=== PATIENT | female | born 1950 | race Caucasian/White ===

== ENCOUNTER → 2017-01-30 | Outpatient (CLI) | payer OTHER, BC ==
[~2017-01-30] MED LIST: ALBU1AER9 INH; CHOL100010 PO; CHOL100027 PO; CMD/1 PO; FLNIN NAE; FLNIN/ NAE; LEVO100T7 PO; TRAM100T PO; WARF-246 PO; WARF5TAB90 PO; [UNRECOGNIZED DRUG - CODE] PO
[2017-01-30 13:42] LABS: CREATININE 0.66 mg/dl (0.60-1.20)
== END | disposition home or self-care (01) ==
LOC: C.LAB 12:22
PROVIDERS: ATTEND Obstetrics & Gynecology
DX: Z00.00 Encounter for general adult medical examination without abnormal findings (principal)

== ENCOUNTER → 2017-02-04 | Outpatient (CLI) | payer OTHER, BC ==
[~2017-02-04] MED LIST changes: +GADAVIST IV PRN
--- NOTE | 2017-02-05 13:35 | MAMMOGRAPHY REPORT ---
BREAST MRI OF BOTH BREASTS : 02/04/2017 CLINICAL HISTORY: 67-year-old woman with a history of right breast DCIS status post lumpectomy. Pat ient presents for additional surveillance. COMPARISON: Comparison is made to exams dated: 01/24/2016 mammogram, 01/16/2015 mammogram, 07/25/2014 mammogram, 07/25/2014 ultrasound biopsy, 09/14/2013 specimen, and 07/18/2015 breast MRI - [facility]. TECHNIQUE: Using a 1.5 Humera magnet and dedicated breast coil, multisequence axial images were obtai gerardo through the breasts. After uneventful IV administration of 6 mL of Gadavist, dynamic multiphase contrast-enhanced axial images, and sagittal postcontrast were obtained. Temporal subtraction axia l images and 3-D MIP images are provided. Everything was then reviewed on a 3-D workstation, [employer]. FINDINGS: There is no significant background parenchymal enhancement in the breasts. There is expec abiel architectural distortion and stable postsurgical changes in the upper outer quadrant of the righ t breast, at the site of prior lumpectomy. There is a stable 4 mm biopsy-proven fibroadenoma in the far posterior 9:00 right breast. No new suspicious enhancing mass, non-mass enhancement, unexpecte d architectural distortion or suspicious kinetics are identified in either breast. No skin thickeni ng or nipple retraction is identified. No suspicious axillary, subpectoral or internal mammary lymp hadenopathy is seen. There is susceptibility artifact along the midline sternum, from prior median sternotomy. IMPRESSION: ACR BI-RADS CATEGORY 2: BENIGN 1. Stable MRI appearance of the breasts, including postsurgical changes in the right upper outer qu adrant, and a biopsy proven fibroadenoma in the 9:00 right breast. There is no MRI evidence of ernesto gnancy bilaterally. Continuation of annual screening mammography and additional surveillance with b reast MRI is recommended. 2. The patient is due for bilateral mammography at this time. The patient will receive written notification of the results. Lyndsay Bhakta M.D. ay/:02/04/2017 22:48:16 [employer]erry [employer] Captain: administrative services assistant, [facility] letter sent: Normal 1/2 BI-RADS Code: ACR BI-RADS Category 2: Benign
== END | disposition home or self-care (01) ==
LOC: C.MRI 15:25
PROVIDERS: ATTEND Obstetrics & Gynecology
DX: C50.919 Malignant neoplasm of unspecified site of unspecified female breast (principal); D24.1 Benign neoplasm of right breast

== ENCOUNTER → 2017-02-05 | Outpatient (CLI) | payer OTHER, BC ==
[~2017-02-05] MED LIST changes: -GADAVIST IV PRN
--- NOTE | 2017-02-05 15:41 | MAMMOGRAPHY REPORT ---
BILATERAL DIGITAL SCREENING MAMMOGRAM TOMOSYNTHESIS WITH CAD: 02/05/2017 CLINICAL HISTORY: Asymptomatic. Personal history of breast cancer. TECHNIQUE: Breast tomosynthesis in addition to standard 2D mammography was performed. Current study was also evaluated with a Computer Aided Detection (CAD) system. COMPARISON: Comparison is made to exams dated: 01/24/2016 mammogram, 02/02/2015 mammogram, 01/16/2015 mammogram, 07/25/2014 mammogram, 08/16/2013 mammogram, and 08/08/2013 mammogram - [facility]. BREAST COMPOSITION: There are scattered areas of fibroglandular density in both breasts. FINDINGS: No suspicious masses, calcifications, or areas of architectural distortion are noted in e ither breast. There has been no significant interval change compared to prior exams. There are stab le postsurgical changes in the right upper outer quadrant from prior lumpectomy. A linear scar iván er denotes a scar in the right upper outer breast. A biopsy marker clip is again noted in the right 9:00 breast. Bilateral benign-appearing calcifications, predominantly vascular calcifications, are again noted. Small cluster of calcifications in the left subareolar breast is stable dating back t o at least the 2008 exam, and considered benign given long-term stability. IMPRESSION: ACR BI-RADS CATEGORY 2: BENIGN There is no mammographic evidence of malignancy. A 1 year screening mammogram is recommended. The p atient will receive written notification of the results. Approximately 10% of breast cancers are not detected with mammography. A negative mammographic repor t should not delay biopsy if a clinically suggestive mass is present. Shima Arango M.D. ah/:02/05/2017 14:04:59 Type Cutter: Young DOWNEY(R)(M), [facility] letter sent: Normal 1/2 BI-RADS Code: ACR BI-RADS Category 2: Benign
== END | disposition home or self-care (01) ==
LOC: C.MAMM 10:13
PROVIDERS: ATTEND Obstetrics & Gynecology
DX: Z12.31 Encounter for screening mammogram for malignant neoplasm of breast (principal); Z85.3 Personal history of malignant neoplasm of breast

== ENCOUNTER → 2017-03-23 | Outpatient (CLI) | payer OTHER, BC ==
[2017-03-23 15:57] LABS: BASO % 0.4 %; BASO ABS # 0.03 K/uL (0-0.2); COMPLETE YES; EOS % 3.9 %; HEMATOCRIT 39.4 % (37-47); IG% 0.3 %; LYMPH % 22.1 %; LYMPH ABS # 1.54 K/uL (1.2-3.4); MEAN CELL VOLUME 95.6 fL (80-100); MEAN CORPUSCULAR HEMOGLOBIN 31.3 pg (25-34); MEAN CORPUSCULAR HGB CONC 32.7 g/dl (32-36); MEAN PLATELET VOLUME 10.6 fL (7.4-10.4); MONO % 6.7 %; NEUT % 66.6 %; PLATELET COUNT 254 K/uL (130-400); RED BLOOD COUNT 4.12 M/uL (4.2-5.4); WHITE BLOOD COUNT 6.98 K/uL (4.8-10.8)
[2017-03-23 16:05] LABS: INR 2.9 (0.9-1.1); PROTHROMBIN TIME (PATIENT) 32.9 SECONDS (9.0-12.0)
[2017-03-23 16:22] LABS: CALCIUM 9.3 mg/dl (8.5-10.1)
[2017-03-23 16:25] LABS: BLOOD UREA NITROGEN 15 mg/dl (7-18); BUN/CREATININE RATIO 21.9 (10-20); CARBON DIOXIDE 28 mmol/L (21-32); CHLORIDE 104 mmol/L (98-107); CREATININE 0.69 mg/dl (0.60-1.20); GLUCOSE 78 mg/dl (70-99); POTASSIUM 4.6 mmol/L (3.5-5.1); SODIUM 139 mmol/L (136-145)
[2017-03-23 16:35] LABS: THYROID STIMULATING HORMONE 0.981 uIu/ml (0.300-4.500)
== END | disposition home or self-care (01) ==
LOC: C.LAB 15:03
PROVIDERS: ATTEND Internal Medicine Geriatric Medicine
DX: E03.9 Hypothyroidism, unspecified (principal); M19.90 Unspecified osteoarthritis, unspecified site; Z79.01 Long term (current) use of anticoagulants; M85.80 Other specified disorders of bone density and structure, unspecified site

== ENCOUNTER 2017-08-11 16:54 | Emergency (ER) | payer OTHER, BC ==
[~2017-08-11] VITALS: Ht 171.5 cm; Wt 60.0 kg
[~2017-08-11 16:54] MED LIST changes: -CHOL100027 PO; -CMD/1 PO; -FLNIN/ NAE; -WARF-246 PO; -[UNRECOGNIZED DRUG - CODE] PO
[2017-08-11 16:56] VITALS: TEMP 37; Ht 171.5 cm; Wt 60.0 kg
[2017-08-11] MEDS ORDERED: WARF-246 PO (17:23)
[2017-08-11] MEDS ORDERED: CMD/1 PO (17:23)
[2017-08-11] MEDS ORDERED: CHOL100027 PO (17:23)
[2017-08-11] MEDS ORDERED: [UNRECOGNIZED DRUG - CODE] PO (17:23)
[2017-08-11] MEDS ORDERED: FLNIN/ NAE (17:23)
[2017-08-11] MEDS ORDERED: TRAMADOL HCL 50 MG TAB PO STA (17:30)
--- NOTE | 2017-08-11 17:57 | EMERGENCY ROOM VISIT NOTE ---
ED Visit Note First contact with patient: 17:22 CHIEF COMPLAINT: Left Foot pain HISTORY OF PRESENT ILLNESS: This 67-year-old female patient presents to the emergency department, approximately one hour after injuring her left foot. The patient is now complaining of swelling and pain in the left foot at rest and worse with weight bearing. The patient states she has not been able to bear weight without assistance since the injury occurred. The patient states she was on the confucianist of her cough match, when she did not realize there is an unmarked sprinkler head in a hole in the ground. The patient states she accidentally stepped into the hole, and believes she turned her foot outward. The patient denies any ankle pain, and states her pain is all located in the dorsal, lateral aspect of the left foot. She states she did fall sideways, but denies hitting her head. The patient rates the pain as throbbing and 9/10 with movement. The patient has not had relief of the pain, but she has not taken any pain medication. She did take her regularly prescribed tramadol this morning. No numbness or weakness. No ankle pain. There are no lacerations of the foot. The patient is able to move all of their toes, but this does cause discomfort. The patient has no discomfort with movement of the ankle without pain. No previous fracture to this foot. The patient is on Coumadin. REVIEW OF SYSTEMS: GENERAL: A 6 system review of systems was completed with positives and pertinent negatives in the HPI. ALLERGIES: Sulfa MEDICATIONS: Tramadol, Synthroid, Coumadin, vitamin D, albuterol, Flonase PMH: Artificial heart valve, arthritis, hypothyroidism SOCIAL HISTORY: Patient lives locally with family. She admits to occasional alcohol use. The patient denies drug or tobacco use. PHYSICAL EXAM: Vital Signs: Reviewed Nurse's notes, vital signs stable. GENERAL : Is a 67-year-old female, presents in a wheelchair, in no acute distress, but appears in pain, well-developed, well-nourished. MUSCULOSKELATAL: There is no visual deformity of the left foot. There is moderate erythema and ecchymosis. There is no warmth. There is tenderness and swelling over the dorsal, lateral aspect of the left foot. There is no tenderness over the lateral or medial malleolus. No tenderness of the tib/fib. The range of motion of the left foot is mildly limited secondary to pain. There is no tenderness over the plantar fascia. The skin is intact and there are no lacerations or puncture wounds. Dorsalis pedis pulse 2+. Capillary refill less than 2 seconds. RADIOLOGY: X-Ray Left Foot: LEFT FOOT 3 VIEWS CLINICAL HISTORY: Left foot injury and pain. FINDINGS: 3 views of left foot are obtained. No prior studies are available for comparison at the time of dictation. The skeletal structures are osteopenic. No fracture is seen. Mild to moderate arthritic changes present at the first metatarsophalangeal joint. The joint spaces of the foot are otherwise maintained. The overlying soft tissues are within normal limits. IMPRESSION: There is no radiographic evidence of left foot fracture. Electronically signed by: Serafin Nava M.D. 08/11/2017 6:01 PM Dictated Date/Time: 08/11/2017 5:57 PM EMERGENCY DEPARTMENT COURSE: I examined the patient. The patient was given 50 mg tramadol. I did offer the patient stronger pain medication and she declines. An X-ray of the left foot was reviewed by myself and radiologist and reveals no acute fracture or dislocation. The patient was placed in a fracture boot and instructed on the use of crutches. The patient was discharged home in good condition. The patient was seen and evaluated by Dr. Velázquez who is in agreement with the assessment and plan. I attest that I have personally reviewed the patient's current medication list. Patient was found to have normal blood pressure on screening and does not require follow-up. DIFFERENTIAL DIAGNOSIS: Fracture, contusion, sprain, strain, malignancy, and others DIAGNOSIS: Left foot contusion Problem List Surgical Problems: (1) H/O lumpectomy Status: Resolved (2) Hx of artificial heart valve replacement Status: Resolved Current/Historical Medications Scheduled Cholecalciferol (Vitamin D 1000 Unit), 1,000 INTER.UNIT PO DAILY Fluticasone Propionate (Fluticasone Propionate), 2 SPRAYS CHALO DAILY Levothyroxine Sodium (Levothyroxine Sodium), 100 MCG PO QAM Tramadol HCl (Tramadol HCl ER), 100 MG PO QAM Warfarin Sod (Warfarin Sodium), 1 MG PO DAILY Warfarin Sodium (Warfarin Sodium), 5 MG PO DAILY Allergies Coded Allergies: Sulfa Drugs (Verified Allergy, Unknown, RASH, 09/04/16) Vital Signs Date Time Temp Pulse Resp B/P (MAP) Pulse Ox O2 Delivery O2 Flow Rate FiO2 08/11/17 19:24 89 20 139/85 98 08/11/17 16:56 37.0 94 20 116/69 98 Room Air Medications Administered Medications (Trade) Dose Ordered Sig/Alex Route Start Time Stop Time Status Last Admin Dose Admin Tramadol HCl (Ultram Tab) 50 mg NOW STAT PO 08/11/17 17:30 08/11/17 17:32 DC 08/11/17 17:37 50 MG Departure Information Impression Primary Impression: Contusion of foot Dispostion Home / Self-Care Condition GOOD Referrals Jose Sherman M.D. (PCP) [facility] Patient Instructions ED Contusion Foot, My [facility] Additional Instructions ORTHOPEDIC INSTRUCTIONS: You were seen in the ED today for left foot injury. X-Ray did not show a fracture, however, I would like to treat you as if you have a fracture at this time due to signs/symptoms. Acetaminophen(Tylenol) may be used for fever or pain. Use 1000mg every six hours as needed. Avoid using more than 3000mg in a 24 hour period. Ice compresses for 20 minutes at a time four times daily for 2-3 days. Use the crutches as instructed. Rest and elevate your injury. Wear the post-op shoe while up and moving around. Return to the ER immediately for any numbness, tingling, severe pain, extreme swelling in the extremity or as needed. Call [facility], [phone], tomorrow to arrange follow up for your injury. Follow-up with your primary care physician in 2 to 3 days for a recheck of your current condition. Problem Qualifiers Primary Impression: Contusion of foot Encounter type: initial encounter Laterality: left Qualified Codes: S90.32XA - Contusion of left foot, initial encounter
--- NOTE | 2017-08-11 18:02 | DIAGNOSTIC IMAGING REPORT ---
LEFT FOOT 3 VIEWS CLINICAL HISTORY: Left foot injury and pain. FINDINGS: 3 views of left foot are obtained. No prior studies are available for comparison at the time of dictation. The skeletal structures are osteopenic. No fracture is seen. Mild to moderate arthritic changes present at the first metatarsophalangeal joint. The joint spaces of the foot are otherwise maintained. The overlying soft tissues are within normal limits. IMPRESSION: There is no radiographic evidence of left foot fracture. Electronically signed by: Serafin Nava M.D. 08/11/2017 6:01 PM Dictated Date/Time: 08/11/2017 5:57 PM
[2017-08-11 19:24] VITALS: BP 139/85; PULSE 89; O2SAT 98
== END 2017-08-11 19:25 | disposition home or self-care (01) ==
LOC: C.EDB 16:55 → C.EDD 19:25
DX: S90.32XA Contusion of left foot, initial encounter (principal); W01.0XXA Fall on same level from slipping, tripping and stumbling without subsequent striking against object, initial encounter; E03.9 Hypothyroidism, unspecified; M19.90 Unspecified osteoarthritis, unspecified site; Z95.2 Presence of prosthetic heart valve; Z79.01 Long term (current) use of anticoagulants; Z79.899 Other long term (current) drug therapy; Z88.2 Allergy status to sulfonamides

== ENCOUNTER → 2017-08-28 | Outpatient (CLI) | payer OTHER, BC ==
[~2017-08-28] MED LIST changes: -ALBU1AER9 INH; -CHOL100010 PO; +CHOL100027 PO; +CMD/1 PO; -FLNIN NAE; +FLNIN/ NAE; -TRAM100T PO; +WARF-246 PO; -WARF5TAB90 PO; +[UNRECOGNIZED DRUG - CODE] PO
== END | disposition home or self-care (01) ==
LOC: C.RDSM 06:52
PROVIDERS: ATTEND Physical Medicine & Rehabilitation Sports Medicine
DX: M25.561 Pain in right knee (principal)

== ENCOUNTER → 2017-10-09 | Outpatient (CLI) | payer OTHER, BC ==
[2017-10-09 13:21] LABS: BASO % 0.6 %; BASO ABS # 0.03 K/uL (0-0.2); COMPLETE YES; EOS % 3.7 %; HEMATOCRIT 39.1 % (37-47); IG% 0.2 %; LYMPH % 27.1 %; LYMPH ABS # 1.38 K/uL (1.2-3.4); MEAN CELL VOLUME 98.2 fL (80-100); MEAN CORPUSCULAR HEMOGLOBIN 32.7 pg (25-34); MEAN CORPUSCULAR HGB CONC 33.2 g/dl (32-36); MEAN PLATELET VOLUME 10.7 fL (7.4-10.4); MONO % 8.6 %; NEUT % 59.8 %; PLATELET COUNT 206 K/uL (130-400); RED BLOOD COUNT 3.98 M/uL (4.2-5.4); WHITE BLOOD COUNT 5.09 K/uL (4.8-10.8)
[2017-10-09 13:28] LABS: INR 1.9 (0.9-1.1); PROTHROMBIN TIME (PATIENT) 20.7 SECONDS (9.0-12.0)
[2017-10-09 13:48] LABS: BLOOD UREA NITROGEN 13 mg/dl (7-18); BUN/CREATININE RATIO 20.2 (10-20); CALCIUM 9.4 mg/dl (8.5-10.1); CARBON DIOXIDE 30 mmol/L (21-32); CHLORIDE 103 mmol/L (98-107); CREATININE 0.65 mg/dl (0.60-1.20); GLUCOSE 87 mg/dl (70-99); POTASSIUM 4.5 mmol/L (3.5-5.1); SODIUM 139 mmol/L (136-145)
== END | disposition home or self-care (01) ==
LOC: C.LAB 12:11
PROVIDERS: ATTEND Internal Medicine Geriatric Medicine
DX: E03.9 Hypothyroidism, unspecified (principal); M19.90 Unspecified osteoarthritis, unspecified site; Z79.01 Long term (current) use of anticoagulants

== ENCOUNTER → 2017-12-25 | Outpatient (CLI) | payer OTHER, BC ==
--- NOTE | 2017-12-25 15:26 | DIAGNOSTIC IMAGING REPORT ---
CHEST 2 VIEWS ROUTINE CLINICAL HISTORY: 67 years-old Female presenting with ACUTE BRONCHITIS. TECHNIQUE: PA and lateral views of the chest were obtained. COMPARISON: 10/09/2016. FINDINGS: Atherosclerosis of the aortic arch. Cardiac silhouette normal in size. Median sternotomy wires noted. Mild hyperinflation of the lungs with coarsened lung markings. No focal opacity. Linear hyperdensity on lateral view does not have a correlate on frontal view and was not present on prior exam. This may represent an external object. No other focal opacity. No pleural effusion or pneumothorax. Osseous structures normal. Upper abdomen normal. IMPRESSION: 1. Hyperinflation suggests emphysema. No focal infiltrate to suggest pneumonia. 2. Linear hyperdensity on lateral view does not have a correlate on frontal view and was not present on prior exam. This may represent an external object. Correlate clinically. Electronically signed by: Phill Stacy M.D. 12/25/2017 3:24 PM Dictated Date/Time: 12/25/2017 3:22 PM
== END ==
LOC: C.RADBC 14:49
PROVIDERS: ATTEND Internal Medicine Geriatric Medicine
DX: J20.9 Acute bronchitis, unspecified (principal)

== ENCOUNTER → 2018-02-08 | Outpatient (CLI) | payer OTHER, BC ==
[2018-02-03 10:29] LABS: BLOOD UREA NITROGEN 12 mg/dl (7-18); CREATININE 0.76 mg/dl (0.60-1.20)
[~2018-02-08] MED LIST changes: -CMD/1 PO; +GADAVIST IV PRN; +WARF-298 PO
--- NOTE | 2018-02-09 07:47 | MAMMOGRAPHY REPORT ---
BREAST MRI OF BOTH BREASTS : 02/08/2018 CLINICAL HISTORY: 68-year-old woman with a personal history of right breast DCIS status post breast c onservation treatment presents for continued MRI surveillance status post therapy. She also has a hi story of a biopsy-proven fibroadenoma in the 9:00 right breast. COMPARISON: Comparison is made to exams dated: 02/05/2017 mammogram, 02/04/2017 breast MRI, 01/24/2016 mammogram, 07/18/2015 breast MRI, 02/02/2015 mammogram, and 01/16/2015 mammogram - [facility]. TECHNIQUE: Using a 1.5 Humera magnet and dedicated breast coil, multisequence axial images were obtai gerardo through the breasts. After uneventful IV administration of 5 mL of Gadavist, dynamic multiphase contrast-enhanced axial images, and sagittal postcontrast were obtained. Temporal subtraction axial images and 3-D MIP images are provided. Everything was then reviewed on a 3-D workstation, [employer]. FINDINGS: There is no significant background parenchymal enhancement. Again noted is a 4 mm circumscribed mass with adjacent susceptibility artifact in the 9:00 posterior right breast, denoting the previously bi opsy-proven fibroadenoma. There is expected architectural distortion in the upper outer posterior ri ght breast, at the site of prior lumpectomy. No new suspicious enhancing masses, non-mass enhancemen t, unexpected architectural distortion or suspicious kinetics are seen bilaterally. No new suspiciou s axillary, subpectoral or internal mammary lymphadenopathy is seen. No focal skin thickening or nip ple retraction. There is susceptibility artifact in the midsternal area, from median sternotomy wires. IMPRESSION: ACR BI-RADS CATEGORY 2: BENIGN Stable MRI appearance of the breasts, without evidence of malignancy. A 1 year screening mammogram a nd a breast MRI is recommended. The patient will receive written notification of the results. Lyndsay Bhakta M.D. ay/:02/08/2018 21:29:50 [employer] Dean: pastry cook helper, [facility] letter sent: Normal 1/2 BI-RADS Code: ACR BI-RADS Category 2: Benign
== END | disposition home or self-care (01) ==
LOC: C.MRI 08:06
PROVIDERS: ATTEND Obstetrics & Gynecology
DX: Z85.3 Personal history of malignant neoplasm of breast (principal)

== ENCOUNTER → 2018-02-08 | Outpatient (CLI) | payer OTHER, BC ==
[~2018-02-08] MED LIST changes: -GADAVIST IV PRN
--- NOTE | 2018-02-09 07:46 | MAMMOGRAPHY REPORT ---
BILATERAL DIGITAL SCREENING MAMMOGRAM TOMOSYNTHESIS WITH CAD: 02/08/2018 CLINICAL HISTORY: Asymptomatic. Personal history of breast cancer. TECHNIQUE: Breast tomosynthesis in addition to standard 2D mammography was performed. Current study was also evaluated with a Computer Aided Detection (CAD) system. COMPARISON: Comparison is made to exams dated: 02/08/2018 breast MRI, 02/05/2017 mammogram, 02/04/2017 b reast MRI, 01/24/2016 mammogram, 07/18/2015 breast MRI, and 02/02/2015 mammogram - [facility]. BREAST COMPOSITION: There are scattered areas of fibroglandular density in both breasts. FINDINGS: There is expected architectural distortion in the upper outer quadrant of the right breast, at the site of prior lumpectomy. A linear scar marker overlies the skin of the right upper outer br east. There is a stable ribbon-shaped biopsy marker clip in the right upper outer middle one third o f the breast. Moderate vascular calcifications bilaterally. No suspicious mass, architectural disto rtion or cluster of suspicious microcalcifications is seen. IMPRESSION: ACR BI-RADS CATEGORY 1: NEGATIVE There is no mammographic evidence of malignancy. A 1 year screening mammogram is recommended. The pa tient will receive written notification of the results. Approximately 10% of breast cancers are not detected with mammography. A negative mammographic report should not delay biopsy if a clinically suggestive mass is present. Lyndsay Bhakta M.D. ay/:02/08/2018 16:26:31 Transition Lead: Johanny Pandey, [facility] letter sent: Normal 1/2 BI-RADS Code: ACR BI-RADS Category 1: Negative
== END | disposition home or self-care (01) ==
LOC: C.MAMM 10:22
PROVIDERS: ATTEND Obstetrics & Gynecology
DX: Z12.31 Encounter for screening mammogram for malignant neoplasm of breast (principal); Z85.3 Personal history of malignant neoplasm of breast

== ENCOUNTER → 2018-02-10 | Outpatient (CLI) | payer OTHER, BC ==
--- NOTE | 2018-02-10 17:59 | DIAGNOSTIC IMAGING REPORT ---
TWO VIEW CHEST CLINICAL HISTORY: Cough and dyspnea. FINDINGS: PA and lateral chest radiographs are compared to study dated 12/25/2017 and correlated with chest CT dated 11/17/2008. The patient is status post midline sternotomy. The cardiomediastinal silhouette is unremarkable. Chronic interstitial thickening is similar to previous. No airspace consolidation or pleural effusion is identified. There is no pneumothorax. The skeletal structures are osteopenic. The bony thorax appears intact. IMPRESSION: No active disease in the chest. Electronically signed by: Serafin Nava M.D. 02/10/2018 5:57 PM Dictated Date/Time: 02/10/2018 5:55 PM
[2018-02-10 18:43] LABS: BASO % 0.6 %; BASO ABS # 0.04 K/uL (0-0.2); EOS ABS # 0.25 K/uL (0-0.5); HEMATOCRIT 38.8 % (37-47); HEMOGLOBIN 13.2 g/dL (12.0-16.0); IG# 0.01 K/uL (0.00-0.02); LYMPH % 19.5 %; LYMPH ABS # 1.23 K/uL (1.2-3.4); MEAN CELL VOLUME 94.4 fL (80-100); MEAN CORPUSCULAR HEMOGLOBIN 32.1 pg (25-34); MEAN PLATELET VOLUME 10.4 fL (7.4-10.4); MONO % 9.7 %; MONO ABS # 0.61 K/uL (0.11-0.59); NEUT ABS # 4.17 K/uL (1.4-6.5); PLATELET COUNT 264 K/uL (130-400); RED CELL DISTRIBUTION WIDTH CV 14.5 % (11.5-14.5); RED CELL DISTRIBUTION WIDTH SD 49.2 fL (36.4-46.3); WHITE BLOOD COUNT 6.31 K/uL (4.8-10.8)
== END | disposition home or self-care (01) ==
LOC: C.RAD 17:28
PROVIDERS: ATTEND Internal Medicine
DX: R05 Cough (principal); R06.02 Shortness of breath; R09.89 Other specified symptoms and signs involving the circulatory and respiratory systems

== ENCOUNTER → 2018-02-24 | Outpatient (CLI) | payer OTHER, BC ==
[~2018-02-24] MED LIST changes: +OPTIRAY 320 IV PRN
--- NOTE | 2018-02-24 08:40 | DIAGNOSTIC IMAGING REPORT ---
CHEST CT WITH CONTRAST CT DOSE: 225.55 mGy.cm HISTORY: Acute shortness of breath with restrictive lung disease TECHNIQUE: Multiaxial CT images of the chest were performed following the intravenous administration of contrast. A dose lowering technique was utilized adhering to the principles of ALARA. COMPARISON: Chest CT 11/17/2008, chest radiographs 12/25/2017 FINDINGS: No dominant thyroid nodule. Scattered nonenlarged bilateral axillary and mediastinal lymph nodes. Mildly prominent subcarinal lymph nodes measure up to 1.6 x 0.9 cm. Mildly prominent nonenlarged right hilar lymph nodes measure up to 7 mm in short axis, possibly reactive. Heart is normal in size without pericardial effusion. Prosthetic mitral valve. Heart is normal in size. Thoracic aorta is normal in course and caliber without aneurysm or dissection. The imaged great vessels appear patent. The opacified pulmonary arterial tree and IVC are unremarkable. Biapical pleural-parenchymal scarring without pneumothorax or pleural effusion. 5 mm pleural-based solid nodule of the left lower lobe as seen on image 207 series 4, previously measuring 4 mm on study dated 11/17/2008. 3 mm solid nodule of the left lower lobe as seen on image 188 series 4. Small perifissural lymph nodes are seen on the left. Subsegmental are calcified granuloma of the superior segment left lower lobe. 3 mm nodule lingula on image 133 series 4. Linear subsegmental atelectasis/scarring of the inferior segment lingula. 5 mm linear area of nodularity within the right lower lobe, image 225 series 4 is unchanged suggesting area of scarring. Fissural lymph nodes seen adjacent to the right middle lobe measuring up to 5 mm. Central airways are patent. Multifocal multisegmental multilobar distribution of diffuse centrilobular groundglass opacities with areas of mosaic attenuation suggesting associated air trapping are noted bilaterally within apical to basilar distribution. 9 mm low attenuating lesion of the right hepatic lobe suggests possible hepatic cyst. Postsurgical changes about the right breast. Soft tissues are unremarkable. Prior median sternotomy changes. The bones appear intact.. IMPRESSION: 1. Multifocal, multisegmental and multilobar distribution of diffuse centrilobular groundglass opacities are noted diffusely bilaterally. Differential considerations would include infectious or inflammatory pneumonitis, hypersensitivity pneumonitis or respiratory bronchiolitis interstitial lung disease (if the patient has a history of smoking). Close clinical correlation is needed. 2. Associated patchy areas of mosaic attenuation suggest air-trapping. 3. No pathologically enlarged lymph nodes. 4. Prior median sternotomy with prosthetic mitral valve. Electronically signed by: Andres Youssef M.D. 02/24/2018 8:39 AM Dictated Date/Time: 02/24/2018 8:25 AM
[2018-02-24 09:32] LABS: BASO % 0.3 %; BASO ABS # 0.03 K/uL (0-0.2); EOS % 2.1 %; HEMATOCRIT 40.1 % (37-47); HEMOGLOBIN 13.4 g/dL (12.0-16.0); IG# 0.02 K/uL (0.00-0.02); LYMPH % 6.9 %; LYMPH ABS # 0.66 K/uL (1.2-3.4); MEAN CELL VOLUME 94.1 fL (80-100); MEAN CORPUSCULAR HEMOGLOBIN 31.5 pg (25-34); MEAN CORPUSCULAR HGB CONC 33.4 g/dl (32-36); MEAN PLATELET VOLUME 10.3 fL (7.4-10.4); MONO % 6.6 %; MONO ABS # 0.63 K/uL (0.11-0.59); NEUT % 83.9 %; NEUT ABS # 7.97 K/uL (1.4-6.5); PLATELET COUNT 295 K/uL (130-400); RED CELL DISTRIBUTION WIDTH CV 14.5 % (11.5-14.5); RED CELL DISTRIBUTION WIDTH SD 49.4 fL (36.4-46.3); WHITE BLOOD COUNT 9.51 K/uL (4.8-10.8)
[2018-02-24 10:10] LABS: BLOOD UREA NITROGEN 12 mg/dl (7-18); CALCIUM 8.8 mg/dl (8.5-10.1); CARBON DIOXIDE 26 mmol/L (21-32); CHOLESTEROL 198 mg/dl (0-200); GLUCOSE 83 mg/dl (70-99); POTASSIUM 3.7 mmol/L (3.5-5.1); SODIUM 135 mmol/L (136-145)
[2018-02-24 10:20] LABS: LDL CHOLESTEROL CALCULATED 100 mg/dl
[2018-02-27 04:24] LABS: ANA SCREEN TC 249X NEGATIVE (NEGATIVE); ANTI-SS-A <1.0 NEG AI (<1.0 NEG); ANTI-SS-B <1.0 NEG AI (<1.0 NEG); ANTICARDIOLIPID AB IGA <11 APL (< = 11); COMPLEMENT C3 TC 44859W 133 MG/DL (90-180); COMPLEMENT C4 TC 44982E 26 MG/DL (16-47); MICROSOMAL AB <1 IU/ML (<9)
== END | disposition home or self-care (01) ==
LOC: C.CTS 08:06
PROVIDERS: ATTEND Physician Assistant Medical
DX: J98.4 Other disorders of lung (principal); E03.9 Hypothyroidism, unspecified; M19.90 Unspecified osteoarthritis, unspecified site; Z79.01 Long term (current) use of anticoagulants; M85.80 Other specified disorders of bone density and structure, unspecified site; Z95.2 Presence of prosthetic heart valve

== ENCOUNTER → 2018-06-07 | Outpatient (CLI) | payer OTHER, BC ==
[~2018-06-07] MED LIST changes: -OPTIRAY 320 IV PRN; +[UNRECOGNIZED DRUG - CODE] PO; -[UNRECOGNIZED DRUG - CODE] PO
--- NOTE | 2018-06-07 09:48 | DIAGNOSTIC IMAGING REPORT ---
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 The bones are mildly osteopenic. There are osteoarthritic type changes present at the level of the proximal interphalangeal joint of the fourth finger and distal interphalangeal joint of the fifth finger. Osteoarthritic type changes are also present the level the first carpal metacarpal joint, and first carpal phalangeal joint. There are persistent periarticular calcifications at the level of the distal interphalangeal joint of the fourth finger. There are no definite bony erosions. IMPRESSION: 1. Stable osteoarthritic type changes as described above 2. Persistent periarticular calcifications at the level of the distal interphalangeal joint of the fourth finger 3. Mild osteopenia Electronically signed by: Scar Velázquez M.D. 06/07/2018 9:47 AM Dictated Date/Time: 06/07/2018 9:44 AM
--- NOTE | 2018-06-07 09:52 | DIAGNOSTIC IMAGING REPORT ---
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 DISCUSSION: Considerable degenerative change of the proximal interphalangeal joint of the fourth finger. This is seen to a lesser extent involving the remaining fingers. There is no evidence for soft tissue swelling. IMPRESSION: Considerable degenerative change of the interphalangeal joints. This is most prominent involving the proximal interphalangeal joint of the fourth finger. An inflammatory arthritic change must be considered. The above report was generated using voice recognition software. It may contain grammatical, syntax or spelling errors. Electronically signed by: Dawit Betts M.D. 06/07/2018 9:51 AM Dictated Date/Time: 06/07/2018 9:47 AM
== END | disposition home or self-care (01) ==
LOC: C.RAD1850 09:34
PROVIDERS: ATTEND Internal Medicine Rheumatology
DX: M06.4 Inflammatory polyarthropathy (principal); M79.641 Pain in right hand; M79.642 Pain in left hand; M61.40 Other calcification of muscle, unspecified site

== ENCOUNTER → 2018-06-09 | Outpatient (CLI) | payer OTHER, BC ==
[~2018-06-09] MED LIST changes: +OPTIRAY 320 IV PRN
--- NOTE | 2018-06-09 08:29 | DIAGNOSTIC IMAGING REPORT ---
CT SCAN OF THE CHEST WITH IV CONTRAST CLINICAL HISTORY: Pulmonary nodules. Interstitial lung disease. COMPARISON STUDY: Chest CT scans dated 02/24/2018 and 11/17/2008. TECHNIQUE: Following the IV administration of 115 cc of Optiray 320, CT scan of the thorax was performed from the thoracic inlet to the upper abdomen. Images are reviewed in the axial, sagittal, and coronal planes. IV contrast was administered without complication. A dose lowering technique was utilized adhering to the principles of ALARA. CT DOSE: 215.34 mGy.cm FINDINGS: Thyroid: Markedly atrophic. Thoracic aorta: The thoracic aorta is normal in caliber and demonstrates standard 3-vessel arch anatomy. No dissection is seen. Pulmonary vasculature: The pulmonary trunk is normal in caliber. There are no filling defects identified in the central pulmonary vessels to indicate pulmonary embolus. Note that this examination was not protocoled for evaluation of the pulmonary arteries. Heart: The patient is status post midline sternotomy and mitral valve surgery. The heart is mildly enlarged and without pericardial effusion. Lungs and pleural spaces: There is biapical scarring. No airspace consolidation or pleural effusion is seen. There is no subpleural reticulation, traction bronchiectasis, or honeycombing. Mild air trapping is present at the lung bases. The trachea and central airways are clear. Small fat-containing Bochdalek hernias are present at both lung bases. A 6 mm pleural-based nodule in the left lower lobe is seen on image #208 and a 7 mm nodule in the right lower lobe seen on image #2015. These have been present dating back to 2008 and are of doubtful significance. Additional subcentimeter foci of pleural-based nodularity along the fissures are of doubtful significance. Diffuse groundglass nodular change seen on 02/24/2018 has largely resolved. A 4 mm residual groundglass nodule in the right lower lobe as seen on image #186, and a 4 mm groundglass nodule in the left upper lobe is seen on image #129. Mediastinum: There is no mediastinal lymphadenopathy. Coleen: Clear. Axillae: There is no axillary lymphadenopathy. Upper abdomen: There is a 10 mm hepatic cyst. Partially visualized upper abdominal viscera is otherwise within normal limits. Skeletal structures: The skeletal structures are osteopenic. Arthritic change is noted in the shoulders. There are scattered spinal hemangiomas. No lytic or blastic bony lesions are seen. IMPRESSION: 1. There is no airspace consolidation or pleural effusion. 2. Diffuse groundglass change/nodularity seen on 02/24/2018 has largely resolved and was likely on an infectious/inflammatory basis. 3. Mild cardiac enlargement. 4. There are 2 residual foci of groundglass nodularity which measure up to 4 mm. An additional 6 month follow-up examination is recommended for reassessment. 5. Additional subcentimeter foci of pleural-based nodularity have been present dating back to 2008 and are of doubtful significance. 6. Mild air trapping is again noted at the lung bases. Electronically signed by: Serafin Nava M.D. 06/09/2018 8:28 AM Dictated Date/Time: 06/09/2018 8:18 AM
== END | disposition home or self-care (01) ==
LOC: C.CTS 07:59
PROVIDERS: ATTEND Internal Medicine Geriatric Medicine
DX: J84.9 Interstitial pulmonary disease, unspecified (principal); R91.8 Other nonspecific abnormal finding of lung field

== ENCOUNTER 2024-04-17 16:42 | Inpatient (IN) ==
--- OUTSIDE RECORDS SUMMARY | 2024-04-17 16:46 | External Medical Summary | Continuity of Care Document ---
Author Name Unknown Organization [id number] Address [address] [place] [phone] Care Team Providers Care Floorwalker Name Role Phone Joshua Herrera V Primary Care Ph ysician [phone] [id number] Date[facility]): 04/14/24 - 04/14/24 [facility] [address] [place] [address] Encounter Diagnosis Left knee DJD(Discharge Diagnosis) - 04/14/24 Discharge Disposition: Home or Self Care Attending Physician: DILAN Esqueda Dennis Allergies, Adverse Reactions, Alerts Substance Criticality Severity Reaction Reaction Severity Status sulfa drugs Rash Active Assessment and Plan Extracted from: Title:Clinical Document Author:DILAN Esqueda Denn is Date:04/14/24 OUTPATIENT NOTE Name: PETEY NAVARRO Patient Number:[id number] : 1950 Date of Service: 04/14/2024 HPI: This 74-year-old female presents to the clinic today for left knee Euflexxa injection #3. Patient states that she has not experienced any significant pain relief after the initial injections. Currently she denies any signs or symptoms of infection and has no complaint of numbness or tingling in the left lower extremity. Physical examination: Left knee; range of motion is from 0 degrees of extension to 135 degrees of flexion. Patient experiences medial joint line tenderness when the knee is palpated in the flexed position. She has visible valgus malalignment. There is no laxity with varus or valgus stressing. AP drawer sign Primo test are negative. Her patella is not mobile due to arthritic change within the patellofemoral joint. She is neurovascularly intact in the left lower extremity. Impression: Left knee osteoarthritis Procedure: Patient was seated on the edge of the table with the left knee placed in the flexed position. Using the cap of the needle the lateral joint space of the left knee was marked. A timeout was performed with the patient and she verbalizes that we will proceed with left knee Euflexxa injection #3. Marked site as cleansed with a Betadine swab, anesthetized with ethyl chloride spray, and wiped clean with alcohol soaked 4 x 4. A 22-gauge needle connected to a prefilled syringe containing Euflexxa was easily passed through the lateral joint space of the left knee and injected free-flowing without meeting resistance. Upon removal of the needle patient had no bleeding. Site was again cleansed with an alcohol soaked 4 x 4, wiped dry with a sterile 4 x 4 and covered with a Band-Aid. JIM Garcia served as a witness for this procedure. Plan: Patient was advised to watch for signs symptoms of infection and if any should occur she was advised to either contact her clinic or go to the emergency department immediately. Patient verbalizes understanding of all information provided during today's visit. She thanks for the care that she received. If she has questions or concerns arise prior to her 3 month follow up, she will contact the clinic. This chart was completed utilizing 3TEN[employer] voice recognition software. Grammatical errors, random word insertions, pronoun errors, and in complete sentences are an occasional consequence of the system. Any questions or concerns about the content, text, or information contained within the body of this dictation should be addressed directly to the physician for clarification. Immunizations Given and Recorded Vaccine Date Status Refusal Reason influenza virus vaccine, inactivated 08/03/18 Give n Medications celecoxib 200 mg oral capsule Start: 05/07/20 10:34:00 AM EDT, 1 cap, PO, Daily, PRN: as needed for pain Start Date: 05/07/20 Status: Ordered Euflexxa 10 mg/mL intra-articular solution Start: 03/10/24 4:12:00 PM EDT, 20 mg =, intra-articular, q7days, Disp# 6 mL, Refills: 0, L KNEE DJD M17.12, Note to Pharmacy: 3 syringes for L knee., other Start Date: 03/10/24 Stop Date: 03/31/24 Status: Ordered Flonase Start: 10/15/10 10:43:37 AM EST, 1 spray, intranasal, Daily, Refills: 0, current medication from another provider Start Date: 10/15/10 Status: Ordered montelukast 10 mg oral tablet Start: 12/24/23 10:56:00 AM EST, 1 tab, PO, qPM, Disp# 90 tab, Refills: 3, Pharmacy: [id number] Start Date: 12/24/23 Status: Ordered Multiple Vitamins oral capsule Start: 10/15/10 10:41:47 AM EST, 1 cap, PO, Daily, Refills: 0, current medication from another provider Start Date: 10/15/10 Status: Ordered ProAir HFA 90 mcg/inh inhalation aerosol Start: 01/06/19 3:35:00 PM EST, 2 puff, inhaled, qid, Disp# 1 each, Refills: 2, PRN wheezing or SOB,Note to Pharmacy: PLease teach use, PRN: as needed for wheezing, Pharmacy: [id number] Start Date: 01/06/19 Status: Ordered Synthroid Start: 10/15/10 10:40:25 AM EST, 100 mcg =, PO, Daily, Refills: 0, current medication from another provider Start Date: 10/15/10 Status: Ordered tramadol 50 mg oral tablet Start: 07/15/13 2:52:00 PM EDT, 1 tab, PO, Daily, PRN: as needed for pain Start Date: 07/15/13 Status: Ordered Vitamin D3 1000 intl units oral tablet Start: 03/17/18 3:02:00 PM EDT, 1 tab, PO, Daily Start Date: 03/17/18 Status: Ordered warfarin Start: 10/15/10 10:38:22 AM EST, See Instructions, Daily, Refills: 0, 6 mg PO every other day, alternating with 5 mg, current medication from another provider Start Date: 10/15/10 Status: Ordered Mental Status 04/14/24 Barriers to Learning one year None evide nt Mandatory Health Literacy Documentation Yes Health Literacy Communication Barriers N ever Primary Language Kiswahili Problem List Condition Confirmation Course Effective Dates Status Health Status Informant Arthritis Confirmed Active Asthma Confirmed Active Seasonal and perennial allergic rhinoconjunctivitis Confirmed Active Contusion of left hip Confirmed Active Hypersensitivity pneumonitis Confirmed Active H/O: artificial joint Confirmed Active S/P knee replacement Confirmed Active Hypothyroidism Confirmed Active Abnormal CT scan, chest Confirmed Active Knee DJD 1 Confirmed Active Knee effusion, left Confirmed Active Left knee pain Confirmed Active Knee pain, bilateral Confirmed Active Mitral valve replaced Confirmed Active Left knee DJD Confirmed Active Other polyosteoarthritis Confirmed Active Psoriasis Confirmed Active Other psoriatic arthropathy Confirmed Active Abnormal diffusion capacity determined by pulmonary function test Confirmed Active Sprain of left foot Confirmed Active Wheezing Confirmed Active 1Right Diagnosis Diagnosis Type Effective Dates Health Status Cl inical Service Informant Left knee DJD Discharge Diagnosis 04/14/24 Procedures Procedure Date Related Diagnosis Body Site Status PFT - Pulmonary function tests 02/02/19 Completed Right TKA 05/18/12 Completed Knee meniscus 1 11/13/04 Completed Open heart valvuloplasty of mitral valve without replacement 11/13/94 Comple abiel Appendectomy Completed Hysterectomy Completed 1repair Social History Social History Type Response Smoking Status Never smoked cigaret rachid Sex Female Outpatient Note * DILAN Esqueda Dennis: PERFORM Event Display: .Outpt Note Authored Date: [id number] OUTPATIENT NOTE Name: PETEY NAVARRO Patient Number:[id number] : 1950 Date of Service: 04/14/2024 HPI: This 74-year-old female presents to the clinic today for left knee Euflexxa injection #3. Patient states that she has not experienced any significant pain relief after the initial injections. Currently she denies any signs or symptoms of infection and has no complaint of numbness or tingling in the left lower extremity. Physical examination: Left knee; range of motion is from 0 degrees of extension to 135 degrees of flexion. Patient experiences medial joint line tenderness when the knee is palpated in the flexed position. She has visible valgus malalignment. There is no laxity with varus or valgus stressing. AP drawer sign Primo test are negative. Her patella is not mobile due to arthritic change within the patellofemoral joint. She is neurovascularly intact in the left lower extremity. Impression: Left knee osteoarthritis Procedure: Patient was seated on the edge of the table with the left knee placed in the flexed position. Using the cap of the needle the lateral joint space of the left knee was marked. A timeout wasperformed with the patient and she verbalizes that we will proceed with left knee Euflexxa injection #3. Marked site as cleansed with a Betadine swab, anesthetized with ethyl chloride spray, and wiped clean with alcohol soaked 4 x 4. A 22-gauge needle connected to a prefilled syringe containing Euflexxa was easily passed through the lateral joint space of the left knee and injected free-flowing without meeting resistance. Upon removal of the needle patient had no bleeding. Site was again cleansed with an alcohol soaked 4 x 4, wiped dry with a sterile 4 x 4 and covered with a Band-Aid. JIM Garcia served as a witness for this procedure. Plan: Patient was advised to watch for signs symptoms of infection and if any should occur she was advised to either contact her clinic or go to the emergency department immediately. Patient verbalizes understanding of all information provided during today's visit. She thanks for the care that she received. If she has questions or concerns arise prior to her 3 month follow up, she will contact the clinic. This chart was completed utilizing 3TEN8 voice recognition software. Grammatical errors,random word insertions, pronoun errors, and in complete sentences are an occasional consequence of the system. Any questions or concerns about the content, text, or information contained within the body of this dictation should be addressed directly to the physician for clarification. Electronic Signature on File Electronically Reviewed/Signed by: Pratik Esqueda PA-C Author Signature Dt/Tm:04/14/2024 02:04 PM Division of Sports Medicine Electronically Reviewed/Signed by: Phill Quispe MD Cosigner Signature Dt/Tm: 04/14/2024 02:25 PM Division of Sports Medicine [place] Patient Care team information Care Team Personnel Name: MD Javier, Joshua Rader Position: Referring DIRECT Member Role: Primary Care Provider Address: Address: [facility] [address] [address] Care Team Related Persons Name: MARLON NAVARRO Address: home [address] [place] [address] [place] [phone]
--- OUTSIDE RECORDS SUMMARY | 2024-04-17 16:46 | External Medical Summary | Continuity of Care Document ---
Author Name Unknown Organization [id number] Address [address] [place] [phone] Care Team Providers Care Resolution Manager Name Role Phone Joshua Herrera V Primary Care Ph ysician [phone] [id number] Date[facility] 04/07/[facility] - 04/07/24 [facility] [address] [facility] [address] [place] [id number] Encounter Diagnosis Left knee DJD(Discharge Diagnosis) - 04/07/24 Discharge Disposition: Home or Self Care Attending Physician: DILAN Esqueda Dennis Allergies, Adverse Reactions, Alerts Substance Criticality Severity Reaction Reaction Severity Status sulfa drugs Rash Active Assessment and Plan Extracted from: Title:Clinical Document Author:DILAN Esqueda Denn is Date:04/08/24 OUTPATIENT NOTE Name: PETEY NAVARRO Patient Number:1 [id number] : 1950 Date of Service: 04/07/2024 HPI: This 74-year-old female presents to the clinic today for left knee Euflexxa injection #2. Patient states that she has not experienced any significant pain relief after the initial injection. Currently she denies any signs or symptoms [...] will proceed with left knee Euflexxa injection #2. Marked site as cleansed with a Betadine [...] questions or concerns arise prior to her next injection, she will contact the clinic. This chart was completed utilizing [employer] voice recognition software. Grammatical errors, random word [...] qPM, Disp# 90 tab, Refills: 3, Pharmacy: [id number] Start Date: 12/24/23 Status: [...] use, PRN: as needed for wheezing, Pharmacy: [id number] Start Date: 01/06/19 Status: [...] Start Date: 10/15/10 Status: Ordered Mental Status 04/07/24 Barriers to Learning one year None evide nt Mandatory Health Literacy Documentation Yes Health Literacy Communication Barriers N ever Primary Language Cook Islander Problem List Condition Confirmation Course Effective Dates [...] Confirmed Active Mitral valve replaced Confirmed Active Other polyosteoarthritis Confirmed Active Psoriasis Confirmed Active Other psoriatic arthropathy Confirmed Active Abnormal diffusion capacity determined by pulmonary function test Confirmed Active Sprain of left foot Confirmed Active Wheezing Confirmed Active 1Right Diagnosis Diagnosis Type Effective Dates Health Status Cl inical Service Informant Left knee DJD Discharge Diagnosis 04/07/24 Procedures Procedure Date Related Diagnosis Body Site Status PFT - Pulmonary function tests 02/02/19 Completed Right TKA 05/18/12 Completed Knee meniscus 1 11/13/04 Completed Open heart valvuloplasty of mitral valve without replacement 11/13/94 Comple abiel Appendectomy Completed Hysterectomy Completed 1repair Social History Social History Type Response Smoking Status Never smoked cigaret rachid Sex Female Outpatient Note * DILAN Esqueda, Pratik: PERFORM Event Display: .Outpt Note Authored Date: [id number] OUTPATIENT NOTE Name: PETEY NAVARRO Patient Number:1 [id number] : 1950 Date of Service: 04/07/2024 HPI: This 74-year-old female presents to the clinic today for left knee Euflexxa injection #2. Patient states that she has not experienced any significant pain relief after the initial injection. Currently she denies any signs or symptoms of infection and has no complaint of numbness or tingling inthe left lower extremity. Physical examination: Left knee; [...] will proceed with left knee Euflexxa injection #2. Marked site as cleansed with a Betadine [...] questions or concerns arise prior to her next injection, she will contact the clinic. This chart was completed utilizing [employer] voice recognition software. Grammatical errors,random word insertions, pronoun errors, and in complete sentences are an occasional consequence of the system. Any questions or concerns about the content, text, or information contained within the body of this dictation should be addressed directly to the physician for clarification. Electronic Signature on File Electronically Reviewed/Signed by: Pratik Esqueda PA-C Author Signature Dt/Tm:04/08/2024 01:51 PM Division of Sports Medicine Electronically Reviewed/Signed by: Phill Quispe MD Cosigner Signature Dt/Tm: 04/08/2024 04:35 PM Division of Sports Medicine [place] Patient Care team information Care Team Personnel Name: MD Javier, Joshua Rader Position: Referring DIRECT Member Role: Primary Care Provider Address: Address: [facility] [address] [address] [place] Care Team Related Persons Name: MARLON NAVARRO Address: home [address] [place] [address] [place] [phone]
--- OUTSIDE RECORDS SUMMARY | 2024-04-17 16:47 | External Medical Summary | Continuity of Care Document ---
Author Name Unknown Organization [id number] Address [address] [place] [phone] Care Team Providers Care Extension Service Advisor Name Role Phone Joshua Herrera V Primary Care Ph ysician [phone] [id number] Date(s): 02/15/24 - 02/15/24 [facility] [place] [id number] [address] [place] [id number] Encounter Diagnosis Left knee pain(Discharge Diagnosis) - 02/15/24 Discharge Disposition: Home or Self Care Attending Physician: DILAN Mccauley Jennifer R Allergies, Adverse Reactions, Alerts Substance Reaction Severity Status sulfa drugs Rash Active Assessment and Plan Extracted from: Title:Clinical Document Author:DILAN Mccauley Je nnifer R Date:02/15/24 ORTHOPAEDICS OUTPATIENT NOTE Name: JULIETA NAVARRO Patient Number: [id number] : 1950 Date of Service: 02/15/2024 Chief Complaint: Left knee pain x 12 days, s/p fall HPI: Julieta is here today for evaluation of her left knee. She was last seen by Dr. Quispe for left knee pain in August 2023. Since then she has been doing outpatient physical therapy for her left knee. She states most of her pain was on the outer aspect of the knee and she was really doing well with physical therapy up until she had a fall 12 days ago. She states she tripped and hit her face off of the trash can and broke her nose. She does think that she fell onto her knees at that time but does not exactly recall how she injured her knee at the time of the fall, but it hasn't been "right since". Since then she has had progressively worsening left knee pain that is bothersome and mid ranges of flexion for instance when getting out of a chair or trying to bear all of her weight on that left leg. She is an avid pickleball player and has been able to do that up until this recent injury. She is unable to do any nixq-in-imvf movement with the left knee because it causes sharp pain on the inside aspect of her right knee. She does not note any locking or catching. She does not note any giving way except for when she is in a deep flexion type position or when she goes [id number]-[id number]-chyx she feels like the knee might give out on her. She does not recall any significant swelling of the left knee. She has been able to walk and has been going on her daily hikes without significant discomfort. She does note that it is more uncomfortable and declines versus inclines. She has trouble with going up and down steps especially leading with that left leg. Due to her progression in physical therapy and this recent fall she was referred by her physical therapist to come in and have it evaluated. She states that she has had dull achiness since her fall. She did have a bruise in the front of her knee that has resolved almost completely. Occasionally she gets a sharp discomfort in the knee. The pain is more diffuse than just on the lateral side. She did try wearing her brace with to see if that would help allow her to play pickle ball but she still could not do any fcgf-jj-wybe type movements. OBJECTIVE Vitals: Last Updated 02/15/24 12:47 Date Temp BP Location Pulse RR SpO2 Pain 02/15/24 0 08/17/23 0 08/19/21 3 Height and Weight: Last Updated 02/15/24 12:48 Date BMI Wt(kg) Wt(lb) Method Ht(cm) (ft-in) Method 02/15/24 20.18 59 130 Standing Scale 171 5-7 08/18/19 19.31 57.8 127 Standing Scale 173 5-8 Standing 05/10/19 19.92 56.9 125 Standing Scale 169 5-6 Standing Physical Exam Exam of her left knee: No effusion to the left knee. Mild ecchymosis on the anterior medial side of the distal thigh and to the right vilchis. Extensor mechanism is intact. She has no prepatellar effusion. Nontender the patellar or quadriceps tendon. She has no varus or valgus instability of the left knee. She has some mild lateral joint line tenderness with palpation. Mild medial joint line tenderness with palpation with the knee in deep flexion. She has a negative flexion circumduction test. No varus valgus instability at 0 and 30 degrees. Nontender over the MCL or the LCL. Nontender of the distal IT band. Calf is supple and nontender. No distal edema. Distal neurovascular function is normal. She is able to ambulate in the room today with no assistive device and a normal gait. Negative Primo. Negative anterior and posterior drawer. Mild tenderness over the medial femoral condyle with her knee in about 100 degrees of flexion. Range of motion is 0 to 130 degrees comfortably today. Full range of motion of the left hip and ankle without discomfort. Radiology images: 4 views of the left knee were obtained today and show no evidence of acute bony abnormality such as fracture or dislocation. She does have degenerative changes with in the lateral compartment and osteophyte formation in the tibial spines. No evidence of subacute or acute fracture. These x-rays reviewed by myself and discussed with the patient and will be further reviewed by radiologist. ASSESSMENT: Acute left knee pain, chronic DJD left knee PLAN: We talked about treatment options. She could continue to monitor this she is functioning fairly well although there are certain things that she is unable to do. She is very active and would like to be able to do those without difficulty. I offered her a cortisone injection which she declined. She has had these in the past and has not had good success with those. We talked about ice, anti- inflammatories. She is unable to take NSAIDs due to her being on chronic Coumadin. She has been doing Tylenol which does seem to help. She can continue her knee brace although it has not been helping her play pickle ball. We talked about getting an MRI of her left knee which she is agreeable to doing. This could be helpful and defining bone contusions versus stress fractures versus occult fractures versus cartilaginous or meniscal pathology. She will call once the MRI is completed for results and we can discuss this over the phone. She will continue her outpatient physical therapy. Will leave follow-up for now as needed and once the MRI is obtained and we will obtain results we can determine follow-up at that time. She understands and agrees with the plan is appreciative of my time today. This chart was completed utilizing [employer] voice recognition software. Grammatical errors, random word insertions, pronoun errors, and in complete sentences are an occasional consequence of the system. Any questions or concerns about the content, text, or information contained within the body of this dictation should be addressed directly to the provider for clarification. Immunizations Given and Recorded Vaccine Date Status Refusal Reason influenza virus vaccine, inactivated 08/03/18 Give n Medications celecoxib 200 mg oral capsule Start: 05/07/20 10:34:00 EDT, 1 cap, PO, Daily, PRN: as needed for pain Start Date: 05/07/20 Status: Ordered Flonase Start: 10/15/10 10:43:37, 1 spray, intranasal, Daily, Refills: 0, current medication from another provider Start Date: 10/15/10 Status: Ordered montelukast 10 mg oral tablet Start: 12/24/23 10:56:00 EST, 1 tab, PO, qPM, Disp# 90 tab, Refills: 3, Pharmacy: [id number] Start Date: 12/24/23 Status: Ordered Multiple Vitamins oral capsule Start: 10/15/10 10:41:47, 1 cap, PO, Daily, Refills: 0, current medication from another provider Start Date: 10/15/10 Status: Ordered ProAir HFA 90 mcg/inh inhalation aerosol Start: 01/06/19 15:35:00 EST, 2 puff, inhaled, qid, Disp# 1 each, Refills: 2, PRN wheezing or SOB, Note to Pharmacy: PLease teach use, PRN: as needed for wheezing, Pharmacy: [id number] Start Date: 01/06/19 Status: Ordered Synthroid Start: 10/15/10 10:40:25 EST, 100 mcg =, PO, Daily, Refills: 0, current medication from another provider Start Date: 10/15/10 Status: Ordered tramadol 50 mg oral tablet Start: 07/15/13 14:52:00 EDT, 1 tab, PO, Daily, PRN: as needed for pain Start Date: 07/15/13 Status: Ordered Vitamin D3 1000 intl units oral tablet Start: 03/17/18 15:02:00 EDT, 1 tab, PO, Daily Start Date: 03/17/18 Status: Ordered warfarin Start: 10/15/10 10:38:22 EST, See Instructions, Daily, Refills: 0, 6 mg PO every other day, alternating with 5 mg, current medication from another provider Start Date: 10/15/10 Status: Ordered Mental Status 02/15/24 Barriers to Learning one year None evide [...] Status Cl inical Service Informant Left knee pain Discharge Diagnosis 02/15/24 Procedures Procedure Date Related Diagnosis Body Site Status PFT - Pulmonary function tests 02/02/19 Completed Right TKA 05/18/12 Completed Knee meniscus 1 11/13/04 Completed Open heart valvuloplasty of mitral valve without replacement 11/13/94 Comple abiel Appendectomy Completed Hysterectomy Completed 1repair Vital Signs Most recent to oldest [Reference Range]: 1 Height 171 cm (02/15/24 12:48 PM) Patient Weight 59 kg (02/15/24 12:48 PM) Body Mass Index 20.18 kg/m2 (02/15/24 12:48 PM) Social History Social History Type Response Smoking Status Never smoked cigaret rachid Sex Female Ortho Outpt Note * DILAN Mccauley, Emma R: PERFORM, MODIFY Event Display: Ortho Outpt Note Authored Date: [id number] ORTHOPAEDICS OUTPATIENT NOTE Name: JULIETA NAVARRO Patient Number: [id number] : 1950 Date of Service: 02/15/2024 Chief Complaint: Left knee pain x 12 days, s/p fall HPI: uJlieta is here today for evaluation of her left knee. She was last seen by Dr. Quispe for left knee pain in August 2023. Since then she has been doing outpatient physical therapy for her left knee. She states most of her pain was on the outer aspect of the knee and she was really doing well with physical therapy up until she had a fall 12 days ago. She states she tripped and hit her face off of the trash can and broke her nose. She does think that she fell onto her knees at that time butdoes not exactly recall how she injured her knee at the time of the fall, but it hasn't been "rightsince". Since then she has had progressively worsening left knee pain that is bothersome and mid ranges of flexion for instance when getting out of a chair or trying to bear all of her weight on thatleft leg. She is an avid pickleball player and has been able to do that up until this recent injury. She is unable to do any rjpr-ge-lzfx movement with the left knee because it causes sharp pain on the inside aspect of her right knee. She does not note any locking or catching. She does not note any giving way except for when she is in a deep flexion type position or when she goes mytq-tk-znxi shefeels like the knee might give out on her. She does not recall any significant swelling of the leftknee. She has been able to walk and has been going on her daily hikes without significant discomfort. She does note that it is more uncomfortable and declines versus inclines. She has trouble with going up and down steps especially leading with that left leg. Due to her progression in physical therapy and this recent fall she was referred by her physical therapist to come in and have it evaluated. She states that she has had dull achiness since her fall. She did have a bruise in the front of her knee that has resolved almost completely. Occasionally she gets a sharp discomfort in the knee. The pain is more diffuse than just on the lateral side. She did try wearing her brace with to see if that would help allow her to play pickle ball but she still could not do any vygy-uj-fvgk type movements. OBJECTIVE Vitals: Last Updated 02/15/24 12:47 Date Temp BP Location Pulse RR SpO2 Pain 02/15/24 0 08/17/23 0 08/19/21 3 Height and Weight: Last Updated 02/15/24 12:48 Date BMI Wt(kg) Wt(lb) Method Ht(cm) (ft-in) Method 02/15/24 20.18 59 130 Standing Scale 171 5-7 08/18/19 19.31 57.8 127 Standing Scale 173 5-8 Standing 05/10/19 19.92 56.9 125 Standing Scale 169 5-6 Standing Physical Exam Exam of her left knee: No effusion to the left knee. Mild ecchymosis on the anterior medial side ofthe distal thigh and to the right vilchis. Extensor mechanism is intact. She has no prepatellar effusion. Nontender the patellar or quadriceps tendon. She has no varus or valgus instability of the left knee. She has some mild lateral joint line tenderness with palpation. Mild medial joint line tenderness with palpation with the knee in deep flexion. She has a negative flexion circumduction test. No varus valgus instability at 0 and 30 degrees. Nontender over the MCL or the LCL. Nontender of the distal IT band. Calf is supple and nontender. No distal edema. Distal neurovascular function is normal. She is able to ambulate in the room today with no assistive device and a normal gait. Negative Primo. Negative anterior and posterior drawer. Mild tenderness over the medial femoral condyle with her knee in about 100 degrees of flexion. Range of motion is 0 to 130 degrees comfortably today. Fullrange of motion of the left hip and ankle without discomfort. Radiology images: 4 views of the left knee were obtained today and show no evidence of acute bony abnormality such as fracture or dislocation. She does have degenerative changes with in the lateral compartment and osteophyte formation in the tibial spines. No evidence of subacute or acute fracture.These x-rays reviewed by myself and discussed with the patient and will be further reviewed by radiologist. ASSESSMENT: Acute left knee pain, chronic DJD left knee PLAN: We talked about treatment options. She could continue to monitor this she is functioning fairly well although there are certain things that she is unable to do. She is very active and would like to be able to do those without difficulty. I offered her a cortisone injection which she declined.She has had these in the past and has not had good success with those. We talked about ice, anti-inflammatories. She is unable to take NSAIDs due to her being on chronic Coumadin. She has been doing Tylenol which does seem to help. She can continue her knee brace although it has not been helping her play pickle ball. We talked about getting an MRI of her left knee which she is agreeable to doing.This could be helpful and defining bone contusions versus stress fractures versus occult fractures versus cartilaginous or meniscal pathology. She will call once the MRI is completed for results and we can discuss this over the phone. She will continue her outpatient physical therapy. Will leave follow-up for now as needed and once the MRI is obtained and we will obtain results we can determine follow- up at that time. She understands and agrees with the plan is appreciative of my time today. This chart was completed utilizing [employer] voice recognition software. Grammatical errors,random word insertions, pronoun errors, and in complete sentences are an occasional consequence of the system. Any questions or concerns about the content, text, or information contained within the body of this dictation should be addressed directly to the provider for clarification. Electronic Signature on File Electronically Reviewed/Signed by: Emma Mccaluey PA-C Author Signature Dt/Tm:02/15/2024 04:48PM Division of Sports Medicine Electronically Reviewed/Signed by: Phill Quispe MD Cosigner Signature Dt/Tm: 02/15/2024 05:09 PM Division of Sports Medicine [facility] Patient Care team information Care Team Personnel Name: MD Javier, Joshua Rader Position: Referring DIRECT Member Role: Primary Care Provider Address: Address: [facility] [address] [place] [address] Care Team Related Persons Name: MARLON NAV[facility]O Address: home [address] [facility] [place] [phone]
--- OUTSIDE RECORDS SUMMARY | 2024-04-17 16:47 | External Medical Summary | Continuity of Care Document ---
Author Name Unknown Organization [facility] [id number] Address [address] [place] [phone] Care Team Providers Care Needle Maker Name Role Phone Joshua Herrera V Primary Care Ph ysician [phone] [id number] Date[facility]s): 03/02/24 - 03/02/24 [facility] [address] [address] Encounter Diagnosis Knee DJD(Discharge Diagnosis) - 03/02/24 Discharge Disposition: Home or Self Care Attending Physician: DILAN Mccauley, Emma Lopez Allergies, Adverse Reactions, Alerts Substance Reaction Severity Status sulfa drugs Rash Active Immunizations Given and Recorded Vaccine Date Status [...] qPM, Disp# 90 tab, Refills: 3, Pharmacy: [id number] Start Date: 12/24/23 Status: [...] use, PRN: as needed for wheezing, Pharmacy: [id number] Start Date: 01/06/19 Status: [...] Start Date: 10/15/10 Status: Ordered Mental Status 03/02/24 Barriers to Learning one year None evide nt Mandatory Health Literacy Documentation Yes Health Literacy Communication Barriers N ever Primary Language Panamanian Problem List Condition Confirmation Course Effective Dates [...] Diagnosis Diagnosis Type Effective Dates Health Status Clini jayde Service Informant Knee DJD Discharge Diagnosis 03/02/24 Procedures Procedure Date Related Diagnosis Body Site Status PFT - Pulmonary function tests 02/02/19 Completed Right TKA 05/18/12 Completed Knee meniscus 1 11/13/04 Completed Open heart valvuloplasty of mitral valve without replacement 11/13/94 Comple abiel Appendectomy Completed Hysterectomy Completed 1repair Social History Social History Type Response Smoking Status Never smoked cigaret rachid Sex Female Patient Care team information Care Team Personnel Name: MD Javier, Joshua Rader Position: Referring DIRECT Member Role: Primary Care Provider Address: Address: [address] [place] [address] Care Team Related Persons Name: MARLON NAVARRO Address: home [address] [place] [address] [place] [phone]
--- OUTSIDE RECORDS SUMMARY | 2024-04-17 16:47 | External Medical Summary | Continuity of Care Document ---
Author Name Unknown Organization [id number] Address [address] [place] [id number] Care Team Providers Care Healthcare Applications Analyst Name Role Phone Joshua Herrera V Primary Care Ph ysician [phone] [facility] [id number] Date(s): 03/31/24 - 03/31/24 [facility] [address] [place] [address] Encounter Diagnosis Left knee DJD(Discharge Diagnosis) - 03/31/24 Discharge Disposition: Home or Self Care Attending Physician: DILAN Garrett [place] Allergies, Adverse Reactions, Alerts Substance Criticality Severity Reaction Reaction Severity Status sulfa drugs Rash Active Assessment and Plan Extracted from: Title:Clinical Document Author:DILAN GarrettDaniel Date:03/31/24 OUTPATIENT NOTE Name: PETEY NAVARRO Patient Number:[id number] : 1950 Date of Service: 03/31/2024 CHIEF COMPLAINT: Euflexxa 1 of 3 HISTORY OF PRESENT ILLNESS: Patient is here today for left knee gel injection. She had an MRI done that showed degenerative lateral meniscus tear and significant osteo arthritis specially in the lateral joint compartment. It was recommended that she have hyaluronic acid injections. This is her first time receiving these injections. She had a cortisone injection 03/03 and did not get any results from that. ROS: Denies swelling, erythema, warmth PHYSICAL EXAM: General: Pt is well nourished, seated on the exam table AA&O, in NAD, calm and cooperative during exam Knee Exam: Pt ambulates without assisted device with an antalgic gait Skin is intact with no effusion, erythema, ecchymosis or warmth Motor function grossly in tact Knock-knee deformity noted IMPRESSION/ PLAN: Left knee osteoarthritis, 1 of 3 Euflexxa injection The patient received their gel injection today. They tolerated the procedure well. Pt was encouraged to ice, rest, and use OTC anti-inflammatories as needed for her pain. They were instructed to keep their knee moving today to avoid stiffness. They will follow up in 1 week. All of their questions and concerns were answered today. PROCEDURE: After explaining the risks and benefits of the procedure, verbal consent was obtained and the patient was placed in the seated position. The injection site was confirmed by Marj Brown LPN. After performing a time-out, identifying the left knee as the correct knee for intra-articular gel injection, the anterolateral portal area was palpated and marked. This area was prepped with Betadine, followed by ethyl chloride spray and alcohol wipe. Then, a 2 mL prepackaged syringe of Euflexxa was easily injected. The area was cleaned and dried and a Band-Aid was placed on the top. The patient will follow all my above-noted instructions. Immunizations Given and Recorded Vaccine Date Status [...] qPM, Disp# 90 tab, Refills: 3, Pharmacy: [id number] Start Date: 12/24/23 Status: Ordered Multiple Vitamins [...] use, PRN: as needed for wheezing, Pharmacy: [id number] Start Date: 01/06/19 [...] Start Date: 10/15/10 Status: Ordered Mental Status 03/31/24 Barriers to Learning one year None evide nt Mandatory Health Literacy Documentation Yes Health Literacy Communication Barriers N ever Primary Language Turkmen Problem List Condition Confirmation Course Effective Dates [...] Service Informant Left knee DJD Discharge Diagnosis 03/31/24 Non-Specified Procedures Procedure Date Related Diagnosis Body Site Status PFT - Pulmonary function tests 02/02/19 Completed Right TKA 05/18/12 Completed Knee meniscus 1 11/13/04 Completed Open heart valvuloplasty of mitral valve without replacement 11/13/94 Comple abiel Appendectomy Completed Hysterectomy Completed 1repair Social History Social History Type Response Smoking Status Never smoked cigaret rachid Sex Female Outpatient Note * DILAN Garrett Madison: PERFORM Event Display: .Outpt Note Authored Date: [id number] OUTPATIENT NOTE Name: PETEY NAVARRO Patient Number:[id number] : 1950 Date of Service: 03/31/2024 CHIEF COMPLAINT: Euflexxa 1 of 3 HISTORY OF PRESENT ILLNESS: Patient is here today for left knee gel injection. She had an MRI done that showed degenerative lateral meniscus tear and significant osteo arthritis specially in the lateral joint compartment. It was recommended that she have hyaluronic acid injections. This is her first time receiving these injections. She had a cortisone injection 03/03 and did not get any results from that. ROS: Denies swelling, erythema, warmth PHYSICAL EXAM: General: Pt is well nourished, seated on the exam table AA&O, in NAD, calm and cooperative during exam Knee Exam: Pt ambulates without assisted device with an antalgic gait Skin is intact with no effusion, erythema, ecchymosis or warmth Motor function grossly in tact Knock-knee deformity noted IMPRESSION/ PLAN: Left knee osteoarthritis, 1 of 3 Euflexxa injection The patient received their gel injection today. They tolerated the procedure well. Pt was encouraged to ice, rest, and use OTC anti-inflammatories as needed for her pain. They were instructed to keeptheir knee moving today to avoid stiffness. They will follow up in 1 week. All of their questions and concerns were answered today. PROCEDURE: After explaining the risks and benefits of the procedure, verbal consent was obtained and the patient was placed in the seated position. The injection site was confirmed by Marj Brown LPN. After performing a time-out, identifying the left knee as the correct knee for intra-articulargel injection, the anterolateral portal area was palpated and marked. This area was prepped with Betadine, followed by ethyl chloride spray and alcohol wipe. Then, a 2 mL prepackaged syringe of Euflexxa was easily injected. The area was cleaned and dried and a Band-Aid was placed on the top. The patient will follow all my above-noted instructions. Electronic Signature on File Electronically Reviewed/Signed by: Shayy Garrett PA-C Author Signature Dt/Tm:03/31/2024 09:45 AM Physician [facility], Dept. of Orthopaedics and Sports Medicine [address], [address] [place], [place] [id number] Electronically Reviewed/Signed by: Phill Quispe MD Cosigner Signature Dt/Tm: 03/31/2024 02:24 PM Division of Sports Medicine [facility] Patient Care team information Care Team Personnel Name: MD Javier, Joshua Rader Position: Referring DIRECT Member Role: Primary Care Provider Address: Address: [address] [place] [phone] [place] Care Team Related Persons Name: MARLON NAVARRO Address: home [address] [facility] [address] [phone]
--- NOTE | 2024-04-17 17:13 | Emergency Department Note ---
Impression & Plan Sepsis, Tachycardia, Flu-like symptoms, Pneumonia ED Provider Note NAME: EPTEY NAVARRO AGE: 74 SEX: F : 1950 ARRIVES VIA: Walk-In INFORMANT: [Patient] ED PROVIDER(S): [Serafin Brandt MD] CHIEF COMPLAINT: Tachycardia, fever HISTORY OF PRESENT ILLNESS: The patient is a 74-year-old female with a prior history of Siegel's lung as well as previous pneumonia. She states that she has had 3 days of symptoms. She has a headache, some soreness to her neck, some chills, fever and she developed a cough. The cough has been present for 2 days. She has felt mildly short of breath. She has not had vomiting or diarrhea, she has not really had a sore throat. She has not had sick contacts. The patient went to [facility]. Her COVID and flu were negative, her strep test was negative. She was felt to have a right-sided pneumonia on a chest x-ray. She was referred to the ER. PMHx/PSHx/Social Hx: See Below PHYSICAL EXAM: GENERAL: Patient is in no acute distress. HEENT: No acute trauma, normocephalic atraumatic, mucous membranes moist, no nasal congestion. NECK: No stridor, no adenopathy, no meningismus, trachea is midline. LUNGS: Diminished breath sounds with some scattered wheezes. The breath sounds are quite diminished on the right. No respiratory distress. HEART: Tachycardic with a regular rhythm, subtle systolic murmur. ABDOMEN: Soft, nontender, no peritonitis. EXTREMITIES: No cyanosis, full range of motion of all the joints without pain or difficulty. NEUROLOGIC: Oriented x 3, no acute motor or sensory deficits, no focal weakness. SKIN: No jaundice, no diaphoresis. DIFFERENTIAL DIAGNOSIS: Bacteremia or sepsis, pneumonia, viral illness, CHF, dehydration, anemia, among others. EMERGENCY DEPARTMENT PROCEDURES: MEDICAL DECISION MAKING: There is no leukocytosis or concerning anemia. There is a normal platelet count. INR is elevated at 1.8, consistent with her Coumadin use. No renal failure or significant electrolyte abnormality. Lactic acid level was somewhat elevated, this could be consistent with dehydration or infection. There were some subtle liver enzyme elevations, the bilirubin was normal. ECG showed a tachycardia, the interpretation of the rhythm was difficult and consistent with potential sinus tachycardia versus an atrial flutter. Cardiac enzyme testing x 1 was not consistent with acute cardiac injury. Respiratory bio fire was negative. Chest film shows a right lower lung pneumonia. The patient presents tachycardic and febrile. She presented with flulike symptoms. She was found to have pneumonia. Technically, she does meet sepsis criteria. Patient was aggressively managed. She was given IV saline, 2 L. The 2 L of saline would meet the standards for 30 cc/kg. She received IV cefepime as empiric antibiotic coverage. She was given oral Tylenol. She was given a DuoNeb. The patient needs hospitalization. I did speak with the patient about her findings, I did speak with case management, the on-call hospitalist was consulted. Of note, the patient's lactic acidosis has cleared with hydration therapy. Prior/Outside records/notes reviewed: Today's [facility] notes describing her presentation, workup at their facility and the need for referral to the ER. ECG per my interpretation: Indication was tachycardia. The ECG shows a potential sinus tachycardia versus atrial flutter. A PVC was seen. The rate was 127. There was no acute ST elevation. QTc was 459. Continuous Cardiac Monitoring per my interpretation: An order was placed for continuous cardiac monitoring. The monitor shows a rate of 121 with presumed atrial flutter. Imaging/x-ray results per my interpretation: Chest x-ray shows a right lower lung pneumonia, no pneumothorax. Chronic Medical/Social conditions affecting care: Advanced age. Care/Management discussed with: Case management, the on-call hospitalist. Level of care consideration(s): After review of the information above and other included data: --I believe the patient requires escalation of care to admission Critical Care Note: I have personally spent 51 minutes of critical care time in the direct management of this patient. This includes bedside care, interpretation of diagnostic studies, and testing, discussion with consultants, patient, and family members, and other required patient management activities. This 51 minutes is in excess of all separately billable procedures. DISPOSITION: Admission Past Med/Surg History Problem List Pneumonia (Acute) Flu-like symptoms (Acute) Tachycardia (Acute) Sepsis (Acute) Community acquired pneumonia Traumatic ecchymosis of face Arthritis HX: breast cancer RT BREAST (SURGERY ONLY) DCIS Dense breast tissue Interstitial lung disease X-ray of lung, abnormal Vitamin B12 deficiency Tubular adenoma of colon Abnormal celiac antibody panel Elevated anti-tissue transglutaminase (tTG) IgA level IBS (irritable bowel syndrome) Change in bowel habits Family history of colon cancer History of colon polyps S/P mitral valve replacement (Chronic) 2/2 Severe MR. Mechanical mitral valve replacement (). On AC with warfarin. Followed by cardiology. Hypersensitivity pneumonitis (Chronic) Recurrent episodes of prolonged flu like illness x2. Seen by pulm. BAL performed (2018) with neutrophilic and lymphocytic alveolitis. Currently on prednisone taper Hypothyroidism (Chronic) Maintained on levoythyroxine and has remained stable Osteopenia (Chronic) DEXA (02/25) demonstrating lowest T-score -1.3 right femur neck. Currently treated with Vit D supplementation. Generalized osteoarthritis (Chronic) S/p R total knee replacement. Pain associated with the hands. Primarily taking tramadol for pain. Avoidance of NSAIDs given on AC with warfarin. Has also received corticosteroid injections in the past via ortho. Working on tapering tramadol Dupuytrens contracture (Acute) Health care maintenance Patent foramen ovale Palpitations Chronic anticoagulation Frequent loose stools Medical History Dehydration Encounter for pre-operative examination [place]' lung DX 3 YEARS AGO (READON FOR BRONCHOSCOPY) CLEARED AFTER TREATMENT Jaw clicking NO LOCKING History of restless legs syndrome RESOLVED Seasonal allergies Bowel habit changes Colon cancer screening Bronchitis History of DIC syndrome POST MVR SURGERY OVER 25 YEARS AGO Osteoarthritis IBS (irritable bowel syndrome) Hypothyroidism Asthma HAS NOT USED INHALER FOR A WHILE Surgical History H/O: hysterectomy H/O heart bypass surgery Family history of reaction to anesthesia History of bronchoscopy History of partial hysterectomy History of carpal tunnel release History of tooth extraction History of cardiac cath History of dilation and curettage S/P mitral valve replacement History of cataract surgery History of lumpectomy of right breast History of colonoscopy History of appendectomy History of arthroscopy History of total knee replacement History of heart valve replacement Family History Mother Family hx of colon cancer Osteoarthritis Colorectal cancer Cancer Brother Prostate cancer Son Family history of diabetes mellitus Diabetes Sister Breast cancer Father Cancer Denies family history of Ovarian cancer Myocardial infarction Stroke Social History Smoking Status: Never smoker Second Hand Exposure: No; Do You Dip or Chew Tobacco: No; Hx Alcohol Use: Yes (1 glass of wine a day) Alcohol type: wine Alcohol Intake Frequency: 2-3 x/Week Hx Substance Use: No Preferred Language: Indonesian Communication Ability: Effective Visual Impairment: No Limitations Hearing Ability: Normal Estimator Binding Required: No Beliefs That Will Affect Care: None marital status: Current Living Situation: Spouse current occupational status: employed and retired 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 Feels Safe at Home: Yes Childhood Exposure to Second-Hand Smoke: Yes (Mother) Diet: gluten free Diet Comment: dairy free during the past year weight has: remained stable Dental Care, Regularly: Yes Physical Activity Frequency: Daily Seatbelt Use: always Sunscreen Use: Yes Assistive Devices: Glasses Allergies Allergies Allergy/AdvReac Type Severity Reaction Status Date / Time Sulfa (Sulfonamide Allergy Mild RASH Verified 04/17/24 18:27 Antibiotics) Home Meds Home Medications Medication Instructions Recorded Confirmed multivitamin 1 tab PO QAM 08/20/18 04/17/24 acetaminophen 650 mg 650 mg PO Q12H PRN Pain 12/18/19 04/17/24 tablet,extended release (Tylenol Arthritis Pain) cholecalciferol (vitamin D3) 50 2,000 unit PO QAM 12/18/19 04/17/24 mcg (2,000 unit) tablet (Vitamin D3) triamcinolone acetonide 0.1 % 1 applic topical BID PRN Rash 09/17/20 04/17/24 topical cream montelukast 10 mg tablet 10 mg PO QPM 02/15/21 04/17/24 (Singulair) amoxicillin 500 mg capsule 2,000 mg PO DIRECTED PRN PRIOR 04/17/24 04/17/24 TO DENTAL PROCEDURES cyanocobalamin (vitamin B-12) 500 500 mcg PO DAILY 04/17/24 04/17/24 mcg tablet (Vitamin B-12) tramadol 50 mg tablet 50 mg PO QPM pain 04/17/24 04/17/24 warfarin 5 mg tablet 5 mg PO QPM 04/17/24 04/17/24 Previous Rx's Medication Instructions Recorded levothyroxine 100 mcg tablet 100 mcg PO QAM #90 tabs 05/04/23 fluticasone propionate 50 1 spray intranasal QAM #9.9 mL 04/01/24 mcg/actuation nasal spray,suspension (Flonase Allergy Relief) Results & Data (ED) Vital Signs Vital Signs - 24 hr 04/17/24 16:44 04/17/24 17:04 04/17/24 17:06 Temperature 37.8 C H Temperature Source Skin Pulse Rate 131 H 127 H 125 H Pulse Rate from SpO2 Sensor 127 H Respiratory Rate 19 21 Respiratory Effort / Characteristics Non-Labored Spontaneous Respiratory Depth Normal Blood Pressure 132/75 Blood Pressure Mean 94 Pulse Oximetry 92 94 Oxygen Delivery Method Room Air Sepsis Recent Fever Within 48 Hours No Sepsis New/Unexplained Change in Mental Status No Sepsis Action Taken by Nursing No Action Required 04/17/24 17:33 04/17/24 18:06 04/17/24 18:36 Temperature Temperature Source Pulse Rate 122 H 127 H Pulse Rate from SpO2 Sensor 121 H 123 H Respiratory Rate 24 24 Respiratory Effort / Characteristics Respiratory Depth Blood Pressure 122/68 Blood Pressure Mean 86 Pulse Oximetry 94 89 L Oxygen Delivery Method Sepsis Recent Fever Within 48 Hours Sepsis New/Unexplained Change in Mental Status Sepsis Action Taken by Nursing 04/17/24 18:42 Temperature Temperature Source Pulse Rate 122 H Pulse Rate from SpO2 Sensor 123 H Respiratory Rate 19 Respiratory Effort / Characteristics Respiratory Depth Blood Pressure Blood Pressure Mean Pulse Oximetry 96 Oxygen Delivery Method Sepsis Recent Fever Within 48 Hours Sepsis New/Unexplained Change in Mental Status Sepsis Action Taken by Long Term Medications Current Medication List: was personally reviewed by me Laboratory Data Attestation: I reviewed the patient's lab results. 04/17/24 17:00 04/17/24 17:00 Lab Results 04/17/24 04/17/24 04/17/24 Range/Units 17:00 17:17 18:15 WBC 7.23 (4.8-10.8) K/ul RBC 4.36 (4.20-5.40) M/uL Hgb 14.1 (12.0-16.0) g/dl Hct 42.3 (37.0-47.0) % MCV 97.0 (80.0-100.0) fL MCH 32.3 (25.0-34.0) pg MCHC 33.3 (32.0-36.0) g/dL RDW Std Deviation 52.5 H (36.4-46.3) fL RDW Coeff of Aracelis 14.6 H (11.5-14.5) % Plt Count 183 (130-400) K/uL MPV 10.5 (9.4-12.4) fL Immature Gran % (Auto) 0.4 % Neut % (Auto) 89.2 % Lymph % (Auto) 4.7 % Taylor % (Auto) 5.0 % Eos % (Auto) 0.1 % Baso % (Auto) 0.6 % Neut # (Auto) 6.45 (1.40-6.50) K/uL Lymph # (Auto) 0.34 L (1.20-3.40) K/uL Taylor # (Auto) 0.36 (0.11-0.59) K/uL Eos # (Auto) 0.01 (0.00-0.50) K/uL Baso # (Auto) 0.04 (0.00-0.20) K/uL Immature Gran # (Auto) 0.03 (0.01-0.20) K/uL PT 18.6 H (9.0-12.0) Seconds INR 1.8 H (0.9-1.1) APTT 36 H (21-31) Seconds PTT Ratio 1.3 Sodium 135 L (136-145) mmol/L Potassium 3.6 (3.5-5.1) mmol/L Chloride 99 (98-107) mmol/L Carbon Dioxide 27 (21-32) mmol/L Anion Gap 9 (3-11) BUN 9 (6-23) mg/dl Creatinine 0.65 (0.6-1.2) mg/dl Est Cr Clr Drug Dosing 73.1 ml/min Est GFR ( Amer) 102.1 ml/min Est GFR (Non-Af Amer) 88.1 ml/min BUN/Creatinine Ratio 13.8 (10-20) Glucose 114 H (70-99(Fasting)) mg/dl Lactate 2.2 H* (0.4-2.0) mmol/L Calcium 9.4 (8.6-10.3) mg/dl Magnesium 1.8 (1.7-2.4) mg/dl Total Bilirubin 1.0 (0.2-1.0) mg/dl Direct Bilirubin 0.1 (0-0.2) mg/dl AST 53 H (13-39) U/L ALT 26 (7-52) U/L Alkaline Phosphatase 112 H (34-104) U/L Troponin I High Sens 9.4 (0-14) pg/ml Total Protein 7.4 (6.0-8.3) gm/dl Albumin 4.3 (3.4-5.0) gm/dl Procalcitonin 0.16 (0-0.5) ng/ml Adenovirus (PCR) Not Detected (NotDetected) B. pertussis DNA (PCR) Not Detected (NotDetected) B.parapertussis DNA PCR Not Detected (NotDetected) C. pneumoniae DNA (PCR) Not Detected (NotDetected) Coronavirus OC43 (PCR) Not Detected (NotDetected) Coronavirus HKU1 (PCR) Not Detected (NotDetected) Coronavirus 229E (PCR) Not Detected (NotDetected) SARS-CoV-2 (PCR) Not Detected (NotDetected) Coronavirus NL63 (PCR) Not Detected (NotDetected) Human Metapneumovir PCR Not Detected (NotDetected) Influenza Type A (PCR) Not Detected (NotDetected) Influenza Type B (PCR) Not Detected (NotDetected) M. pneumoniae (PCR) Not Detected (NotDetected) Parainfluenza 1 (PCR) Not Detected (NotDetected) Parainfluenza 2 (PCR) Not Detected (NotDetected) Parainfluenza 3 (PCR) Not Detected (NotDetected) Parainfluenza 4 (PCR) Not Detected (NotDetected) RSV (PCR) Not Detected (NotDetected) Entero/Rhino (PCR) Not Detected (NotDetected) 04/17/24 Range/Units 18:55 WBC (4.8-10.8) K/ul RBC (4.20-5.40) M/uL Hgb (12.0-16.0) g/dl Hct (37.0-47.0) % MCV (80.0-100.0) fL MCH (25.0-34.0) pg MCHC (32.0-36.0) g/dL RDW Std Deviation (36.4-46.3) fL RDW Coeff of Aracelis (11.5-14.5) % Plt Count (130-400) K/uL MPV (9.4-12.4) fL Immature Gran % (Auto) % Neut % (Auto) % Lymph % (Auto) % Taylor % (Auto) % Eos % (Auto) % Baso % (Auto) % Neut # (Auto) (1.40-6.50) K/uL Lymph # (Auto) (1.20-3.40) K/uL Taylor # (Auto) (0.11-0.59) K/uL Eos # (Auto) (0.00-0.50) K/uL Baso # (Auto) (0.00-0.20) K/uL Immature Gran # (Auto) (0.01-0.20) K/uL PT (9.0-12.0) Seconds INR (0.9-1.1) APTT (21-31) Seconds PTT Ratio Sodium (136-145) mmol/L Potassium (3.5-5.1) mmol/L Chloride (98-107) mmol/L Carbon Dioxide (21-32) mmol/L Anion Gap (3-11) BUN (6-23) mg/dl Creatinine (0.6-1.2) mg/dl Est Cr Clr Drug Dosing ml/min Est GFR ( Amer) ml/min Est GFR (Non-Af Amer) ml/min BUN/Creatinine Ratio (10-20) Glucose (70-99(Fasting)) mg/dl Lactate 1.3 (0.4-2.0) mmol/L Calcium (8.6-10.3) mg/dl Magnesium (1.7-2.4) mg/dl Total Bilirubin (0.2-1.0) mg/dl Direct Bilirubin (0-0.2) mg/dl AST (13-39) U/L ALT (7-52) U/L Alkaline Phosphatase (34-104) U/L Troponin I High Sens (0-14) pg/ml Total Protein (6.0-8.3) gm/dl Albumin (3.4-5.0) gm/dl Procalcitonin (0-0.5) ng/ml Adenovirus (PCR) (NotDetected) B. pertussis DNA (PCR) (NotDetected) B.parapertussis DNA PCR (NotDetected) C. pneumoniae DNA (PCR) (NotDetected) Coronavirus OC43 (PCR) (NotDetected) Coronavirus HKU1 (PCR) (NotDetected) Coronavirus 229E (PCR) (NotDetected) SARS-CoV-2 (PCR) (NotDetected) Coronavirus NL63 (PCR) (NotDetected) Human Metapneumovir PCR (NotDetected) Influenza Type A (PCR) (NotDetected) Influenza Type B (PCR) (NotDetected) M. pneumoniae (PCR) (NotDetected) Parainfluenza 1 (PCR) (NotDetected) Parainfluenza 2 (PCR) (NotDetected) Parainfluenza 3 (PCR) (NotDetected) Parainfluenza 4 (PCR) (NotDetected) RSV (PCR) (NotDetected) Entero/Rhino (PCR) (NotDetected) Administered Medications Discontinued Medications Acetaminophen (Acetaminophen 500 Mg Tab) 1,000 mg PO NOW STA Stop: 04/17/24 17:07 Last Admin: 04/17/24 17:22 Dose: 1,000 mg Documented By: VASQUEZ Albuterol (Albut/Ipratrop 3mg/0.5mg Neb 3 Ml Vial) 3 ml NEB NOW STA; Protocol Stop: 04/17/24 17:07 Last Admin: 04/17/24 17:22 Dose: 3 ml Documented By: VASQUEZ Sodium Chloride (Nss) 1,000 mls @ 999 mls/hr IV .Q1H1M MARISOL Stop: 04/17/24 18:00 Last Infusion: 04/17/24 18:45 Dose: Infused Documented By: Admin: 04/17/24 17:22 Dose: 999 mls/hr Documented By: VASQUEZ Cefepime HCl (Maxipime) 2,000 mg in 20 mls @ 5 mls/min IV NOW STA; Protocol Stop: 04/17/24 16:57 Last Admin: 04/17/24 17:22 Dose: 5 mls/min Documented By: VASQUEZ Sodium Chloride (Nss) 1,000 mls @ 999 mls/hr IV .Q1H1M ONE Stop: 04/17/24 18:38 Last Admin: 04/17/24 18:16 Dose: 999 mls/hr Documented By: VASQUEZ Tramadol HCl (Tramadol Hcl 50 Mg Tablet) 50 mg PO NOW STA Stop: 04/17/24 18:25 Last Admin: 04/17/24 18:36 Dose: 50 mg Documented By: VASQUEZ Imaging Data Radiologist's Impression: Chest X-Ray 04/17/24 16:55 SINGLE VIEW CHEST CLINICAL HISTORY: Sepsis. FINDINGS: 2 AP, portable, upright chest radiographs are compared to chest x-ray and chest CT dated 05/29/2023. The patient is status post midline sternotomy. The heart is enlarged noting atherosclerotic calcification of the thoracic aorta. The pulmonary vasculature is noncongested. Chronic interstitial thickening is similar to previous. There is airspace consolidation at the right lung base and a small right pleural effusion. No pneumothorax is seen. The skeletal structures are osteopenic. The bony thorax is grossly intact. IMPRESSION: 1. There is airspace consolidation at the right lung base with a small right pleural effusion. The appearance is typical for pneumonia/aspiration pneumonitis. Clinical correlation will be required and radiographic follow-up to resolution is recommended. 2. Cardiomegaly without radiographic evidence of congestive failure. ACT 112: Negative or not required by law. Electronically signed by: Serafin Nava M.D. 04/17/2024 7:50 PM Discharge Plan Visit Data Chief Complaint: Tachycardia Stated Complaint: TACHYCARDIA, ABN LABS, DOC REF ED Provider: Serafin Brandt Discharge Problem: Sepsis, Tachycardia, Flu-like symptoms, Pneumonia Patient Disposition: Admitted As Inpatient Condition: Fair Forms Stand Alone Forms: My [facility] Prescriptions Prescriptions: No Action levothyroxine 100 mcg tablet 100 mcg PO QAM Qty: 90 3RF fluticasone propionate [Flonase Allergy Relief] 50 mcg/actuation spray,suspension 1 spray INTRANASAL QAM Qty: 9.9 3RF montelukast [Singulair] 10 mg tablet 10 mg PO QPM triamcinolone acetonide 0.1 % cream 1 applic TOP BID PRN (Reason: Rash) Rx Instructions: Apply to areas of the trunk twice daily x 2 weeks as needed for flaring. multivitamin Tablet 1 tab PO QAM acetaminophen [Tylenol Arthritis Pain] 650 mg Tablet Extended Release 650 mg PO Q12H PRN (Reason: Pain) cholecalciferol (vitamin D3) [Vitamin D3] 2,000 unit Tablet 2,000 unit PO QAM cyanocobalamin (vitamin B-12) [Vitamin B-12] 500 mcg Tablet 500 mcg PO DAILY amoxicillin 500 mg capsule 2,000 mg PO DIRECTED PRN (Reason: PRIOR TO DENTAL PROCEDURES) tramadol 50 mg tablet 50 mg PO QPM Rx Instructions: PER PT "TAKES EVERY DAY AT 1400". Ongoing therapy warfarin 5 mg tablet 5 mg PO QPM Protocol: Dose Management Condition: Thursday Dose/Route: 5 mg Instruction: 1 x 5 mg tablet Condition: Thursday Dose/Route: 5 mg Instruction: 1 x 5 mg tablet Condition: Thursday Dose/Route: 5 mg Instruction: 1 x 5 mg tablet Condition: Thursday Dose/Route: 5 mg Instruction: 1 x 5 mg tablet Condition: Dose/Route: 5 mg Instruction: 1 x 5 mg tablet Condition: Thursday Dose/Route: 5 mg Instruction: 1 x 5 mg tablet Condition: Thursday Dose/Route: 5 mg Instruction: 1 x 5 mg tablet Protocol Text: Adjustment Start Date: Thursday04/15/24 INR Value: 4.0 INR Date: 04/14/24 Recheck Date: 04/22/24 Additional Instructions: Patient aware to hold warfarin on 04/14/24 then resume 5 mg daily Rx Instructions: RECENT CHANGE TO 5 MG QPM, UNTIL NEXT INR SCHEDULED. Referrals Referrals: Joshua Stahl MD [Primary Care Provider] - Discharge Problem: Sepsis Qualifiers: Sepsis type: sepsis due to unspecified organism Sepsis acute organ dysfunction status: unspecified Qualified Code(s): A41.9 - Sepsis, unspecified organism Pneumonia Qualifiers: Pneumonia type: due to unspecified organism Laterality: right Lung location: l ower lobe of lung Qualified Code(s): J18.9 - Pneumonia, unspecified organism
[2024-04-17] MEDS: ALBUT/IPRATROP 3MG/0.5MG NEB 3 ML VIAL NEB STA (17:22)
[2024-04-17] MEDS: CEFEPIME 2,000 MG/20 ML VIAL IV STA (17:22)
[2024-04-17] MEDS: ACETAMINOPHEN 500 MG TAB PO STA (17:22)
[2024-04-17] MEDS: SODIUM CHLORIDE 0.9% 1,000 ML IV SCH (17:22)
[2024-04-17 17:23] LABS: Basophils # (auto) 0.04 K/uL (0.00-0.20); Basophils % (auto) 0.6 %; Eosinophils # (auto) 0.01 K/uL (0.00-0.50); Eosinophils % (auto) 0.1 %; Hematocrit (blood only) 42.3 % (37.0-47.0); Hemoglobin 14.1 g/dl (12.0-16.0); Immature Granulocytes # (auto) 0.03 K/uL (0.01-0.20); Immature Granulocytes % (auto) 0.4 %; Lymphocytes # (auto) 0.34 K/uL (1.20-3.40); Lymphocytes % (auto) 4.7 %; Mean Corpuscular Hemoglobin 32.3 pg (25.0-34.0); Mean Corpuscular Hgb Conc 33.3 g/dL (32.0-36.0); Mean Platelet Volume 10.5 fL (9.4-12.4); Monocytes # (auto) 0.36 K/uL (0.11-0.59); Neutrophils # (auto) 6.45 K/uL (1.40-6.50); Neutrophils % (auto) 89.2 %; Platelet Count 183 K/uL (130-400); RDW Coefficient of Variation 14.6 % (11.5-14.5); RDW Standard Deviation 52.5 fL (36.4-46.3); Red Blood Count 4.36 M/uL (4.20-5.40); White Blood Count 7.23 K/ul (4.8-10.8)
[2024-04-17 17:47] LABS: Albumin Level 4.3 gm/dl (3.4-5.0); BUN Creatinine Ratio 13.8 (10-20); Bilirubin Direct 0.1 mg/dl (0-0.2); Calcium 9.4 mg/dl (8.6-10.3); Creatinine Clr Calc Pharmacy 73.1 ml/min; Est GFR (African American) 102.1 ml/min; Est GFR (Non-African American) 88.1 ml/min; Magnesium 1.8 mg/dl (1.7-2.4); Potassium 3.6 mmol/L (3.5-5.1); Total Protein 7.4 gm/dl (6.0-8.3)
[2024-04-17 17:50] LABS: INR 1.8 (0.9-1.1); Partial Thromboplastin Ratio 1.3; Partial Thromboplastin Time 36 Seconds (21-31); Prothrombin Time 18.6 Seconds (9.0-12.0)
[2024-04-17 17:53] LABS: Troponin I High Sensitivity 9.4 pg/ml (0-14)
[2024-04-17] MEDS: SODIUM CHLORIDE 0.9% 1,000 ML IV ONE (18:16)
[2024-04-17] MEDS: traMADol HCL 50 MG TABLET PO STA (18:36)
--- NOTE | 2024-04-17 18:51 | History & Physical Report ---
Date of Service April 17, 2024 Assessment & Plan (1) Community acquired pneumonia: Plan: Sepsis 2/2 PNA - Febrile, No leukocytosis, +RLL PNA, +sinus tachycardia, borderline hypoxic and desats easily - Lactate elevated, cleared on repeat. Patient clinically improving and with greatly improved appearance on reassessment post fluids - Biofire pending -Has received her sepsis 30 cc/kg recommendations of 1800 cc, received 2 L NSS in the ER Continue cefepime MRSA nare pending Blood cultures pending Sputum culture ordered No prior culture history available Suspect viral URI which has progressed to secondary superimposed pneumonia. Pulmonary history History of Siegel's lung/hypersensitivity pneumonitis which was treated at [facility], prednisone was tapered as outpatient. 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, no evidence of major immunosuppressive abnormality If patient is not progressing as expected, repeat IgG levels (2) Hypothyroidism: Plan: Hypothyroidism Continue Synthroid (3) S/P mitral valve replacement: Plan: S/p mitral valve replacement, history of palpitations Last echo with EF 55 to 60%, diastolic dysfunction, mechanical mitral valve with a well-seated prosthesis Continue warfarin, goal INR 2.53.5 Slightly subtherapeutic on admission 1.8. Patient is not taking her warfarin tonight, 7.5 mg x 1 Plan DVT prophylaxis: Anticoagulated Diet: Regular Disposition: Medical telemetry given tachycardia and poor clinical appearance CODE STATUS: Full code History of Present Illness Primary Care Provider: Joshua Stahl MD Julieta Malik is a 74-year-old female with past medical history of breast cancer, farmers lung, pneumonia who was found to have a right-sided pneumonia on chest x-ray at [facility] and was referred to the ER for further care. She has had 3 days of fever, chills, cough. She reports last day she started feeling tired, and then the next day had body aches all over. yesterday and today was with cough, fever 102, and shortness of breath. No recent steroids No chest pain or chest pressure No nause vomiting diarrhea Immunoglobinulin levels were checked years ago, pt reports she has been OK and has not needed any followup Took medications this AM. Takes coumadin in the evening, has not taken this yet today. Synthroid, vitamins, tramdol. [place]ast in evenings. Goal coumadin range is '2.5-3.5, but the lower end of 2.5' Medical History: Reviewed Medications: Reviewed Surgical History: Reviewed Family history: Reviewed Allergies: Reviewed. Rash to sulfa. Social History: No tobacco use, rare social etoh use Code Status: Full Allergies Allergy/AdvReac Type Severity Reaction Status Date / Time Sulfa (Sulfonamide Allergy Mild RASH Verified 04/17/24 18:27 Antibiotics) Home Medications Medication Instructions Recorded Confirmed Type multivitamin 1 tab PO QAM 08/20/18 04/17/24 History acetaminophen 650 mg 650 mg PO Q12H PRN Pain 12/18/19 04/17/24 History tablet,extended release (Tylenol Arthritis Pain) cholecalciferol (vitamin D3) 50 2,000 unit PO QAM 12/18/19 04/17/24 History mcg (2,000 unit) tablet (Vitamin D3) triamcinolone acetonide 0.1 % 1 applic topical BID PRN Rash 09/17/20 04/17/24 History topical cream montelukast 10 mg tablet 10 mg PO QPM 02/15/21 04/17/24 History (Singulair) levothyroxine 100 mcg tablet 100 mcg PO QAM #90 tabs 05/04/23 04/17/24 Rx fluticasone propionate 50 1 spray intranasal QAM #9.9 mL 04/01/24 04/17/24 Rx mcg/actuation nasal spray,suspension (Flonase Allergy Relief) amoxicillin 500 mg capsule 2,000 mg PO DIRECTED PRN PRIOR 04/17/24 04/17/24 History TO DENTAL PROCEDURES cyanocobalamin (vitamin B-12) 500 500 mcg PO DAILY 04/17/24 04/17/24 History mcg tablet (Vitamin B-12) tramadol 50 mg tablet 50 mg PO QPM pain 04/17/24 04/17/24 History warfarin 5 mg tablet 5 mg PO QPM 04/17/24 04/17/24 History Past Med/Surg History Problem List (Updated 04/17/24 @ 18:46 by Phill Peters MD) Community acquired pneumonia Traumatic ecchymosis of face Arthritis HX: breast cancer RT BREAST (SURGERY ONLY) DCIS Dense breast tissue Interstitial lung disease X-ray of lung, abnormal Vitamin B12 deficiency Tubular adenoma of colon Abnormal celiac antibody panel Elevated anti-tissue transglutaminase (tTG) IgA level IBS (irritable bowel syndrome) Change in bowel habits Family history of colon cancer History of colon polyps S/P mitral valve replacement (Chronic) 2/2 Severe MR. Mechanical mitral valve replacement (). On AC with warfarin. Followed by cardiology. Hypersensitivity pneumonitis (Chronic) Recurrent episodes of prolonged flu like illness x2. Seen by pulm. DANK velazquez (2018) with neutrophilic and lymphocytic alveolitis. Currently on prednisone taper Hypothyroidism (Chronic) Maintained on levoythyroxine and has remained stable Osteopenia (Chronic) DEXA (02/25) demonstrating lowest T-score -1.3 right femur neck. Currently treated with Vit D supplementation. Generalized osteoarthritis (Chronic) S/p R total knee replacement. Pain associated with the hands. Primarily taking tramadol for pain. Avoidance of NSAIDs given on AC with warfarin. Has also received corticosteroid injections in the past via ortho. Working on tapering tramadol Dupuytrens contracture (Acute) Health care maintenance Patent foramen ovale Palpitations Chronic anticoagulation Frequent loose stools Medical History (Updated 04/17/24 @ 18:46 by Phill Peters MD) Dehydration Encounter for pre-operative examination [place]' lung DX 3 YEARS AGO (READON FOR BRONCHOSCOPY) CLEARED AFTER TREATMENT Jaw clicking NO LOCKING History of restless legs syndrome RESOLVED Seasonal allergies Bowel habit changes Colon cancer screening Bronchitis History of DIC syndrome POST MVR SURGERY OVER 25 YEARS AGO Osteoarthritis IBS (irritable bowel syndrome) Hypothyroidism Asthma HAS NOT USED INHALER FOR A WHILE Surgical History H/O: hysterectomy H/O heart bypass surgery Family history of reaction to anesthesia History of bronchoscopy History of partial hysterectomy History of carpal tunnel release History of tooth extraction History of cardiac cath History of dilation and curettage S/P mitral valve replacement History of cataract surgery History of lumpectomy of right breast History of colonoscopy History of appendectomy History of arthroscopy History of total knee replacement History of heart valve replacement Family History Mother Family hx of colon cancer Osteoarthritis Colorectal cancer Cancer Brother Prostate cancer Son Family history of diabetes mellitus Diabetes Sister Breast cancer Father Cancer Denies family history of Ovarian cancer Myocardial infarction Stroke Social History (Reviewed 03/27/24 @ 10:56 by HARRY Gorman Smoking Status: Never smoker Second Hand Exposure: No; Do You Dip or Chew Tobacco: No; Hx Alcohol Use: Yes (1 glass of wine a day) Alcohol type: wine Alcohol Intake Frequency: 2-3 x/Week Hx Substance Use: No Preferred Language: Divehi Communication Ability: Effective Visual Impairment: No Limitations Hearing Ability: Normal Clinical Secretary Required: No Beliefs That Will Affect Care: None marital status: Current Living Situation: Spouse current occupational status: employed and retired 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 NAD. Cooperative. On 2L o2 HEENT: Atraumatic, normocephalic. Pulm:RML/RLL fine crackles, otherwise CTAB Symmetrical chest rise. No increased work of breathing. No respiratory distress. Cardiac: RRR, soft sm. Radial pulses intact and symmetrical. Abdominal: Nontender, nondistended, soft. BS present. Results & Data Results & Data Vital Signs (Past 12 Hours) Vital Signs Temp Pulse Resp BP Pulse Ox O2 Del Method 04/17/24 17:04 127 H 04/17/24 16:44 37.8 C H 131 H 19 132/75 92 Room Air PG Care Time/CCT Total # of Minutes Spent Total Time Spent with Patient: Total time spent is greater than 50% in coordination of care (as documented) at patient's floor/unit and/or counseling patient: Coding Level of Care Code 92594 INT INP/OBS CARE 3/75MIN Diagnoses Community acquired pneumonia J18.9 Hypothyroidism E03.9 S/P mitral valve replacement Z95.2
[2024-04-17 19:19] LABS: Adenovirus PCR Not Detected (NotDetected); Bordetella parapertussis PCR Not Detected (NotDetected); Bordetella pertussis PCR Not Detected (NotDetected); Chlamydia pneumoniae PCR Not Detected (NotDetected); Coronavirus 229E PCR Not Detected (NotDetected); Coronavirus CoV-2 (COVID19)PCR Not Detected (NotDetected); Coronavirus HKU1 PCR Not Detected (NotDetected); Coronavirus NL63 PCR Not Detected (NotDetected); Coronavirus OC43PCR Not Detected (NotDetected); Human Metapneumovirus PCR Not Detected (NotDetected); Influenza A PCR Not Detected (NotDetected); Influenza B PCR Not Detected (NotDetected); Mycoplasma pneumoniae PCR Not Detected (NotDetected); Parainfluenza Virus 1 PCR Not Detected (NotDetected); Parainfluenza Virus 2 PCR Not Detected (NotDetected); Parainfluenza Virus 3 PCR Not Detected (NotDetected); Parainfluenza Virus 4 PCR Not Detected (NotDetected); Respiratory Syncytial VirusPCR Not Detected (NotDetected); Rhinovirus/Enterovirus PCR Not Detected (NotDetected)
--- NOTE | 2024-04-17 19:52 | XRay Report ---
SINGLE VIEW CHEST CLINICAL HISTORY: Sepsis. FINDINGS: 2 AP, portable, upright chest radiographs are compared to chest x-ray and chest CT dated . The patient is status post midline sternotomy. The heart is enlarged noting atherosclerotic calcification of the thoracic aorta. The pulmonary vasculature is noncongested. Chronic interstitial thickening is similar to previous. There is airspace consolidation at the right lung base and a small right pleural effusion. No pneumothorax is seen. The skeletal structures are osteopenic. The bony th orax is grossly intact. IMPRESSION: 1. There is airspace consolidation at the right lung base with a small right pleural effusion. The ap pearance is typical for pneumonia/aspiration pneumonitis. Clinical correlation will be required and r adiographic follow-up to resolution is recommended. 2. Cardiomegaly without radiographic evidence of congestive failure. ACT 112: Negative or not required by law. Electronically signed by: Serafin Nava M.D. 04/17/2024 7:50 PM
[2024-04-17] MEDS: LACTATED RINGER'S 1,000 ML IV SCH (21:21)
[2024-04-17] MEDS: WARFARIN SOD 7.5 MG TAB PO ONE (21:22)
[2024-04-17] MEDS: MONTELUKAST SODIUM 10 MG TABLET PO SCH (21:22)
[2024-04-17] MEDS: traMADol HCL 50 MG TABLET PO SCH (21:25)
[2024-04-18 01:34] LABS: Appearance Urine Clear (Clear); Bacteria Urine Automated None Seen (None Seen); Bilirubin Urine Negative (Negative); Blood Urine Negative (Negative); Cast Urine Automated 0-2 /lpf (0-2); Color Urine Yellow; Epithelial Cell Urine Auto 0-2 /hpf (0-2); Glucose Urine UA Negative (Negative); Ketones Urine 1+ (Negative); Leukocyte Esterase Urine 1+ (Negative); Nitrite Urine Negative (Negative); Protein Urine Negative (Negative); Specific Gravity Urine 1.015 (1.000-1.030); Urobilinogen Urine Negative (Negative); WBC Urine Automated 21-50 /hpf (0-5)
[2024-04-18] MEDS: CEFEPIME 2,000 MG in SYRINGE 0 ML IV SCH (02:45)
[2024-04-18] MEDS: ACETAMINOPHEN 500 MG TAB PO PRN (03:00)
[2024-04-18] MEDS: LEVOTHYROXINE SODIUM 100 MCG TABLET PO SCH (05:56)
[2024-04-18 06:49] LABS: Basophils # (auto) 0.02 K/uL (0.00-0.20); Basophils % (auto) 0.4 %; Eosinophils # (auto) 0.01 K/uL (0.00-0.50); Eosinophils % (auto) 0.2 %; Hematocrit (blood only) 35.3 % (37.0-47.0); Hemoglobin 11.8 g/dl (12.0-16.0); Immature Granulocytes # (auto) 0.01 K/uL (0.01-0.20); Immature Granulocytes % (auto) 0.2 %; Lymphocytes # (auto) 0.32 K/uL (1.20-3.40); Lymphocytes % (auto) 6.1 %; Mean Corpuscular Hemoglobin 32.4 pg (25.0-34.0); Mean Corpuscular Hgb Conc 33.4 g/dL (32.0-36.0); Mean Platelet Volume 10.9 fL (9.4-12.4); Monocytes # (auto) 0.19 K/uL (0.11-0.59); Monocytes % (auto) 3.6 %; Neutrophils # (auto) 4.69 K/uL (1.40-6.50); Neutrophils % (auto) 89.5 %; Platelet Count 144 K/uL (130-400); RDW Coefficient of Variation 14.8 % (11.5-14.5); RDW Standard Deviation 53.2 fL (36.4-46.3); Red Blood Count 3.64 M/uL (4.20-5.40); White Blood Count 5.24 K/ul (4.8-10.8)
[2024-04-18 07:13] LABS: BUN Creatinine Ratio 15.8 (10-20); Calcium 8.3 mg/dl (8.6-10.3); Creatinine Clr Calc Pharmacy 84.9 ml/min; Est GFR (African American) 106.6 ml/min; Potassium 3.8 mmol/L (3.5-5.1)
[2024-04-18 07:21] LABS: INR 1.8 (0.9-1.1); Prothrombin Time 18.9 Seconds (9.0-12.0)
--- NOTE | 2024-04-18 10:51 | Electrocardiogram Report ---
Test Reason : Blood Pressure : / mmHG Vent. Rate : 127 BPM Atrial Rate : 254 BPM P-R Int : 000 ms QRS Dur : 084 ms QT Int : 316 ms P-R-T Axes : 000 052 056 degrees QTc Int : 459 ms Atrial flutter with variable A-V block with premature ventricular or aberrantly conducted complexes Nonspecific ST abnormality Abnormal ECG When compared with ECG of 05-SEP-2013 15:21, Atrial flutter has replaced Sinus rhythm Vent. rate has increased BY [address] now depressed in Inferior leads Confirmed by Zoran Diop ([id number]) on 04/18/2024 10:51:06 AM Referred By: REFERRED SELF Confirmed By:Ousmane Diop
--- NOTE | 2024-04-18 14:58 | Hospitalist Progress Note ---
Date of Service April 18, 2024 Assessment & Plan (1) Community acquired pneumonia: Plan: Sepsis 2/2 PNA - Febrile, No leukocytosis, +RLL PNA, +sinus tachycardia, borderline hypoxic and desats easily - Lactate elevated, cleared on repeat. Patient clinically improving and with greatly improved appearance on reassessment post fluids - Biofire pending -Has received her sepsis 30 cc/kg recommendations of 1800 cc, received 2 L NSS in the ER Continue cefepime MRSA nare pending Blood cultures pending Sputum culture ordered No prior culture history available Suspect viral URI which has progressed to secondary superimposed pneumonia. Pulmonary history History of Siegel's lung/hypersensitivity pneumonitis which was treated at [facility], prednisone was tapered as outpatient. 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, no evidence of major immunosuppressive abnormality If patient is not progressing as expected, repeat IgG levels 04/18 reports fever, blood culture, sputum culture are pending add doxycycline CT chest consult pulm (2) Hypothyroidism: Plan: Hypothyroidism Continue Synthroid (3) S/P mitral valve replacement: Plan: S/p mitral valve replacement, history of palpitations Last echo with EF 55 to 60%, diastolic dysfunction, mechanical mitral valve with a well-seated prosthesis Continue warfarin, goal INR 2.53.5 Slightly subtherapeutic on admission 1.8. Patient is not taking her warfarin tonight, 7.5 mg x 1 04/18 continue coumadin Plan DVT prophylaxis: Anticoagulated Diet: Regular Disposition: Medical telemetry given tachycardia and poor clinical appearance CODE STATUS: Full code Admission and Anticipated Discharge Date Admission Date: April 17, 2024 Subjective reports cough and fever Review of Systems Review of Systems: All systems reviewed & are unremarkable except as noted in HPI & below Physical Exam Physical Exam: head atraumatic neck supple chest crackles at right base heart S1S2 regular abdomen soft, nt, nd, BS present extremities no edema Results & Data Results & Data Vital Signs (Past 12 Hours) Vital Signs Temp Pulse Pulse Resp BP Pulse Ox O2 Del Method 04/18/24 11:47 37.8 C H 123 H 20 104/66 90 Nasal Cannula 04/18/24 10:41 39.4 C H 118 H 04/18/24 09:43 Nasal Cannula 04/18/24 09:36 103 H 04/18/24 08:01 37.4 C 104 H 18 97/55 L 93 Room Air 06/10/24 02:59 39.3 C H 124 H 20 120/72 92 Nasal Cannula O2 Flow Rate 04/18/24 11:47 3 04/18/24 10:41 04/18/24 09:43 2 04/18/24 09:36 04/18/24 08:01 04/18/24 02:59 4 PG Care Time/CCT Total # of Minutes Spent Total Time Spent with Patient: Total time spent is greater than 50% in coordination of care (as documented) at patient's floor/unit and/or counseling patient: Coding Level of Care Code 12359 SUB INP/OBS CARE 2/35MIN Diagnoses Community acquired pneumonia J18.9 Hypothyroidism E03.9 S/P mitral valve replacement Z95.2
[2024-04-18] MEDS: ALBUT/IPRATROP 3MG/0.5MG NEB 3 ML VIAL NEB PRN (15:36)
--- NOTE | 2024-04-18 15:51 | Pulmonary Consultation ---
Date of Consultation April 18, 2024 Assessment & Plan (1) Pneumonia: Laterality: right Lung location: lower lobe of lung Pneumonia type: due to unspecified organism Qualified Code(s): J18.9 - Pneumonia, unspecified organism (2) Community acquired pneumonia: (3) Acute respiratory failure with hypoxia: (4) Pulmonary nodule: (5) Hypersensitivity pneumonitis: Plan CT chest 04/18/2024 personally reviewed: Dense consolidative process appreciated in the right lower lobe Small right-sided pleural effusion and minimal left-sided pleural effusion Left lower lobe pleural-based 6 mm pulmonary nodule Right hilar and subcarinal lymphadenopathy Chest x-ray 04/17/2024 personally reviewed: Portable film, hyperinflated from, blunting of the right costophrenic angles with patchy opacities in the right lower lobe, increased cardiac silhouette, Increased pulmonary vascular markings 2D echo 04/09/2023: EF 55-60%, RV normal in size and function, RVSP 30-40 mmHg -- Acute respiratory failure with hypoxia Secondary to right lower lobe pneumonia HFpEF might also be playing a role Respiratory bio fire negative for everything Procalcitonin 0.16, nasal MRSA negative BNP 212 --History of hypersensitive pneumonitis Diagnosed at [place] She was treated briefly in 2018 -- S/p mechanical mitral valve On warfarin -- History of DCIS Right breast Plan: Follow BNP CT chest has already been ordered Follow sputum culture Continue with antibiotics. Given that the patient came in with low-normal sodium I will DC doxycycline and give the patient levofloxacin instead. QTc 459 on 04/17/2024 Patient was supposed to have a 2D echo done next week. Will order it now. Would recommend avoiding any IV fluids. Keep the patient euvolemic Please note the above document was generated using voice recognition software. It may contain grammatical, syntax or spelling errors.Any formal questions or concerns about the content, text or information contained within the body of this dictation should be directly addressed to the provider for clarification. History of Present Illness Attending Physician: Velvet Luz MD History of Present Illness 74-year-old female was admitted to the hospital for shortness of breath Past medical history: Hypothyroidism, s/p MVR, hypersensitive pneumonitis s/p treatment Pulmonary consulted for pneumonia At the time of examination patient was not in any respiratory distress She stated that she is feeling better compared to when she presented to the hospital It was last when she started to have chills at night, the following day she started to have cough. She does have some pleuritic chest pain on the right side. Started to spike fever couple of days back Denies any diarrhea. No recent travel history No unusual headache or blurry vision Has been compliant with her warfarin. No dysuria, no hematuria, hematochezia, no epistaxis Social history: Lifetime non-smoker Allergies Allergy/AdvReac Type Severity Reaction Status Date / Time Sulfa (Sulfonamide Allergy Mild RASH Verified 04/17/24 18:27 Antibiotics) Home Medications Medication Instructions Recorded Confirmed Type multivitamin 1 tab PO QAM 08/20/18 04/17/24 History acetaminophen 650 mg 650 mg PO Q12H PRN Pain 12/18/19 04/17/24 History tablet,extended release (Tylenol Arthritis Pain) cholecalciferol (vitamin D3) 50 2,000 unit PO QAM 12/18/19 04/17/24 History mcg (2,000 unit) tablet (Vitamin D3) triamcinolone acetonide 0.1 % 1 applic topical BID PRN Rash 09/17/20 04/17/24 History topical cream montelukast 10 mg tablet 10 mg PO QPM 02/15/21 04/17/24 History (Singulair) levothyroxine 100 mcg tablet 100 mcg PO QAM #90 tabs 05/04/23 04/17/24 Rx fluticasone propionate 50 1 spray intranasal QAM #9.9 mL 04/01/24 04/17/24 Rx mcg/actuation nasal spray,suspension (Flonase Allergy Relief) amoxicillin 500 mg capsule 2,000 mg PO DIRECTED PRN PRIOR 04/17/24 04/17/24 History TO DENTAL PROCEDURES cyanocobalamin (vitamin B-12) 500 500 mcg PO DAILY 04/17/24 04/17/24 History mcg tablet (Vitamin B-12) tramadol 50 mg tablet 50 mg PO QPM pain 04/17/24 04/17/24 History warfarin 5 mg tablet 5 mg PO QPM 04/17/24 04/17/24 History Patient History Medical History Dehydration Encounter for pre-operative examination [place]' lung DX 3 YEARS AGO (READON FOR BRONCHOSCOPY) CLEARED AFTER TREATMENT Jaw clicking NO LOCKING History of restless legs syndrome RESOLVED Seasonal allergies Bowel habit changes Colon cancer screening Bronchitis History of DIC syndrome POST MVR SURGERY OVER 25 YEARS AGO Osteoarthritis IBS (irritable bowel syndrome) Hypothyroidism Asthma HAS NOT USED INHALER FOR A WHILE Surgical History H/O: hysterectomy H/O heart bypass surgery Family history of reaction to anesthesia History of bronchoscopy History of partial hysterectomy History of carpal tunnel release History of tooth extraction History of cardiac cath History of dilation and curettage S/P mitral valve replacement History of cataract surgery History of lumpectomy of right breast History of colonoscopy History of appendectomy History of arthroscopy History of total knee replacement History of heart valve replacement Family History Mother Family hx of colon cancer Osteoarthritis Colorectal cancer Cancer Brother Prostate cancer Son Family history of diabetes mellitus Diabetes Sister Breast cancer Father Cancer Denies family history of Ovarian cancer Myocardial infarction Stroke Social History Smoking Status: Never smoker Second Hand Exposure: No; Do You Dip or Chew Tobacco: No; Tobacco Cessation Education Requested by Patient: No Hx Alcohol Use: No Hx Substance Use: No Preferred Language: Yi Communication Ability: Effective Visual Impairment: No Limitations Hearing Ability: Normal Golf Instructor Required: No Beliefs That Will Affect Care: None marital status: Current Living Situation: Spouse current occupational status: employed and 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 Other Information That Helps Us Care for You: No Feels Safe at Home: Yes Safety Concerns: Feels Safe At This Time Childhood Exposure to Second-Hand Smoke: Yes (Mother) Diet: gluten free Diet Comment: dairy free during the past year weight has: remained stable Dental Care, Regularly: Yes Physical Activity Frequency: Daily Seatbelt Use: always Sunscreen Use: Yes Assistive Devices: None Review of Systems 2 Review of Systems: All systems reviewed & are unremarkable except as noted in HPI & below Physical Exam 2 Physical Exam: Constitutional: No acute distress HEENT: EOMI, PERRLA Respiratory system: Good air entry bilaterally, no wheeze, no rhonchi, positive crackles appreciated bilaterally, R>L CVS: S1-S2 positive, no murmurs or gallops, mechanical heart sound Abdomen: Soft, nontender, nondistended, positive bowel sounds x4 Extremities: +2 pulses bilaterally radialis/ dorsalis pedis, no cyanosis, no edema Neuro: Awake alert oriented x3 Psych: Normal mood and affect G/U: No [place] Skin: no rashes, warm and dry Lymphatic: no cervical or axillary lymphadenopathy Results & Data Results & Data Vital Signs (Past 12 Hours) Vital Signs Temp Pulse Pulse Pulse Resp BP Pulse Ox 04/18/24 15:38 120 H 20 96 04/18/24 15:02 36.9 C 93 H 19 107/70 93 04/18/24 11:47 37.8 C H 123 H 20 104/66 90 04/18/24 10:41 39.4 C H 118 H 04/18/24 09:43 04/18/24 09:36 103 H 04/18/24 08:01 37.4 C 104 H 18 97/55 L 93 O2 Del Method O2 Flow Rate 04/18/24 15:38 Nasal Cannula 3 04/18/24 15:02 Nasal Cannula 3 04/18/24 11:47 Nasal Cannula 3 04/18/24 10:41 04/18/24 09:43 Nasal Cannula 2 04/18/24 09:36 04/18/24 08:01 Room Air Laboratory Results 04/18/24 05:58 04/18/24 05:58 PG Care Time/CCT Total # of Minutes Spent Total Time Spent with Patient: Total time spent is greater than 50% in coordination of care (as documented) at patient's floor/unit and/or counseling patient: Coding Level of Care Code 29863 INT INP/OBS CARE 3/75MIN Diagnoses Pneumonia J18.9 Laterality: right Lung location: lower lobe of lung Pneumonia type: due to unspecified organism Community acquired pneumonia J18.9 Acute respiratory failure with hypoxia J96.01 Pulmonary nodule R91.1 Hypersensitivity pneumonitis J67.9
--- NOTE | 2024-04-18 16:36 | CT Scan Report ---
CT chest diagnostic wo con CLINICAL HISTORY: fever, pneumonia TECHNIQUE: Multidetector row helical CT of the chest was performed. Coronal and sagittal reformations were obtained. Automated dose lowering techniques and/or adjustment according to patient size were u tilized for this exam. CT DOSE: 211.99 mGy.cm Comparison: Comparison is made to chest 06/08/2023 FINDINGS: Lungs and pleura: Biapical scarring is seen. There is airspace opacity in the right lower lobe with a small pleural effusion. There is a stable 6 mm pleural-based nodule in the left lower lobe (series 4 image 159). Heart and pericardium: Mitral valvular prosthesis is seen. Biatrial enlargement is noted. Vessels: Pulmonary trunk measures 32 mm. Mediastinum and shruthi: Subcentimeter lymph nodes are seen. Chest wall and lower neck: Unremarkable. Abdomen: Unremarkable. Bones: Degenerative changes in the thoracic spine. IMPRESSION: Findings compatible with pneumonia with reactive lymph nodes. Trace right pleural effusion is seen. P artial visualization of stable pulmonary nodules as above. ACT 112: Negative or not required by law. Electronically signed by: Javier Cortez M.D. 04/18/2024 4:34 PM
[2024-04-18] MEDS: WARFARIN SOD 7.5 MG TAB PO SCH (16:40)
[2024-04-18] MEDS: levoFLOXacin 750 MG TAB PO SCH (18:35)
[2024-04-18] MEDS ORDERED: WARFARIN SOD 5 MG TAB PO SCH (21:00)
[2024-04-18] MEDS ORDERED: DOXYCYCLINE HYCLATE 100 MG CAP PO SCH (21:00)
[2024-04-19 06:06] LABS: Basophils # (auto) 0.02 K/uL (0.00-0.20); Basophils % (auto) 0.5 %; Eosinophils # (auto) 0.01 K/uL (0.00-0.50); Eosinophils % (auto) 0.3 %; Hemoglobin 11.7 g/dl (12.0-16.0); Immature Granulocytes # (auto) 0.01 K/uL (0.01-0.20); Immature Granulocytes % (auto) 0.3 %; Mean Corpuscular Hemoglobin 32.1 pg (25.0-34.0); Mean Corpuscular Hgb Conc 33.4 g/dL (32.0-36.0); Mean Corpuscular Volume 95.9 fL (80.0-100.0); Mean Platelet Volume 10.6 fL (9.4-12.4); Monocytes # (auto) 0.16 K/uL (0.11-0.59); Neutrophils # (auto) 3.57 K/uL (1.40-6.50); Neutrophils % (auto) 89.9 %; Platelet Count 141 K/uL (130-400); RDW Coefficient of Variation 14.6 % (11.5-14.5); RDW Standard Deviation 51.8 fL (36.4-46.3); Red Blood Count 3.65 M/uL (4.20-5.40); White Blood Count 3.97 K/ul (4.8-10.8)
[2024-04-19 06:23] LABS: BUN Creatinine Ratio 18.5 (10-20); Calcium 8.4 mg/dl (8.6-10.3); Creatinine Clr Calc Pharmacy 87.3 ml/min; Est GFR (African American) 108.5 ml/min; Est GFR (Non-African American) 93.6 ml/min; Potassium 3.6 mmol/L (3.5-5.1)
[2024-04-19 06:30] LABS: INR 2.9 (0.9-1.1); Prothrombin Time 28.3 Seconds (9.0-12.0)
--- NOTE | 2024-04-19 11:09 | Pulmonology Progress Note ---
Date of Service April 19, 2024 Assessment & Plan (1) Pneumonia: Laterality: right Lung location: lower lobe of lung Pneumonia type: due to unspecified organism Qualified Code(s): J18.9 - Pneumonia, unspecified organism (2) Community acquired pneumonia: (3) Acute respiratory failure with hypoxia: (4) Pulmonary nodule: (5) Hypersensitivity pneumonitis: Plan CT chest 04/18/2024 personally reviewed: Dense consolidative process appreciated in the right lower lobe Small right-sided pleural effusion and minimal left-sided pleural effusion Left lower lobe pleural-based 6 mm pulmonary nodule Right hilar and subcarinal lymphadenopathy Chest x-ray 04/17/2024 personally reviewed: Portable film, hyperinflated from, blunting of the right costophrenic angles with patchy opacities in the right lower lobe, increased cardiac silhouette, Increased pulmonary vascular markings 2D echo 04/09/2023: EF 55-60%, RV normal in size and function, RVSP 30-40 mmHg -- Acute respiratory failure with hypoxia Secondary to right lower lobe pneumonia HFpEF might also be playing a role Respiratory bio fire negative for everything Procalcitonin 0.16, nasal MRSA negative BNP 212 --History of hypersensitive pneumonitis Diagnosed at [place] She was treated briefly in 2018 -- S/p mechanical mitral valve On warfarin -- History of DCIS Right breast Plan: Follow sputum culture Continue with levofloxacin for total of 7 days, QTc 401 on 04/19/2024 Levofloxacin will interfere with warfarin, will need adjustments of warfarin dose. Will defer to primary team/pharmacy Would recommend avoiding any IV fluids. Keep the patient euvolemic Repeat chest x-ray in the morning Case was discussed with primary team Please note the above document was generated using voice recognition software. It may contain grammatical, syntax or spelling errors.Any formal questions or concerns about the content, text or information contained within the body of this dictation should be directly addressed to the provider for clarification. Admission and Anticipated Discharge Date Admission Date: April 17, 2024 Subjective Patient seen and examined at bedside. No acute distress, no adverse events overnight She was saturating 96% on 3 L, I went down to 2 L She stated she is feeling better compared to yesterday. Denies any pleuritic chest pain No nausea or vomiting, fair appetite Has been walking around in the corridor door Coughing up bringing up clear phlegm. Denies any hemoptysis. Patient's was in the room at the time of examination Review of Systems 2 Review of Systems: All systems reviewed & are unremarkable except as noted in Subjective Physical Exam 2 Physical Exam: Constitutional: No acute distress HEENT: EOMI, PERRLA Respiratory system: Good air entry bilaterally, no wheeze, no rhonchi, positive crackles appreciated bilaterally, R>L CVS: S1-S2 positive, no murmurs or gallops, mechanical heart sound Abdomen: Soft, nontender, nondistended, positive bowel sounds x4 Extremities: +2 pulses bilaterally radialis/ dorsalis pedis, no cyanosis, no edema Neuro: Awake alert oriented x3 Psych: Normal mood and affect G/U: No Sarmiento Skin: no rashes, warm and dry Lymphatic: no cervical or axillary lymphadenopathy Results & Data Results & Data Vital Signs (Past 12 Hours) Vital Signs Temp Pulse Pulse Resp BP Pulse Ox O2 Del Method 04/19/24 09:41 Nasal Cannula 04/19/24 07:48 37.1 C 108 H 18 121/66 96 Nasal Cannula 04/19/24 07:38 112 H 04/19/24 04:12 37.4 C 123 H 16 115/63 93 Nasal Cannula 04/19/24 00:36 111 H O2 Flow Rate 04/19/24 09:41 3 04/19/24 07:48 3 04/19/24 07:38 04/19/24 04:12 3 04/19/24 00:36 Laboratory Results 04/19/24 05:26 04/19/24 05:26 PG Care Time/CCT Total # of Minutes Spent Total Time Spent with Patient: Total time spent is greater than 50% in coordination of care (as documented) at patient's floor/unit and/or counseling patient: Coding Level of Care Code 50727 SUB INP/OBS CARE 3/50MIN Diagnoses Pneumonia J18.9 Laterality: right Lung location: lower lobe of lung Pneumonia type: due to unspecified organism Community acquired pneumonia J18.9 Acute respiratory failure with hypoxia J96.01 Pulmonary nodule R91.1 Hypersensitivity pneumonitis J67.9
--- NOTE | 2024-04-19 12:23 | XCELERA ---
[id number] [id number]
--- NOTE | 2024-04-19 12:37 | Electrocardiogram Report ---
Test Reason : Blood Pressure : / mmHG Vent. Rate : 096 BPM Atrial Rate : 125 BPM P-R Int : 000 ms QRS Dur : 088 ms QT Int : 318 ms P-R-T Axes : 000 019 005 degrees QTc Int : 401 ms Atrial fibrillation Abnormal ECG When compared with ECG of 17-APR-2024 16:55, Atrial fibrillation has replaced Atrial flutter ST no longer depressed in Inferior leads Nonspecific T wave abnormality now evident in Inferior leads T wave amplitude has decreased in Anterior leads Confirmed by Zoran Diop ([id number]) on 04/19/2024 12:37:28 PM Referred By: REFERRED SELF Confirmed By:Ousmane Diop
--- NOTE | 2024-04-19 13:06 | Hospitalist Progress Note ---
Date of Service April 19, 2024 Assessment & Plan (1) Community acquired pneumonia: Plan: Sepsis 2/2 PNA - Febrile, No leukocytosis, +RLL PNA, +sinus tachycardia, borderline hypoxic and desats easily - Lactate elevated, cleared on repeat. Patient clinically improving and with greatly improved appearance on reassessment post fluids - Biofire pending -Has received her sepsis 30 cc/kg recommendations of 1800 cc, received 2 L NSS in the ER Continue cefepime MRSA nare pending Blood cultures pending Sputum culture ordered No prior culture history available Suspect viral URI which has progressed to secondary superimposed pneumonia. Pulmonary history History of Siegel's lung/hypersensitivity pneumonitis which was treated at [facility], prednisone was tapered as outpatient. 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 Patient is not taking her warfarin tonight, 7.5 mg x 1 04/18 continue coumadin 04/19 INR is therapeutic , continue Coumadin 5 mg (4) Acute respiratory failure with hypoxia: Plan: due to pneumonia continue antibiotics wean off oxygen as tolerated (5) Tachycardia: Plan: etiology unclear ECHO obtained obtain TSH EKG Plan DVT prophylaxis: Anticoagulated Diet: Regular Disposition: Medical telemetry given tachycardia and poor clinical appearance CODE STATUS: Full code Admission and Anticipated Discharge Date Admission Date: April 17, 2024 Subjective Patient seen and examined at bedside. No acute distress, no adverse events overnight She was saturating 96% on 3 L, I went down to 2 L She stated she is feeling better compared to yesterday. Denies any pleuritic chest pain No nausea or vomiting, fair appetite Has been walking around in the corridor door Coughing up bringing up clear phlegm. Denies any hemoptysis. Patient's was in the room at the time of examination Physical Exam Physical Exam: head atraumatic neck supple chest crackles at right base heart S1S2 regular abdomen soft, nt, nd, BS present extremities no edema Results & Data Results & Data Vital Signs (Past 12 Hours) Vital Signs Temp Pulse Pulse Resp BP Pulse Ox O2 Del Method 04/19/24 11:23 36.9 C 120 H 20 100/57 L 98 Nasal Cannula 04/19/24 09:41 Nasal Cannula 04/19/24 07:48 37.1 C 108 H 18 121/66 96 Nasal Cannula 04/19/24 07:38 112 H 04/19/24 04:12 37.4 C 123 H 16 115/63 93 Nasal Cannula O2 Flow Rate 04/19/24 11:23 3 04/19/24 09:41 3 04/19/24 07:48 3 04/19/24 07:38 04/19/24 04:12 3 PG Care Time/CCT Total # of Minutes Spent Total Time Spent with Patient: Total time spent is greater than 50% in coordination of care (as documented) at patient's floor/unit and/or counseling patient: Coding Level of Care Code 23896 SUB INP/OBS CARE 2/35MIN Diagnoses Community acquired pneumonia J18.9 Hypothyroidism E03.9 S/P mitral valve replacement Z95.2 Acute respiratory failure with hypoxia J96.01 Tachycardia R00.0
[2024-04-19] MEDS ORDERED: LEVALBUTEROL HCL 0.63 MG/3 ML NEB NEB PRN (13:09)
[2024-04-19 13:58] LABS: Thyroid Stimulating Hormone 3.723 uIu/ml (0.300-4.500)
--- NOTE | 2024-04-19 17:13 | Electrocardiogram Report ---
Test Reason : Blood Pressure : / mmHG Vent. Rate : 118 BPM Atrial Rate : 120 BPM P-R Int : 000 ms QRS Dur : 084 ms QT Int : 312 ms P-R-T Axes : 000 039 051 degrees QTc Int : 437 ms Atrial fibrillation with rapid ventricular response with premature ventricular or aberrantly conducte d complexes Nonspecific ST abnormality Abnormal ECG When compared with ECG of 19-APR-2024 06:06, Nonspecific T wave abnormality no longer evident in Inferior leads Confirmed by Zoran Diop ([id number]) on 04/19/2024 5:13:18 PM Referred By: REFERRED SELF Confirmed By:Ousmane Diop
[2024-04-20 06:45] LABS: Basophils # (auto) 0.01 K/uL (0.00-0.20); Basophils % (auto) 0.3 %; Eosinophils # (auto) 0.06 K/uL (0.00-0.50); Eosinophils % (auto) 1.9 %; Hematocrit (blood only) 33.8 % (37.0-47.0); Hemoglobin 11.3 g/dl (12.0-16.0); Immature Granulocytes # (auto) 0.01 K/uL (0.01-0.20); Immature Granulocytes % (auto) 0.3 %; Lymphocytes # (auto) 0.31 K/uL (1.20-3.40); Mean Corpuscular Hemoglobin 31.8 pg (25.0-34.0); Mean Corpuscular Hgb Conc 33.4 g/dL (32.0-36.0); Mean Corpuscular Volume 95.2 fL (80.0-100.0); Mean Platelet Volume 10.1 fL (9.4-12.4); Monocytes # (auto) 0.27 K/uL (0.11-0.59); Monocytes % (auto) 8.7 %; Neutrophils # (auto) 2.44 K/uL (1.40-6.50); Neutrophils % (auto) 78.8 %; Platelet Count 137 K/uL (130-400); RDW Coefficient of Variation 14.4 % (11.5-14.5); RDW Standard Deviation 50.4 fL (36.4-46.3); Red Blood Count 3.55 M/uL (4.20-5.40)
[2024-04-20 07:06] LABS: BUN Creatinine Ratio 18.6 (10-20); Calcium 8.4 mg/dl (8.6-10.3); Creatinine Clr Calc Pharmacy 109.4 ml/min; Est GFR (African American) 116.9 ml/min; Est GFR (Non-African American) 100.9 ml/min; Potassium 3.3 mmol/L (3.5-5.1)
[2024-04-20 07:10] LABS: INR 4.4 (0.9-1.1); Prothrombin Time 41.9 Seconds (9.0-12.0)
--- NOTE | 2024-04-20 11:21 | Discharge Summary ---
Date of Service April 20, 2024 Admission HPI Per Admitting Provider Julieta Malik is a 74-year-old female with past medical history of breast cancer, farmers lung, pneumonia who was found to have a right-sided pneumonia on chest x-ray at [facility] and was referred to the ER for further care. She has had 3 days of fever, chills, cough. She reports last she started feeling tired, and then the next day had body aches all over. yesterday and today was with cough, fever 102, and shortness of breath. No recent steroids No chest pain or chest pressure No nause vomiting diarrhea Immunoglobinulin levels were checked years ago, pt reports she has been OK and has not needed any followup Took medications this AM. Takes coumadin in the evening, has not taken this yet today. Synthroid, vitamins, tramdol. [place]ast in evenings. Goal coumadin range is '2.5-3.5, but the lower end of 2.5' Medical History: Reviewed Medications: Reviewed Surgical History: Reviewed Family history: Reviewed Allergies: Reviewed. Rash to sulfa. Social History: No tobacco use, rare social etoh use Code Status: Full Principal Diagnosis pneumonia Discharge Exam head atraumatic neck supple chest crackles at right base heart S1S2 regular abdomen soft, nt, nd, BS present extremities no edema Discharge Data Allergies Allergy/AdvReac Type Severity Reaction Status Date / Time Sulfa (Sulfonamide Allergy Mild RASH Verified 04/17/24 18:27 Antibiotics) Consultations 04/17/24 18:27 ED Decision to Admit Stat 04/18/24 14:41 Consult Pulmonology Routine Ordered Studies 04/18/24 14:59 CT chest diagnostic wo con Urgent Hospital Course (1) Community acquired pneumonia: Sepsis 2/2 PNA - Febrile, No leukocytosis, +RLL PNA, +sinus tachycardia, borderline hypoxic and desats easily - Lactate elevated, cleared on repeat. Patient clinically improving and with greatly improved appearance on reassessment post fluids - Biofire pending -Has received her sepsis 30 cc/kg recommendations of 1800 cc, received 2 L NSS in the ER Continue cefepime MRSA nare pending Blood cultures pending Sputum culture ordered No prior culture history available Suspect viral URI which has progressed to secondary superimposed pneumonia. Pulmonary history History of Siegel's lung/hypersensitivity pneumonitis which was treated at [facility], prednisone was tapered as outpatient. 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, no evidence of major immunosuppressive abnormality If patient is not progressing as expected, repeat IgG levels 04/18 reports fever, blood culture, sputum culture are pending add doxycycline 04/19 CT chest RLL pneumonia pulm input appreciated 04/20 reports feeling better, no hypoxia, she is currently on Levaquin 750 mg daily (2) Hypothyroidism: Hypothyroidism Continue Synthroid (3) S/P mitral valve replacement: S/p mitral valve replacement, history of palpitations Last echo with EF 55 to 60%, diastolic dysfunction, mechanical mitral valve with a well-seated prosthesis Continue warfarin, goal INR 2.53.5 Slightly subtherapeutic on admission 1.8. Patient is not taking her warfarin tonight, 7.5 mg x 1 04/18 continue coumadin 04/19 INR is therapeutic , continue Coumadin 5 mg 04/20 INR 4.4, hold coumadin today, repeat INR tomorrow (4) Acute respiratory failure with hypoxia: due to pneumonia continue antibiotics wean off oxygen as tolerated hypoxia resolved (5) Tachycardia: etiology unclear ECHO no acute abnormalities obtain TSH EKG Plan DVT prophylaxis: Anticoagulated Diet: Regular Disposition: Medical telemetry given tachycardia and poor clinical appearance CODE STATUS: Full code Total Time Total Time Spent Total Time Spent (In Minutes): 45 minutes Discharge Plan Discharge Items Patient Disposition: Home - Self-Care Reason For Visit: CAP Discharge Diagnosis: pneumonia Condition on Discharge: Fair Activity: Resume your previous activity Non-emergency contact: Primary Care Provider Call non-emergency contact if: your symptoms worsen Follow-up/Referrals: Joshua Stahl MD [Primary Care Provider] - Diet: Regular Addtl Attending Provider Instructions: complete course of antibiotics Pending Studies at Discharge: No Stand-Alone Forms: My [employer], Smoking Cessation Medications and DC Order Prescriptions: New levofloxacin 750 mg Tablet 750 mg PO DAILY@1100 Qty: 5 0RF Continued levothyroxine 100 mcg tablet 100 mcg PO QAM Qty: 90 3RF fluticasone propionate [Flonase Allergy Relief] 50 mcg/actuation spray,suspension 1 spray INTRANASAL QAM Qty: 9.9 3RF montelukast [Singulair] 10 mg tablet 10 mg PO QPM triamcinolone acetonide 0.1 % cream 1 applic TOP BID PRN (Reason: Rash) Rx Instructions: Apply to areas of the trunk twice daily x 2 weeks as needed for flaring. multivitamin Tablet 1 tab PO QAM acetaminophen [Tylenol Arthritis Pain] 650 mg Tablet Extended Release 650 mg PO Q12H PRN (Reason: Pain) cholecalciferol (vitamin D3) [Vitamin D3] 2,000 unit Tablet 2,000 unit PO QAM cyanocobalamin (vitamin B-12) [Vitamin B-12] 500 mcg Tablet 500 mcg PO DAILY amoxicillin 500 mg capsule 2,000 mg PO DIRECTED PRN (Reason: PRIOR TO DENTAL PROCEDURES) tramadol 50 mg tablet 50 mg PO QPM Rx Instructions: PER PT "TAKES EVERY DAY AT 1400". Ongoing therapy Held warfarin 5 mg tablet 5 mg PO QPM Hold Instructions: tonight, repeat INR tomorrow, dose as per INR Protocol: Dose Management Condition: Thursday Dose/Route: 5 mg Instruction: 1 x 5 mg tablet Condition: Thursday Dose/Route: 5 mg Instruction: 1 x 5 mg tablet Condition: Thursday Dose/Route: 5 mg Instruction: 1 x 5 mg tablet Condition: Thursday Dose/Route: 5 mg Instruction: 1 x 5 mg tablet Condition: Dose/Route: 5 mg Instruction: 1 x 5 mg tablet Condition: Thursday Dose/Route: 5 mg Instruction: 1 x 5 mg tablet Condition: Thursday Dose/Route: 5 mg Instruction: 1 x 5 mg tablet Protocol Text: Adjustment Start Date: Thursday04/15/24 INR Value: 4.0 INR Date: 04/14/24 Recheck Date: 04/22/24 Additional Instructions: Patient aware to hold warfarin on 04/14/24 then resume 5 mg daily Rx Instructions: RECENT CHANGE TO 5 MG QPM, UNTIL NEXT INR SCHEDULED. Discharge Orders: Discharge Order (Routine); Ordered 04/20/24 Ordered By: Velvet Luz Admission Data Admit Date/Time: 04/17/24 18:50 Attending Provider: Velvet Luz Admit Provider: Phill Peters Primary Care Provider: Joshua Stahl V. Other Providers: Phill Peters; Parth Tavarez; Hermilo Cordoba; Pedrito Bah; Oswaldo Jacobs; Lorenza Michel; Remedios Villatoro; Felipe Guzman; Srinivasa Cuellar; Yudelka Booker Coding Level of Care Code 14342 INP/OBS DISCH >30 MIN Diagnoses Community acquired pneumonia J18.9 Hypothyroidism E03.9 S/P mitral valve replacement Z95.2 Acute respiratory failure with hypoxia J96.01 Tachycardia R00.0
[2024-04-20] MEDS: POTASSIUM CHLORIDE CRTAB 20 MEQ TABCR PO STA (11:37)
--- NOTE | 2024-04-20 12:12 | Pulmonology Progress Note ---
Date of Service April 20, 2024 Assessment & Plan (1) Pneumonia: Laterality: right Lung location: lower lobe of lung Pneumonia type: due to unspecified organism Qualified Code(s): J18.9 - Pneumonia, unspecified organism (2) Community acquired pneumonia: (3) Acute respiratory failure with hypoxia: (4) Pulmonary nodule: (5) Hypersensitivity pneumonitis: Plan CT chest 04/18/2024 personally reviewed: Dense consolidative process appreciated in the right lower lobe Small right-sided pleural effusion and minimal left-sided pleural effusion Left lower lobe pleural-based 6 mm pulmonary nodule Right hilar and subcarinal lymphadenopathy Chest x-ray 04/17/2024 personally reviewed: Portable film, hyperinflated from, blunting of the right costophrenic angles with patchy opacities in the right lower lobe, increased cardiac silhouette, Increased pulmonary vascular markings 2D echo 04/09/2023: EF 55-60%, RV normal in size and function, RVSP 30-40 mmHg -- Acute respiratory failure with hypoxia Secondary to right lower lobe pneumonia HFpEF might also be playing a role Respiratory bio fire negative for everything Procalcitonin 0.16, nasal MRSA negative BNP 212 --History of hypersensitive pneumonitis Diagnosed at [place] She was treated briefly in 2018 -- S/p mechanical mitral valve On warfarin -- History of DCIS Right breast Plan: Follow sputum culture Continue with levofloxacin for total of 7 days, QTc 401 on 04/19/2024 Levofloxacin will interfere with warfarin, will need adjustments of warfarin dose. Will defer to primary team/pharmacy Would recommend avoiding any IV fluids. Keep the patient euvolemic Repeat chest x-ray in the morning Case was discussed with primary team Please note the above document was generated using voice recognition software. It may contain grammatical, syntax or spelling errors.Any formal questions or concerns about the content, text or information contained within the body of this dictation should be directly addressed to the provider for clarification. Admission and Anticipated Discharge Date Admission Date: April 17, 2024 Review of Systems 2 Review of Systems: All systems reviewed & are unremarkable except as noted in Subjective Physical Exam 2 Physical Exam: Constitutional: No acute distress HEENT: EOMI, PERRLA Respiratory system: Good air entry bilaterally, no wheeze, no rhonchi, positive crackles appreciated bilaterally, R>L CVS: S1-S2 positive, no murmurs or gallops, mechanical heart sound Abdomen: Soft, nontender, nondistended, positive bowel sounds x4 Extremities: +2 pulses bilaterally radialis/ dorsalis pedis, no cyanosis, no edema Neuro: Awake alert oriented x3 Psych: Normal mood and affect G/U: No Sarmiento Skin: no rashes, warm and dry Lymphatic: no cervical or axillary lymphadenopathy Results & Data Results & Data Vital Signs (Past 12 Hours) Vital Signs Temp Pulse Pulse Pulse Pulse Resp Resp 04/20/24 11:38 36.6 C 100 H 18 04/20/24 10:03 118 H 120 H 22 04/20/24 09:11 04/20/24 07:48 36.7 C 101 H 20 04/20/24 06:52 97 H 04/20/24 02:54 36.6 C 98 H 18 04/20/24 00:16 116 H Resp BP Pulse Ox Pulse Ox Pulse Ox O2 Del Method O2 Flow Rate 04/20/24 11:38 106/58 L 95 Room Air 04/20/24 10:03 16 89 L 91 04/20/24 09:11 Room Air 04/20/24 07:48 109/59 L 94 Room Air 1 04/20/24 06:52 04/20/24 02:54 115/71 90 Room Air 04/20/24 00:16 Laboratory Results 04/20/24 05:49 04/20/24 05:49 PG Care Time/CCT Total # of Minutes Spent Total Time Spent with Patient: Total time spent is greater than 50% in coordination of care (as documented) at patient's floor/unit and/or counseling patient: Coding Level of Care Code 16799 SUB INP/OBS CARE 2/35MIN Diagnoses Pneumonia J18.9 Laterality: right Lung location: lower lobe of lung Pneumonia type: due to unspecified organism Community acquired pneumonia J18.9 Acute respiratory failure with hypoxia J96.01 Pulmonary nodule R91.1 Hypersensitivity pneumonitis J67.9
[2024-04-20 16:20] LABS: 18KDIGG Band NON-REACTIVE; 23KDIGG Band NON-REACTIVE; 23KDIGM Band NON-REACTIVE; 28KDIGG Band NON-REACTIVE; 30KDIGG Band NON-REACTIVE; 39KDIGG Band NON-REACTIVE; 39KDIGM Band NON-REACTIVE; 41KDIGG Band REACTIVE; 41KDIGM Band NON-REACTIVE; 45KDIGG Band NON-REACTIVE; 58KDIGG Band NON-REACTIVE; 66KDIGG Band NON-REACTIVE; 93KDIGG Band NON-REACTIVE; Lyme Antibodies, WB IgG NEGATIVE (NEGATIVE); Lyme Antibodies, WB IgM NEGATIVE (NEGATIVE)
== END 2024-04-20 12:10 | disposition home or self-care (01) | DRG 871 ==
LOC: ED 16:42 → 2S 18:50 → SUATTDRO 18:50 → 2S 21:10

== ENCOUNTER 2024-09-06 05:09 | Observation (INO) ==
--- NOTE | 2024-08-17 14:32 | PAT Medication Instructions ---
Medication Instructions Date of Service August 17, 2024 Home Medications Medication Instructions Recorded fluticasone propionate 50 1 spray intranasal QAM #9.9 mL 04/01/24 mcg/actuation nasal spray,suspension (Flonase Allergy Relief) levothyroxine 100 mcg tablet 100 mcg PO QAM #90 tabs 04/24/24 hydrochlorothiazide 12.5 mg tablet 12.5 mg PO QAM PRN edema #30 tabs 04/27/24 metoprolol succinate 25 mg 12.5 mg (1/2 x 25 mg) PO BID #90 06/01/24 tablet,extended release 24 hr tabs digoxin 125 mcg (0.125 mg) tablet 125 mcg PO QAM #30 tabs 07/20/24 tramadol 50 mg tablet 50 mg PO DAILY pain #30 tabs 07/20/24 multivitamin 1 tab PO QAM acetaminophen 650 mg tablet,extended release (Tylenol Arthritis Pain) 650 mg PO UD PRN cholecalciferol (vitamin D3) 50 mcg (2,000 unit) tablet (Vitamin D3) 2,000 unit PO QAM triamcinolone acetonide 0.1 % topical cream 1 applic topical UD PRN montelukast 10 mg tablet (Singulair) 10 mg PO QPM fluticasone propionate 50 mcg/actuation nasal spray,suspension (Flonase Allergy Relief) 1 spray intranasal QAM amoxicillin 500 mg capsule 2,000 mg PO DIRECTED PRN cyanocobalamin (vitamin B-12) 500 mcg tablet (Vitamin B-12) 500 mcg PO HS warfarin 5 mg tablet 5 mg PO QPM levothyroxine 100 mcg tablet 100 mcg PO QAM hydrochlorothiazide 12.5 mg tablet 12.5 mg PO QAM PRN metoprolol succinate 25 mg tablet,extended release 24 hr 12.5 mg (1/2 x 25 mg) PO BID digoxin 125 mcg (0.125 mg) tablet 125 mcg PO QAM tramadol 50 mg tablet 50 mg PO DAILY omega 2-ezx-fwr-fish oil 1,200 mg (144 mg-216 mg) capsule (Fish Oil) 1 cap PO QAM Continue as directed acetaminophen 650 mg tablet,extended release (Tylenol Arthritis Pain) 650 mg PO UD PRN(if needed) amoxicillin 500 mg capsule 2,000 mg PO DIRECTED PRN(if needed) tramadol 50 mg tablet 50 mg PO DAILY ASK your prescriber and surgeon warfarin 5 mg tablet 5 mg PO QPM STOP taking 2 weeks before surgery (or as soon as possible if surgery is within 2 weeks) omega 1-xtk-mrg-fish oil 1,200 mg (144 mg-216 mg) capsule (Fish Oil) 1 cap PO QAM STOP taking 24 hours before surgery triamcinolone acetonide 0.1 % topical cream 1 applic topical UD PRN DO NOT take the morning of surgery multivitamin 1 tab PO QAM cholecalciferol (vitamin D3) 50 mcg (2,000 unit) tablet (Vitamin D3) 2,000 unit PO QAM hydrochlorothiazide 12.5 mg tablet 12.5 mg PO QAM PRN Take morning of surgery With a small sip of water, OTHERWISE NOTHING TO EAT OR DRINK AFTER MIDNIGHT: fluticasone propionate 50 mcg/actuation nasal spray,suspension (Flonase Allergy Relief) 1 spray intranasal QAM levothyroxine 100 mcg tablet 100 mcg PO QAM metoprolol succinate 25 mg tablet,extended release 24 hr 12.5 mg (1/2 x 25 mg) PO BID digoxin 125 mcg (0.125 mg) tablet 125 mcg PO QAM Take evening before surgery montelukast 10 mg tablet (Singulair) 10 mg PO QPM cyanocobalamin (vitamin B-12) 500 mcg tablet (Vitamin B-12) 500 mcg PO HS metoprolol succinate 25 mg tablet,extended release 24 hr 12.5 mg (1/2 x 25 mg) PO BID Other Notes If you have any questions please call us at [phone] or [phone] or [phone] or [phone]
--- NOTE | 2024-08-18 11:39 | Anesthesiology Consultation ---
Date of Service August 18, 2024 Assessment & Plan (1) Encounter for pre-operative examination: - check coags STAT am DOS. - cardiology office visit 06/07/24 [place]: "... acceptable cardiac risk for knee replacement surgery without further testing. Would bridge her Coumadin with Lovenox...stable from cardiovascular standpoint. She demonstrates excellent control of her blood pressure both at home and in the office today. She is tolerating rate control and long-term anticoagulation for paroxysmal atrial flutter without difficulty. Fortunately, there has been no recurrence. Her mechanical mitral valve is functioning properly..." - Outpatient joint assessment: Patient is currently scheduled for inpatient pathway. If re-evaluated and patient/surgeon requests outpatient pathway, patient is not candidate for outpatient joint program from anesthesia standpoint. Chart Review Chart Review: Acceptable Risk for Surgery and Patient seen in Pre Admission Testing Teaching & Discussion Pre-Anesthesia Teaching/Discussion Notes: Instructed NPO after midnight before surgery, except medications with 15 cc of water. Medication instructions provided according to the PAT guidelines. History Surgery Operation Date: 09/06/24 07:00 Proposed Procedures p Left Total Knee Arthroplasty - Phill Quispe MD Height/Weight Height: 5 ft 7 in Weight: 56.6 kg Allergies Allergy/AdvReac Type Severity Reaction Status Date / Time gluten Allergy Intermediate gluten Verified 08/17/24 11:41 allergy/gluten free diet Sulfa (Sulfonamide Allergy Intermediate RASH Verified 08/17/24 11:41 Antibiotics) Medications Home Medications Medication Instructions Recorded Confirmed Last Taken multivitamin 1 tab PO QAM 08/20/18 08/17/24 04/17/24 acetaminophen 650 mg 650 mg PO UD PRN Pain 12/18/19 08/17/24 07/04/21 tablet,extended release (Tylenol Arthritis Pain) cholecalciferol (vitamin D3) 50 2,000 unit PO QAM 12/18/19 08/17/24 04/17/24 mcg (2,000 unit) tablet (Vitamin D3) triamcinolone acetonide 0.1 % 1 applic topical UD PRN Rash 09/17/20 08/17/24 07/01/21 topical cream montelukast 10 mg tablet 10 mg PO QPM 02/15/21 08/17/24 04/16/24 (Singulair) fluticasone propionate 50 1 spray intranasal QAM #9.9 mL 04/01/24 08/17/24 04/17/24 mcg/actuation nasal spray,suspension (Flonase Allergy Relief) amoxicillin 500 mg capsule 2,000 mg PO DIRECTED PRN PRIOR 04/17/24 08/17/24 Unknown TO DENTAL PROCEDURES cyanocobalamin (vitamin B-12) 500 500 mcg PO HS 04/17/24 08/17/24 04/17/24 mcg tablet (Vitamin B-12) warfarin 5 mg tablet 5 mg PO QPM 04/17/24 08/17/24 04/16/24 levothyroxine 100 mcg tablet 100 mcg PO QAM #90 tabs 04/24/24 08/17/24 Unknown hydrochlorothiazide 12.5 mg tablet 12.5 mg PO QAM PRN edema #30 tabs 04/27/24 08/17/24 Unknown metoprolol succinate 25 mg 12.5 mg (1/2 x 25 mg) PO BID #90 06/01/24 08/17/24 Unknown tablet,extended release 24 hr tabs digoxin 125 mcg (0.125 mg) tablet 125 mcg PO QAM #30 tabs 07/20/24 08/17/24 Unknown tramadol 50 mg tablet 50 mg PO DAILY pain #30 tabs 07/20/24 08/17/24 Unknown omega 6-brp-gaz-fish oil 1,200 mg 1 cap PO QAM 08/17/24 08/17/24 Unknown (144 mg-216 mg) capsule (Fish Oil) Additional Notes: Patient states she was advised by PA with surgeon's office that fish oil did not need stopped for 2 weeks. I discussed this with Dr. Cobb who advised instructions on fish oil can be deferred to surgeon's office. Patient verbalized understanding and denied additional questions or concerns. Past Medical History Medical History (Updated 08/18/24 @ 12:08 by Teresa Carpio PA-C) Allergy to gluten Arthritis Atrial flutter Digoxin/Metoprolol Dr Lopez no cardioversion Chronic anticoagulation History of asthma unclear if dx in hx. Pt denies breathing problems, known active dx. No medications. History of blood transfusion several, nikki-operative; during mitral valve replacement, hysterectomy and right TKA History of breast cancer right, 2013, lumpectomy. DCIS History of colon polyps History of COVID-19 2021 & 2023 no issues since History of DIC syndrome s/p MVR surgery 1994 History of pneumonia (04/2024) hospitalized for [facility] 04/17/24-04/20/24. pt denies ongoing sx History of restless legs syndrome Resolved Hypothyroidism IBS (irritable bowel syndrome) Interstitial lung disease per chart review, 'hx of Siegel's lung/hypersensitivity pneumonitis tx at [facility]' 2018 Osteoarthritis Osteopenia Patent foramen ovale PFO suspected per 04/09/23 ECHO. also mentioned in 06/01/23 Cardio note. no me ntion of PFO in 04/2024 ECHO Pulmonary nodule Seasonal allergies Patient denies h/o stroke, seizures, heart attack, heart failure, DM, HTN, or blood clots/DVTs. Exercise / Class Metabolic Activity II 4-5 Yardwork/Stairs/Walk up hill (denies chest discomfort or shortness of breath with one flight of stairs) Past Family History Family History Mother Family hx of colon cancer Osteoarthritis Colorectal cancer Cancer Brother Prostate cancer Son Diabetes Family history of diabetes mellitus Sister Breast cancer Family history of reaction to anesthesia n/v Father Cancer Denies family history of Ovarian cancer Myocardial infarction Stroke Past Surgical History Surgical History History of appendectomy History of arthroscopy Left Knee History of bronchoscopy History of cardiac cath 1994, no stents. Prior to mitral valve replacement. History of carpal tunnel release Left History of cataract surgery Bilateral History of colonoscopy W/polypectomy History of dilation and curettage History of esophagogastroduodenoscopy (EGD) History of lumpectomy of right breast History of partial hysterectomy ovaries remain History of tooth extraction History of total knee replacement Right 2011 Status post mitral valve replacement 2/2 Severe MR. Mechanical mitral valve replacement (1994). On AC with warfarin. Followed by cardiology. History of bypass was in chart, entered 01/2024. Patient states that she has never had cardiac or gastric bypass surgery. She states likely told them she needed bypass machine while having mitral valve replaced. No cardiac bypass/CAD history in [place] cardiology records. Past Anesthesia History No Hx of Anesthesia Complications and No Family Hx of Anesthesia Complications History of PONV No Hx of PONV and No Hx of Motion Sickness Social History Smoking Status: Never smoker Do You Dip or Chew Tobacco: No Hx Alcohol Use: Yes Alcohol type: wine alcohol intake frequency: a few times a week Hx Substance Use: No substance use type: does not use Review of Systems Patient denies chest pain, shortness of breath, dyspnea on exertion, snoring, witnessed apneas, reflux, fever, chills, cough, wheezing, or palpitations. Physical Exam Vital Signs Vitals BP 118/64 P 76 TEMP 97.5 SP02 95% on RA RESP 18 Physical Patient resting comfortably in chair in no acute distress, alert and oriented, responding appropriately throughout visit Full cervical extension range of motion without pain TMD 3.5 finger breadths Mallampati Score 2 Dentition: several crowns; denies chipped or loose teeth, implants or bridges Lungs: normal respiratory effort. Good air movement, clear throughout to auscultation, no adventitious breath sounds Cardiac: regular rate and rhythm, no murmurs noted Carotid arteries: negative bruit bilat Lab Results Anesthesia Preop Results Results Anesthesia Widget: WBC 5.89 K/ul (4.8-10.8) 08/18/24 Hgb 13.6 g/dl (12.0-16.0) 08/18/24 Hct 39.5 % (37.0-47.0) 08/18/24 Plt 183 K/uL (130-400) 08/18/24 Na 140 mmol/L (136-145) 08/18/24 K 4.8 mmol/L (3.5-5.1) 08/18/24 Cl 104 mmol/L (98-107) 08/18/24 CO2 31 mmol/L (21-32) 08/18/24 BUN 14 mg/dl (6-23) 08/18/24 Creat 0.57 mg/dl (0.6-1.2) L 08/18/24 Glucose Level 93 mg/dl (70-99(Fasting)) 08/18/24 PT 26.1 Seconds (9.0-12.0) H 08/18/24 PTT 38 Seconds (21-31) H 08/18/24 INR 2.6 (0.9-1.1) H 08/18/24 Blood Type O Positive 08/18/24 Antibody Screen NEGATIVE 08/18/24 Testing Electrocardiogram Date: 05/24/24 Sinus rhythm with blocked premature atrial complexes, rate 59 bpm Chest X-Ray Date: 05/23/24 No acute cardiopulmonary findings. Resolution of the right lower lobe pneumonia shown on chest CT 04/18/24. Echocardiogram Date: 04/19/24 EF 50-55% Septal motion is consistent with post-operative state Mild cLVH Mechanical mitral valve RVSP is normal Transmitral gradient appears mildly elevated Cervical Spine Date: 01/27/24 Degenerative changes without evidence of acute bony injury.
[2024-09-06] MEDS: GABAPENTIN 300 MG CAP PO SCH (05:52)
[2024-09-06] MEDS: METOCLOPRAMIDE HCL 10 MG TABLET PO SCH (05:52)
[2024-09-06] MEDS: FAMOTIDINE 20 MG TAB PO SCH (05:52)
[2024-09-06] MEDS: ACETAMINOPHEN 500 MG TAB PO SCH ×2 (05:52→13:47)
[2024-09-06] MEDS: traMADol HCL 50 MG TABLET PO SCH (05:52)
[2024-09-06] MEDS: oxyCODONE HCL 10 MG TABCR (OxyCONTIN) PO SCH (05:52)
[2024-09-06] MEDS: LR 500ML BOLUS, THEN 15ML/HR IV SCH (05:53)
[2024-09-06] MEDS: LR 60ML/HR IV SCH (05:53)
[2024-09-06] MEDS: dexAMETHasone**PF** 10 MG/ML VIAL IV SCH (05:53)
[2024-09-06] MEDS ORDERED: MIDAZOLAM HCL 1 MG/ML 2ML VIAL ONE (06:15)
[2024-09-06] MEDS ORDERED: PROPOFOL IV EMULSION 10 MG/ML 20 ML VIAL IV ONE (06:15)
[2024-09-06] MEDS ORDERED: ONDANSETRON INJ 2 MG/ML 2 ML VIAL ONE (06:15)
[2024-09-06] MEDS ORDERED: DEXAMETHASONE SOD INJ 4 MG/ML VIAL ONE (06:15)
[2024-09-06] MEDS ORDERED: BUPIVACAINE 0.5 % 5 MG/1 ML PF 10ML VIAL ONE (06:17)
[2024-09-06] MEDS ORDERED: BUPIVACAINE 0.25% PF 30 ML VIAL ONE (06:18)
[2024-09-06 06:19] LABS: Partial Thromboplastin Ratio 1.1; Partial Thromboplastin Time 29 Seconds (21-31); Prothrombin Time 10.7 Seconds (9.0-12.0)
[2024-09-06] MEDS ORDERED: fentaNYL citrate PF 100 MCG/2 ML VIAL IV PRN (06:35)
[2024-09-06] MEDS ORDERED: ONDANSETRON INJ 2 MG/ML 2 ML VIAL IV PRN ×2 (06:35→11:50)
[2024-09-06] MEDS ORDERED: ePHEDrine sulfate 50 MG/ML AMP IV PRN (06:35)
[2024-09-06] MEDS ORDERED: PROMETHAZINE HCL 6.25 MG in SODIUM CHLORIDE 0.9% 50 ML IV PRN (06:35)
[2024-09-06] MEDS ORDERED: ATROPINE SULFATE 0.1 MG/ML 10ML SYR IV PRN (06:35)
[2024-09-06] MEDS: TRANEXAMIC ACID 1,000 MG **IV Pre-op IV SCH (06:47)
--- NOTE | 2024-09-06 06:48 | History & Physical Bridge Note ---
Date of Service September 06, 2024 History & Physical Bridge Note I have examined the patient, reviewed the History & Physical and in the interval since the performance of the History & Physical I have noted the following changes of clinical significance: no changes noted. PT/INR within normal limits. Her last dose of Lovenox was 24 hours ago. Her skin is clean.
[2024-09-06] MEDS: ceFAZolin 2000MG 2,000 MG/15 ML SYR IV SCH ×2 (07:00→17:51)
[2024-09-06] MEDS ORDERED: PHENYLEPHRINE 100MCG/ML 5ML SYR ONE (07:24)
[2024-09-06] MEDS: ORTHO JOINT ANESTHETIC ONE (07:52)
[2024-09-06] MEDS ORDERED: ePHEDrine sulfate 50 MG/5 ML SYR ONE (08:08)
[2024-09-06] MEDS: VANCOMYCIN HCL 1000MG/20ML VIAL ONE (09:30)
[2024-09-06] MEDS: ROPIV 0.5% 246mg, Ketorolac 30mg, EPINEPHrine 0.5mg in NSS INFIL SCH (09:45)
--- NOTE | 2024-09-06 10:44 | Operative Report ---
Post Operative Report Pre & Post Diagnosis Operation Date: 09/06/24 07:00 Pre-Op Diagnosis: Left Knee Osteoarthritis Post-Op Diagnosis: Left Knee Osteoarthritis I identified the patient and participated in the time-out.: Yes Procedure Operation Date: 09/06/24 07:00 Actual Procedures p Left Total Knee Arthroplasty(Left) - Phill Quispe MD Surgeon Phill Quispe MD Voltage Inspector Emma Mccauley physicians assistant casino shift manager no resident or fellow available Estimated Blood Loss 5 Findings Consistent with Post-Op Diagnosis Specimens Resected bone and soft tissue left knee Anesthesia Type MAC Spinal Regional Complications none Disposition Accompanied Patient To Recovery: No Disposition: Recovery Room Indications Julieta is 74. She has left knee lateral compartment arthritis refractory to nonsurgical treatment. She wishes to have her knee replaced. She is status post a successful contralateral knee replacement 12 years ago Description of Procedure Informed consent. Patient identified. She identified the procedure site as the left knee. I marked with my initials. A preoperative surgical Tammam Agueda is performed and a preop dose of IV antibiotics was given. She was taken to the operating room positioned supine on the OR table. A tourniquet was applied to the left thigh. The leg was then prepped and draped in the usual sterile fashion. DVT prophylaxis intraoperatively with mechanical devices. Postop early mobility mechanical devices and anticoagulation. She is on chronic Coumadin for a heart condition. Consultation with primary care and cardiology has been done preoperatively. Her Coumadin has been stopped approximately 1 week prior to surgery. Her INR today is within normal limits. She was placed on bridging Lovenox. Last dose was 24 hours prior to surgery. She is taking 60 mg twice daily. The exam under anesthesia revealed full extension and flexion to approximately 135 degrees. Intact Primo posterior drawer. Stable to varus and valgus at 0 and 20 degrees. No significant lateral sided laxity. Negative effusion. TXA given. The limb was exsanguinated with the Esmarch. Tourniquet plated to 250 and then later 275 mmHg. A midline longitudinal incision was made followed by medial parapatellar arthrotomy. The retropatellar fat pad was resected and a minimal medial release was performed. Enough to subluxate the knee. The synovial layer in the lateral gutter was released. Soft tissue on the anterior aspect the distal femur was resected. The knee was flexed and the patella was everted. There was significant arthrosis on the medial facet of the patella grade 4 changes. This was over the medial facet area. The remainder of the patella had grade 2 and 3 changes. Marginal osteophytes throughout the knee were debrided and mainly encountered in the lateral compartment. Osteophytes underneath the collateral ligaments were excised. The medial meniscus was deficient. She had had prior surgery. The AC L and PCL were intact and were removed. The lateral compartment showed intact cartilage towards the extended position however from about 45 degrees flexion back towards 90 there was no cartilage on the femur. Diffuse grade 4. On the tibia there was a central wear without significant bone loss but grade 4 change centrally. The lateral meniscus was partially absent due to prior surgery. The cruciate ligaments were excised and the meniscal remnants were removed. The tibial plateau was exposed. I drilled airplane pilot commercial hole into the proximal tibia in front of and between the tibial spines. An intramedullary alignment chidi was inserted and the guide was set to resect 8 mm off the medial side corresponding to a 6 mm cut medially. The guide was pinned and placed. 3 degree posterior slope. The alignment was then checked with the extra medullary alignment chidi with the leg in extension. This intersected the second ray had slight posterior slope and bisected the ankle joint. The cut was made and sized to a 3 possibly a 4 tibia. The 3 gave better adjustability. Lateral osteophytes were removed off the tibia and femur. I then drilled a airplane pilot commercial hole into the distal femur just above the PCL. Of note the femoral and tibial morphology were outliers. The tibial plateau seems to be bigger posteromedial. There was lateral femoral condylar hypoplasia with a wide intercondylar notch and a narrow medial femoral condyle. The guide was pinned in the place and set at 5 degree left knee valgus based upon preoperative templating with a 11 mm thick cut. The cut was made protecting the collateral ligaments. The extension gap was asymmetric. It could fit a 5 or 6 mm spacer medially but would not except a 5 mm laterally. I then did an inverted cruciform release. The patellar tendon and LCL were protected. I went ahead and made a longitudinal split in the lateral tissues i.e. the IT band and then transversely incised that back to the level of the LCL and anteriorly to the level of the patellar tendon. This improved laxity slightly but did not relieve it. I then went ahead and pie crusted the LCL and popliteus with a 22-gauge spinal needle with minimal improvement. I went ahead and applied the distal femoral sizing guide. It was sized to a 5 off of the lower side. Prior to this the epicondylar axis was marked out. Care was taken due to the hypoplasia of the lateral femoral condyle. I carefully assessed femoral rotation based upon my transepicondylar axis and found that it was true. I additionally checked my flexion gap which was rectangular. This guide was pinned in the place and the anterior posterior and chamfer cuts were then made. Osteophytes on the posterior aspect of the lateral femur were excised. The posterior lateral capsule off of the tibia was released. At this point I had both an asymmetric flexion and extension gap. I could likely except at least a 5 or 6 medially but could not get it in laterally. I then went ahead and released about a quarter of the LCL off of the lateral epicondylar area. This resulted in symmetric rectangular flexion gaps which I could apply at least a 5 spacer and perhaps I can go up to a 6. The box cutting guide was applied to the feet femur lateralized to the lateral cortical margin and then after pinning it in place that cut was made. Trial femur was applied. Fit well lug holes drilled. I elected to proceed with the size 3 tibia. It was aligned to the tubercle and lateralized is much as possible which really was not much because it abutted the cortical surface anteromedially. The keel was prepared with the drill and punch and trialing was then performed with a size 5 spacer which gave excellent range of motion. Slight patellar lift off. Full extension neutral alignment. The patella measured 23 mm in thickness. The guide was set to preserve 15 mm of bone. The cut was made and the residual patellar thickness was 15 mm. The 35 patella was applied and aligned to the knee with the patella and its [place] position and in slight flexion. Aligned for coverage. Lug holes were drilled. Patellar tracking showed slight lift off with the no hands technique. I went ahead and removed the trial implants. The tibial canal was plugged. The knee was copiously irrigated and Ortho joint mix was injected into the back of the knee. 2 bags of Simplex P cement were mixed and then while in a doughy state smears were applied to the posterior femoral condyles. The components were then cemented in place femur tibia and patella. The knee was held in full extension with a 5 mm spacer until the cemented hardened. Tourniquet was then let down after 125 minutes of inflation. There is no significant bleeding. The knee was reirrigated and the Ortho joint mix was injected while the cement was hardening. Trialing was again performed with the size 5 mm and 6 mm thick spacer. 6 mm thick spacer gave full extension with no varus valgus laxity. In mid position there was trace LCL laxity which was improved with the 6 mm spacer versus the 5. At 90 degrees there was no laxity on either side. The final with 6 mm thick polyethylene insert was applied. The back the knee was inspected for cement and bleeding and addressed as encountered. Patellar tracking with the tourniquet down was fine with no hands technique. About a third of a gram of vancomycin was applied intra-articularly. Another third in the subcutaneous tissues at wound closure. The arthrotomy was closed with interrupted #2 FiberWire above the equator the patella and interrupted and running #1 Vicryl below. The skin was closed in layers with 0 and 2-0 Vicryl followed by henrietta on the skin. The leg was cleaned with wet and dry sponges and a saw sterile dressing was applied Xeroform 4 x 4's ABD soft wrap Marek wrap knee immobilizer. Patient awakened from anesthesia without difficulty and taken to the recovery room in stable condition. There were no complications. Counts were correct blood loss was estimated to be 5 cc. Resected bone and soft tissue of the left knee was sent for specimen. The lateral compartment bone was eburnated and drilled on the posterolateral tibial plateau and the lateral femur as necessary for cement interdigitation. Rehab according to the standard total knee protocol. Weight-bear as tolerated. Components inserted with the J&J attune knee a size 5 posterior stabilized left femur a size 3 mobile-bearing keeled tibial tray a 35 mm 3 peg oval dome medialized patella and a size 5 x 6 mm thick polyethylene insert. I attest to the content of the Intraoperative Record and any orders documented therein. Any exceptions are noted below.
--- NOTE | 2024-09-06 10:45 | Operative Report ---
Post Operative Report Pre & Post Diagnosis Operation Date: 09/06/24 07:00 Pre-Op Diagnosis: Left Knee Osteoarthritis Post-Op Diagnosis: Left Knee Osteoarthritis I identified the patient and participated in the time-out.: Yes Procedure Operation Date: 09/06/24 07:00 Actual Procedures p Left Total Knee Arthroplasty(Left) - Phill Quispe MD Surgeon Phill Quispe MD Overlock Collar Setter Emma Mccauley PA-C; no fellow or resident available Estimated Blood Loss 5 Findings Consistent with Post-Op Diagnosis Specimens Bone or soft tissue Anesthesia Type MAC Spinal Regional Description of Procedure Patient was taken to the operating room and placed under IV sedation with spinal anesthesia and peripheral nerve block. She was given 2 g of IV Ancef for surgical prophylaxis. She was given 1 g of IV TXA preoperatively. Time out was performed. She was prepped and draped in routine sterile fashion. I was presen t during the entire case. Please see Dr. Quispe's operative report for further details regarding today's procedure. Patient was awakened and transferred to the recovery room in stable condition. I attest to the content of the Intraoperative Record and any orders documented therein. Any exceptions are noted below.
--- NOTE | 2024-09-06 11:03 | Anesthesiology Progress Note ---
Date of Service September 06, 2024 Anesthesia Post Procedure Vital Signs Vital Signs: Temp Pulse Pulse Resp BP Pulse Ox O2 Del Method 09/06/24 10:55 78 14 126/51 L 93 Room Air 09/06/24 10:45 78 19 110/55 L 92 Room Air 09/06/24 10:35 79 15 127/58 L 94 Room Air 09/06/24 10:27 82 17 132/65 96 Room Air 09/06/24 05:35 36.9 C 74 18 143/60 H 98 Room Air Transfer of Care Handoff Completed per policy Notes Mental Status: alert / awake / arousable and participated in evaluation Patient Amnestic to Procedure: Yes Nausea / Vomiting: adequately controlled Pain: adequately controlled Airway Patency, RR, SpO2: stable & adequate BP & HR: stable & adequate Hydration State: stable & adequate Anesthetic Complications: no major complications apparent and Pt Satisfied with anesthetic care Notes: Noted slight ST depression in lead II in recovery. Patient at that time completely awake and conversant. Denied any chest pain/pressure/SOB/dizziness/vision changes. She is sitting upright in bed and spinal block has worn off to the point that she is easily able to move her lower extremities. HR in 70's and normal sinus. BP normal. Oxygen levels mid 90's on RA. Briefly spoke with oncall cardiology to discuss an ECG that I did in recovery that showed some ST and T wave abnormalities. Given normal vital signs, no concerning complaints (chest pain/etc), no hx/o CAD, both feel this is low risk to be ischemic changes. Patient made aware and had all questions answered. She knows to reach out to nursing or her primary team providers with any changes to include the above mentioned s/s. Can consider ECG later today/tomorrow morning to see if there are any changes when compared to this ECG.
[2024-09-06] MEDS ORDERED: NALOXONE HCL 0.4 MG/1 ML VIAL/CARP IV PRN (11:50)
[2024-09-06] MEDS ORDERED: bisacodyL 10 MG SUPP PR PRN (11:50)
[2024-09-06] MEDS ORDERED: MAGNESIUM HYDROXIDE SUSP 30 ML UDC PO PRN (11:50)
[2024-09-06] MEDS ORDERED: HYDROmorphone INJ 0.5 MG/0.5 ML SYR IV PRN (11:50)
[2024-09-06] MEDS ORDERED: HYDROmorphone INJ 1 MG/ML SYRINGE IV PRN (11:50)
[2024-09-06] MEDS ORDERED: TRIAMCINOLONE ACET 0.1% CR 15 GM TUBE TOP PRN (11:50)
[2024-09-06] MEDS ORDERED: hydroCHLOROthiazide 25 MG TAB PO PRN (11:50)
[2024-09-06] MEDS ORDERED: oxyCODONE HCL IR 5 MG TAB (IMMEDIATE RELEASE) PO PRN (11:50)
[2024-09-06] MEDS: KETOROLAC TROMETHAMINE 15 MG/ML VIAL IV SCH (12:49)
--- NOTE | 2024-09-06 14:14 | XRay Report ---
XR knee LT 1 or 2V routine CLINICAL HISTORY: Surgical Post Op TECHNIQUE: 2 views of the left knee were obtained. Comparison: Comparison is made to knee radiographs 08/18/2024 FINDINGS: Patient is status post total knee arthroplasty with expected postsurgical changes including soft tiss ue swelling and subcutaneous emphysema. No periarticular lucency or hardware fracture is seen. IMPRESSION: Expected postoperative appearance status post placement of total knee arthroplasty. ACT 112: Negative or not required by law. Electronically signed by: Javier Cortez M.D. 09/06/2024 2:13 PM
--- NOTE | 2024-09-06 17:06 | Orthopedic Progress Note ---
Date of Service September 06, 2024 Assessment & Plan (1) Status post knee replacement: Plan: X-rays show good alignment of the components with no evidence of complication. She is stable postoperatively. Routine pain control postop antibiotics. Elevated on 2 pillows. Spoke with nurse. She will be up this evening with knee immobilizer on. PT and OT tomorrow. Admission and Anticipated Discharge Date Admission Date: September 06, 2024 Subjective Transferred to telemetry because of postoperative EKG findings. Discussed with Dr. Beck. He had talked with cardiology. Monitor her symptoms and recheck an EKG in the morning. I will talk to cardiology at that point. Patient informed of of plan. Her pain is well-controlled. She is not having any chest pains shortness of breath or palpitations. Physical Exam Physical Exam: Dressing is clean and dry. She can do an active straight leg raise. DP and PT pulses are 1+ with intact sensation and 5 out of 5 ankle and toe plantarflexion dorsiflexion and eversion strength. Results & Data Vital Signs (Past 12 Hours) Vital Signs Temp Pulse Pulse Resp BP Pulse Ox O2 Del Method 09/06/24 16:42 36.3 C L 90 16 105/61 96 Room Air 09/06/24 14:40 36.4 C L 76 17 105/61 96 Room Air 09/06/24 13:40 36.4 C L 77 17 114/78 97 Room Air 09/06/24 12:40 36.4 C L 82 17 119/71 98 Room Air 09/06/24 12:20 36.4 C L 88 17 108/63 93 Room Air 09/06/24 11:40 36.4 C L 79 17 114/71 95 Room Air 09/06/24 11:25 72 20 121/48 L 96 Room Air 09/06/24 11:15 76 20 119/38 L 93 Room Air 09/06/24 11:05 36.4 C L 75 12 126/56 L 92 Room Air 09/06/24 10:55 78 14 126/51 L 93 Room Air 09/06/24 10:45 78 19 110/55 L 92 Room Air 09/06/24 10:35 79 15 127/58 L 94 Room Air 09/06/24 10:27 82 17 132/65 96 Room Air 09/06/24 05:35 36.9 C 74 18 143/60 H 98 Room Air
[2024-09-06] MEDS: TRANEXAMIC ACID / 0.7% NACL 1,000 MG/100 ML BAG IV SCH (17:22)
[2024-09-06] MEDS: WARFARIN SOD 5 MG TAB PO SCH (17:56)
--- NOTE | 2024-09-06 18:21 | Electrocardiogram Report ---
Test Reason : Blood Pressure : */* mmHG Vent. Rate : 80 BPM Atrial Rate : 80 BPM P-R Int : 196 ms QRS Dur : 84 ms QT Int : 344 ms P-R-T Axes : 92 25 262 degrees QTcB Int : 396 ms Normal sinus rhythm Abnormal ECG When compared with ECG of 24-May-2024 07:14, Premature atrial complexes are no longer Present T wave inversion now evident in Inferior leads T wave inversion now evident in Lateral leads Confirmed by Zoran Diop ([id number]) on 09/06/2024 6:20:53 PM Referred By: Phill Quispe Confirmed By: Zoran Diop
[2024-09-06] MEDS: traMADol HCL 50 MG TABLET PO PRN (20:04)
[2024-09-06] MEDS: DOCUSATE SODIUM 100 MG CAP PO SCH (20:05)
[2024-09-06] MEDS: MONTELUKAST SODIUM 10 MG TABLET PO SCH (20:06)
[2024-09-06] MEDS: SENNA 8.6 MG TAB PO SCH (20:06)
[2024-09-06] MEDS: CYANOCOBALAMIN (B-12) 500 MCG TABLET PO SCH (20:06)
[2024-09-06] MEDS: METOPROLOL SUCC 25MG EXT REL TAB PO SCH (20:07)
[2024-09-06 23:24] VITALS: TEMP 97.7
[2024-09-07] MEDS: LEVOTHYROXINE SODIUM 100 MCG TABLET PO SCH (05:53)
[2024-09-07 06:50] LABS: Hematocrit (blood only) 29.7 % (37.0-47.0); Hemoglobin 10.4 g/dl (12.0-16.0); Mean Corpuscular Hemoglobin 33.2 pg (25.0-34.0); Mean Corpuscular Volume 94.9 fL (80.0-100.0); Mean Platelet Volume 10.4 fL (9.4-12.4); Platelet Count 162 K/uL (130-400); RDW Coefficient of Variation 14.3 % (11.5-14.5); RDW Standard Deviation 49.4 fL (36.4-46.3); Red Blood Count 3.13 M/uL (4.20-5.40); White Blood Count 14.85 K/ul (4.8-10.8)
[2024-09-07 07:06] LABS: BUN Creatinine Ratio 21.3 (10-20); Calcium 8.7 mg/dl (8.6-10.3); Creatinine Clr Calc Pharmacy 57.6 ml/min; Potassium 4.4 mmol/L (3.5-5.1)
[2024-09-07 07:08] LABS: Prothrombin Time 10.8 Seconds (9.0-12.0)
[2024-09-07 07:45] VITALS: BP 108/56; RESP 16; O2SAT 96
[2024-09-07] MEDS: CHOLECALCIFEROL 25 MCG (1000 UNITS) TAB PO SCH (08:01)
[2024-09-07] MEDS: dexAMETHasone 4 MG TAB PO SCH (08:02)
[2024-09-07] MEDS: ENOXAPARIN INJ 60 MG/0.6 ML SYR SQ SCH (08:03)
[2024-09-07] MEDS: DIGOXIN 0.125 MG TAB PO SCH (08:03)
[2024-09-07] MEDS: OMEGA-3 (PURIFIED FISH OIL) 1 GM CAP PO SCH (08:04)
[2024-09-07] MEDS: MULTIVITAMIN TAB PO SCH (08:04)
--- NOTE | 2024-09-07 08:44 | Electrocardiogram Report ---
Test Reason : Blood Pressure : */* mmHG Vent. Rate : 77 BPM Atrial Rate : 77 BPM P-R Int : 158 ms QRS Dur : 92 ms QT Int : 348 ms P-R-T Axes : 92 29 211 degrees QTcB Int : 393 ms Normal sinus rhythm Abnormal ECG When compared with ECG of 06-Sep-2024 10:42, No significant change was found Confirmed by Zoran Diop ([id number]) on 09/07/2024 8:44:07 AM Referred By: Phill Quispe Confirmed By: Zoran Diop
[2024-09-07] MEDS: FLUTICASONE PROPIONATE NA SPR 16 GM BTL NAE SCH (09:23)
--- NOTE | 2024-09-07 09:30 | Discharge Summary ---
Date of Service September 07, 2024 Discharge Data Procedures Performed Operation Date: 09/06/24 07:00 Actual Procedures p Left Total Knee Arthroplasty(Left) - Phill Quispe MD Hospital Course (1) Status post knee replacement: Patient was kept in observation at [facility] after undergoing an elective left total knee arthroplasty with Dr. Quispe on September 06, 2024. Her surgery was performed with IV sedation and spinal anesthesia. She was given 2 g of IV Ancef which was continued for 24 hours after surgery. She was also given 1 g of IV TXA for bleeding prophylaxis preoperatively which was repeated 6 hours after that initial dose. She tolerated her surgery well without any intraoperative complications. She was transferred to the recovery room. In the recovery room ST depression in lead II was noted on the monitor. At that time she was completely awake and conversant. She is nasal chest pain, pressure, shortness of breath, dizziness, vision changes. Her heart rate was in the 70s and normal sinus. Her blood pressure was normal. Her oxygen levels were mid 90s on room air. Anesthesiology talk to the continuous improvement engineer on-call with these ST and T wave abnormalities. It was determined that given normal vital signs and no concerning complaints we continue to monitor her and repeat the EKG later today or the next day. She was transferred to a [facility] bed with telemetry due to these EKG changes. Over the last 24 hours she has not had any symptoms such as chest pain, pressure, shortness of breath, dizziness or vision changes. Her vital signs have remained stable. Her blood pressure has remained normal. She denies any nausea or vomiting. Denies any abdominal pain. She has been out of bed with nursing ambulating in the briggs into the bathroom. She denies any significant pain in her left knee. Pain she does have is controlled well on oral pain medication. She was provided with IV Toradol, tramadol, oxycodone, Tylenol, IV Dilaudid for postoperative pain. Physical therapy and Occupational Therapy consults were placed. She will be seen again by them on postoperative day 1 to determine safety for discharge to home. She was provided knee immobilizer to use when out of bed for the first 2 to 4 days after surgery. She was allowed to weight-bear as tolerated on her left leg with a walker. Encouraged ice and elevation. The postoperative dressings were left in place. Her home medications were continued. She was provided with thigh-high SAAD stockings and AV impulse boots for DVT prophylaxis during her inpatient stay. Her Coumadin was resumed 5 mg tablet on 09/06/2024 as instructed by cardiology. Her Lovenox bridge was continued on September 07 at 60 mg p.o. twice daily. She is to use a Lovenox bridge until her INR is greater than 2.2. Her postoperative day 1 labs show an elevated W BC suggestive of of the Decadron doses as well as the surgery. Mild drop in hemoglobin and hematocrit suggestive with acute blood loss anemia. Will continue to monitor no need for blood transfusions and currently asymptomatic. Sodium level was 134 BUN and creatinine were normal. She had her EKG on postoperative day 1 which continued to show the same changes and cardiology was to review. She had her repeat EKG which showed similar changes albeit asymptomatic. Dr. Diop was covering for Dr. Lopez, he reviewed the EKG, ordered an Echocardiogram, which was normal. She also had a troponin which was normal. Her INR was 1.0. She was deemed safe for discharge to home by the continuous improvement engineer as well as her physical therapist and occupational therapist. She will follow-up as scheduled with Dr. Quispe. Discharge instructions were reviewed. All questions were answered.
--- NOTE | 2024-09-07 10:41 | Orthopedic Progress Note ---
Date of Service September 07, 2024 Assessment & Plan (1) Status post knee replacement: Plan: Findings discussed with patient. We will see how she does with PT and OT this morning and what her pain level is. She will also need to be seen by cardiology. If she were to be discharged we talked about follow-up, activity level, home therapy, her anticoagulation plan. We discussed things to watch out for. She was started on 5 mg of Coumadin last night and will continue that. Her Lovenox 60 mg SQ twice daily started this morning. EKG today showed no significant change compared to yesterday.She is asymptomatic.We talked about her pain medication management plan. Wound care bathing follow-up. Admission and Anticipated Discharge Date Admission Date: September 06, 2024 Subjective She feels well. Her left knee pain is well-controlled. She has been up ambulating with nursing. She has not had any chest pains palpitations or short ness of breath. The nurse reports that she was normal sinus rhythm on the monitor overnight. Physical Exam Physical Exam: Her dressing is clean and dry. She is able to do an active straight leg raise with minimal lag. DP and PT pulses are 1+. Sensation intact she has 5 out of 5 ankle and toe plantarflexion dorsiflexion and eversion strength. Swelling in the foot is minimal to absent Results & Data Vital Signs (Past 12 Hours) Vital Signs Temp Pulse Pulse Resp BP Pulse Ox O2 Del Method 09/07/24 08:03 75 09/07/24 07:45 36.5 C 75 16 108/56 L 96 Room Air 09/07/24 07:11 83 09/07/24 03:04 36.5 C 77 18 104/50 L 93 Room Air 09/07/24 00:44 103/51 L 09/06/24 23:23 36.5 C 74 18 91/49 L 93 Room Air 09/06/24 22:57 Room Air Laboratory Results Laboratory Results WBC 14.85 K/ul (4.8-10.8) H 09/07/24 06:26 RBC 3.13 M/uL (4.20-5.40) L 09/07/24 06:26 Hgb 10.4 g/dl (12.0-16.0) L 09/07/24 06:26 Hct 29.7 % (37.0-47.0) L 09/07/24 06:26 MCV 94.9 fL (80.0-100.0) 09/07/24 06:26 MCH 33.2 pg (25.0-34.0) 09/07/24 06:26 MCHC 35.0 g/dL (32.0-36.0) 09/07/24 06:26 RDW Std Deviation 49.4 fL (36.4-46.3) H 09/07/24 06:26 RDW Coeff of Aracelis 14.3 % (11.5-14.5) 09/07/24 06:26 Plt Count 162 K/uL (130-400) 09/07/24 06:26 MPV 10.4 fL (9.4-12.4) 09/07/24 06:26 PT 10.8 Seconds (9.0-12.0) 09/07/24 06:26 INR 1.0 (0.9-1.1) 09/07/24 06:26 APTT 29 Seconds (21-31) 09/06/24 05:28 PTT Ratio 1.1 09/06/24 05:28 Sodium 134 mmol/L (136-145) L 09/07/24 06:26 Potassium 4.4 mmol/L (3.5-5.1) 09/07/24 06:26 Chloride 101 mmol/L (98-107) 09/07/24 06:26 Carbon Dioxide 27 mmol/L (21-32) 09/07/24 06:26 Anion Gap 6 (3-11) 09/07/24 06:26 BUN 17 mg/dl (6-23) 09/07/24 06:26 Creatinine 0.80 mg/dl (0.6-1.2) 09/07/24 06:26 Est Cr Clr Drug Dosing 57.6 ml/min 09/07/24 06:26 eGFR 77.75 09/07/24 06:26 BUN/Creatinine Ratio 21.3 (10-20) H 09/07/24 06:26 Glucose 111 mg/dl (70-99(Fasting)) H 09/07/24 06:26 Calcium 8.7 mg/dl (8.6-10.3) 09/07/24 06:26 Troponin I High Sens 6.0 pg/ml (0-14) 09/07/24 06:26 Impressions Knee X-Ray 09/06/24 10:37 XR knee LT 1 or 2V routine CLINICAL HISTORY: Surgical Post Op TECHNIQUE: 2 views of the left knee were obtained. Comparison: Comparison is made to knee radiographs 08/18/2024 FINDINGS: Patient is status post total knee arthroplasty with expected postsurgical changes including soft tissue swelling and subcutaneous emphysema. No periarticular lucency or hardware fracture is seen. IMPRESSION: Expected postoperative appearance status post placement of total knee arthroplasty. ACT 112: Negative or not required by law. Electronically signed by: Javier Cortez M.D. 09/06/2024 2:13 PM
--- NOTE | 2024-09-07 10:42 | XCELERA ---
[id number]
[2024-09-07 14:16] VITALS: PULSE 74
== END 2024-09-07 16:25 | disposition home health service (06) ==
LOC: 3E 05:09 → ASU 05:09 → 2W 16:07

== ENCOUNTER 2024-09-19 03:39 | Inpatient (IN) ==
[2024-09-19] MEDS: HYDROmorphone INJ 1 MG/ML SYRINGE ONE (04:05)
[2024-09-19] MEDS: ONDANSETRON INJ 2 MG/ML 2 ML VIAL ONE (04:05)
[2024-09-19] MEDS: HYDROmorphone INJ 1 MG/ML SYRINGE IV STA (04:20)
[2024-09-19] MEDS: ONDANSETRON INJ 2 MG/ML 2 ML VIAL IV STA (04:21)
[2024-09-19 04:23] LABS: Basophils # (auto) 0.06 K/uL (0.00-0.20); Basophils % (auto) 0.4 %; Eosinophils # (auto) 0.19 K/uL (0.00-0.50); Eosinophils % (auto) 1.4 %; Hematocrit (blood only) 26.1 % (37.0-47.0); Hemoglobin 8.7 g/dl (12.0-16.0); Immature Granulocytes # (auto) 0.26 K/uL (0.01-0.20); Immature Granulocytes % (auto) 1.9 %; Lymphocytes # (auto) 1.09 K/uL (1.20-3.40); Lymphocytes % (auto) 7.8 %; Mean Corpuscular Hemoglobin 33.1 pg (25.0-34.0); Mean Corpuscular Hgb Conc 33.3 g/dL (32.0-36.0); Mean Corpuscular Volume 99.2 fL (80.0-100.0); Monocytes # (auto) 1.33 K/uL (0.11-0.59); Monocytes % (auto) 9.5 %; Platelet Count 440 K/uL (130-400); RDW Coefficient of Variation 16.7 % (11.5-14.5); RDW Standard Deviation 58.1 fL (36.4-46.3); Red Blood Count 2.63 M/uL (4.20-5.40); White Blood Count 13.93 K/ul (4.8-10.8)
--- NOTE | 2024-09-19 04:33 | Emergency Department Note ---
Impression & Plan Acute pain of left knee, Anemia Admit to the [facility] and consult orthopedic surgery ED Provider Note NAME: PETEY NAVARRO AGE: 74 SEX: Female INFORMANT: Patient ED PROVIDER(S): Jennifer Valenzuela DO CHIEF COMPLAINT: Left knee pain PLAN: Disposition: Admit to the [facility] and consult orthopedic surgery MEDICAL DECISION MAKING: this is a 74-year-old female patient who presents to the emergency department with severe left knee pain. Patient underwent a total knee replacement approximately 12 days ago. She had been doing fairly well with the post surgical course. She had only been intermittently taking tramadol as needed for pain. Her explained that the swelling had significantly diminished and she she was feeling well until around 8 PM this evening when she had a sudden onset of severe pain in the left knee and there was significant swelling noted. She took a dose of tramadol. The pain continued to worsen to the point that it was unbearable. She tried taking a second dose of tramadol around 2 AM but the pain was severe and she came here for evaluation. Plain x-rays show no acute abnormality. The patient is requiring multiple doses of IV opioid analgesia to maintain any type of pain relief. Patient's INR is 4.0. Hemoglobin has dropped from 10 to 8. I am concerned for the possibility of a left knee hemarthrosis. I have ordered the patient have a CT scan of the left knee. I discussed the case with the [facility] as the patient will require admission to the hospital for pain management and orthopedics consultation. 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 Triage Nursing notes: reviewed and agree With them. Vital Signs: reviewed and unremarkable Additional History obtained from: is at the bedside Chronic Medical/Social Conditions affecting care: Patient is on chronic anticoagulation-Coumadin Differential Diagnosis: postsurgical hematoma, postsurgical abscess, joint effusion Diagnostics, independently interpreted by me: Imaging studies: Left knee x-ray: Significant tuft soft tissue swelling but no obvious significant joint effusion according to radiology CT scan of the left knee: Pending HPI: 74 year old Female arrives for evaluation of severe knee pain. Patient underwent left knee replacement on September 06. She has had a normal postoperative course. She was doing well and much of the swelling had resolved according to the patient and her . She was actually feeling so well that she had dinner with friends trina. Around 8 PM, she had a very sudden onset of severe pain in the left knee. She took tramadol with no relief. She took a second tramadol at 2 AM, again with no relief. She denies any trauma to the knee. The patient does take Coumadin chronically and was due to check her INR today.. PAST MEDICAL HISTORY: See Below, PAST SURGICAL HISTORY: See Below, SOCIAL HISTORY: See Below, HOME MEDICATIONS: See list ALLERGIES: See list VITALS: See Below PHYSICAL EXAMINATION: General: The patient is extremely uncomfortable on my exam. She finds it difficult to sit still. HEENT: Head - normocephalic and atraumatic. Pupils are equal, round, and reactive to light. Extraocular eye muscles are intact, and sclera are anicteric. Nose - moist nasal mucosa without discharge. Mouth - moist buccal mucosa. Oropharynx is nonerythematous and there is no tonsillar exudate or edema noted. Neck: Supple; no cervical lymphadenopathy Heart: Regular rate and rhythm. There is a normal S1 and S2 with no murmurs, clicks, or gallops appreciated. Lungs: Clear to auscultation bilaterally with no wheezes, rales, or rhonchi. Abdomen: Soft, completely nontender, nondistended, with good bowel sounds. There are no palpable pulsatile masses or hepatosplenomegaly. There is no guarding, rigidity, or rebound noted. Extremities: Left lower extremity reveals significant resolving ecchymosis about most of the leg. The left knee is edematous with sutures in place. It is not warm to the touch or erythematous. It is exquisitely tender to palpation. Skin: Extremely pale, warm and dry with good turgor and no rashes. Emergency department treatment: IV Dilaudid, IV Zofran, IV Dilaudid, IV Dilaudid Emergency department course: The patient was evaluated in room C-3. A complete history and physical was performed. IV lock was initiated and labs were drawn as above. Patient was given a dose of IV Dilaudid and IV Zofran. Ice was applied to the knee. Patient had plain films of the left knee. I reviewed some results with the patient and her . She was given a second dose of IV Dilaudid. I discussed the case with the [facility] Hospitalist and they will evaluate for further inpatient care. The patient was typed and screened. She will go for CT scan of her left knee. She was given a third dose of IV Dilaudid. Past Med/Surg History Problem List (Updated 09/19/24 @ 06:41 by Sean Almazan MD) Anemia (Acute) Acute pain of left knee (Acute) Hemarthrosis of left knee Atrial flutter Digoxin/Metoprolol Dr Lopez no cardioversion Pain and swelling of left knee Status post left knee replacement Constipation (Acute) Status post knee replacement Osteoarthritis of left knee Heterogeneously dense tissue of both breasts on mammography Family history of malignant neoplasm of breast Tachycardia (Acute) Arthritis Dense breast tissue Vitamin B12 deficiency Tubular adenoma of colon Abnormal celiac antibody panel Elevated anti-tissue transglutaminase (tTG) IgA level IBS (irritable bowel syndrome) Family history of colon cancer History of colon polyps HX: breast cancer RT BREAST (SURGERY ONLY) DCIS Frequent loose stools Chronic anticoagulation Palpitations Patent foramen ovale Health care maintenance Dupuytrens contracture (Acute) Generalized osteoarthritis (Chronic) S/p R total knee replacement. Pain associated with the hands. Primarily taking tramadol for pain. Avoidance of NSAIDs given on AC with warfarin. Has also received corticosteroid injections in the past via ortho. Working on tapering tramadol Osteopenia (Chronic) DEXA (02/25) demonstrating lowest T-score -1.3 right femur neck. Currently treated with Vit D supplementation. Hypothyroidism (Chronic) Maintained on levoythyroxine and has remained stable Hypersensitivity pneumonitis (Chronic) Recurrent episodes of prolonged flu like illness x2. Seen by pulm. BAL performed (2018) with neutrophilic and lymphocytic alveolitis. Currently on prednisone taper S/P mitral valve replacement (Chronic) 2/2 Severe MR. Mechanical mitral valve replacement (). On AC with warfarin. Followed by cardiology. Medical History (Updated 09/19/24 @ 16:43 by Jennifer Valenzuela DO) Atrial flutter dx 04/2024; started on meds; scheduled for cardioversion 05/24/24 History of blood transfusion several, nikki-operative; during mitral valve replacement, hysterectomy and right TKA Allergy to gluten Hypothyroidism Chronic anticoagulation Pulmonary nodule History of COVID-19 2021 & 2022 no issues since Patent foramen ovale PFO suspected per 04/09/23 ECHO. also mentioned in 06/01/23 Cardio note. no mention of PFO in 04/2024 ECHO Osteoarthritis Osteopenia History of breast cancer right, 2012, lumpectomy. DCIS IBS (irritable bowel syndrome) History of colon polyps Interstitial lung disease per chart review, 'hx of Siegel's lung/hypersensitivity pneumonitis tx at [facility]' 2018 Arthritis History of pneumonia (04/2024) hospitalized for [facility] 04/17/24-04/20/24. pt denies ongoing sx History of asthma unclear if dx in hx. Pt denies breathing problems, known active dx. No medications. History of restless legs syndrome Resolved Seasonal allergies History of DIC syndrome s/p MVR surgery 1994 Surgical History (Updated 09/19/24 @ 06:41 by Sean Almazan MD) Status post mitral valve replacement 2/2 Severe MR. Mechanical mitral valve replacement (1994). On AC with warfarin. Followed by cardiology. History of esophagogastroduodenoscopy (EGD) History of bronchoscopy History of partial hysterectomy ovaries remain History of carpal tunnel release Left History of tooth extraction History of cardiac cath 1994, no stents. Prior to mitral valve replacement. History of dilation and curettage History of cataract surgery Bilateral History of lumpectomy of right breast History of colonoscopy W/polypectomy History of appendectomy History of arthroscopy Left Knee History of total knee replacement Right 2011 Family History Mother Family hx of colon cancer Osteoarthritis Colorectal cancer Cancer Brother Prostate cancer Son Diabetes Family history of diabetes mellitus Sister Breast cancer Family history of reaction to anesthesia Father Cancer Denies family history of Ovarian cancer Myocardial infarction Stroke Social History Smoking Status: Never smoker Second Hand Exposure: No; Do You Dip or Chew Tobacco: No; Hx Alcohol Use: Yes Alcohol type: wine Alcohol Intake Frequency: 2-3 x/Week Hx Substance Use: No Preferred Language: Sudanese Communication Ability: Effective Visual Impairment: No Limitations Hearing Ability: Normal Cage Unloader Required: No Beliefs That Will Affect Care: None marital status: Current Living Situation: Spouse current occupational status: employed and retired 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 Other Information That Helps Us Care for You: No Feels Safe at Home: Yes Safety Concerns: Feels Safe At This Time Childhood Exposure to Second-Hand Smoke: Yes (Mother) Diet: gluten free Diet Comment: dairy free during the past year weight has: remained stable Dental Care, Regularly: Yes Physical Activity Frequency: Daily Seatbelt Use: always Sunscreen Use: Yes Assistive Devices: Crutches and Walker Allergies Allergies Allergy/AdvReac Type Severity Reaction Status Date / Time gluten Allergy Intermediate gluten Verified 09/06/24 05:31 allergy/gluten free diet Sulfa (Sulfonamide Allergy Intermediate RASH Verified 09/06/24 05:31 Antibiotics) Home Meds Home Medications Medication Instructions Recorded Confirmed multivitamin 1 tab PO QAM 08/20/18 09/19/24 acetaminophen 650 mg 650 mg PO UD PRN Pain 12/18/19 09/19/24 tablet,extended release (Tylenol Arthritis Pain) cholecalciferol (vitamin D3) 50 2,000 unit PO QAM 12/18/19 09/19/24 mcg (2,000 unit) tablet (Vitamin D3) triamcinolone acetonide 0.1 % 1 applic topical UD PRN Rash 09/17/20 09/19/24 topical cream montelukast 10 mg tablet 10 mg PO QPM 02/15/21 09/19/24 (Singulair) amoxicillin 500 mg capsule 2,000 mg PO DIRECTED PRN PRIOR 04/17/24 09/19/24 TO DENTAL PROCEDURES cyanocobalamin (vitamin B-12) 500 500 mcg PO HS 04/17/24 09/19/24 mcg tablet (Vitamin B-12) warfarin 5 mg tablet 5 mg PO UD 04/17/24 09/19/24 omega 1-wog-kte-fish oil 1,200 mg 1 cap PO QAM 08/17/24 09/19/24 (144 mg-216 mg) capsule (Fish Oil) Previous Rx's Medication Instructions Recorded fluticasone propionate 50 1 spray intranasal QAM #9.9 mL 04/01/24 mcg/actuation nasal spray,suspension (Flonase Allergy Relief) levothyroxine 100 mcg tablet 100 mcg PO QAM #90 tabs 04/24/24 hydrochlorothiazide 12.5 mg tablet 12.5 mg PO QAM PRN edema #30 tabs 04/27/24 metoprolol succinate 25 mg 12.5 mg (1/2 x 25 mg) PO BID #90 06/01/24 tablet,extended release 24 hr tabs digoxin 125 mcg (0.125 mg) tablet 125 mcg PO QAM #30 tabs 07/20/24 tramadol 50 mg tablet 50 mg PO DAILY pain #30 tabs 07/20/24 acetaminophen 500 mg tablet 1,000 mg (2 x 500 mg) PO Q8 #30 09/07/24 (Tylenol Extra Strength) tabs docusate sodium 100 mg capsule 100 mg PO BID 14 days #28 caps 09/07/24 oxycodone 5 mg tablet 5 - 10 mg (1 - 2 x 5 mg) PO Q4H 09/07/24 PRN pain #18 tabs tramadol 50 mg tablet 50 - 100 mg (1 - 2 x 50 mg) PO Q4H 09/07/24 PRN pain #18 tabs enoxaparin 60 mg/0.6 mL 60 mg (0.6 mL) subcut Q12H #3 mL 09/08/24 subcutaneous syringe (Lovenox) Results & Data (ED) Vital Signs Vital Signs - 24 hr 09/19/24 03:32 09/19/24 03:32 09/19/24 03:47 Temperature 36.7 C Temperature Source Oral Pulse Rate 83 88 Pulse Rate from SpO2 Sensor Respiratory Rate 16 Respiratory Effort / Characteristics Respiratory Depth Normal Normal Respiratory Pattern Tachypnea Blood Pressure 120/70 Blood Pressure Mean 86 Pulse Oximetry 98 Oxygen Delivery Method Room Air Sepsis Recent Fever Within 48 Hours No Sepsis New/Unexplained Change in Mental Status No Sepsis Action Taken by Nursing No Action Required 09/19/24 03:48 09/19/24 04:03 09/19/24 04:18 Temperature Temperature Source Pulse Rate 89 85 81 Pulse Rate from SpO2 Sensor 89 81 Respiratory Rate 22 24 20 Respiratory Effort / Characteristics Respiratory Depth Respiratory Pattern Blood Pressure Blood Pressure Mean Pulse Oximetry 99 93 Oxygen Delivery Method Sepsis Recent Fever Within 48 Hours Sepsis New/Unexplained Change in Mental Status Sepsis Action Taken by Nursing 09/19/24 05:06 09/19/24 05:21 09/19/24 05:32 Temperature Temperature Source Pulse Rate 87 87 Pulse Rate from SpO2 Sensor 86 81 Respiratory Rate 16 21 Respiratory Effort / Characteristics Non-Labored Respiratory Depth Normal Respiratory Pattern Blood Pressure 115/64 Blood Pressure Mean 81 Pulse Oximetry 100 97 Oxygen Delivery Method Sepsis Recent Fever Within 48 Hours Sepsis New/Unexplained Change in Mental Status Sepsis Action Taken by Nursing 09/19/24 05:45 09/19/24 05:51 09/19/24 06:03 Temperature Temperature Source Pulse Rate 88 87 85 Pulse Rate from SpO2 Sensor 89 87 85 Respiratory Rate 29 H 30 H 22 Respiratory Effort / Characteristics Respiratory Depth Respiratory Pattern Blood Pressure Blood Pressure Mean Pulse Oximetry 100 100 100 Oxygen Delivery Method Sepsis Recent Fever Within 48 Hours Sepsis New/Unexplained Change in Mental Status Sepsis Action Taken by Nursing Laboratory Data 09/19/24 11:08 09/19/24 03:54 Lab Results 09/19/24 Range/Units 03:54 WBC 13.93 H (4.8-10.8) K/ul RBC 2.63 L (4.20-5.40) M/uL Hgb 8.7 L (12.0-16.0) g/dl Hct 26.1 L (37.0-47.0) % MCV 99.2 (80.0-100.0) fL MCH 33.1 (25.0-34.0) pg MCHC 33.3 (32.0-36.0) g/dL RDW Std Deviation 58.1 H (36.4-46.3) fL RDW Coeff of Aracelis 16.7 H (11.5-14.5) % Plt Count 440 H (130-400) K/uL MPV 9.0 L (9.4-12.4) fL Immature Gran % (Auto) 1.9 % Neut % (Auto) 79.0 % Lymph % (Auto) 7.8 % Schleicher % (Auto) 9.5 % Eos % (Auto) 1.4 % Baso % (Auto) 0.4 % Neut # (Auto) 11.00 H (1.40-6.50) K/uL Lymph # (Auto) 1.09 L (1.20-3.40) K/uL Schleicher # (Auto) 1.33 H (0.11-0.59) K/uL Eos # (Auto) 0.19 (0.00-0.50) K/uL Baso # (Auto) 0.06 (0.00-0.20) K/uL Immature Gran # (Auto) 0.26 H (0.01-0.20) K/uL ESR 18 (0-30) mm/hr PT 38.6 H (9.0-12.0) Seconds INR 4.0 H (0.9-1.1) Sodium 130 L (136-145) mmol/L Potassium 4.0 (3.5-5.1) mmol/L Chloride 97 L (98-107) mmol/L Carbon Dioxide 21 (21-32) mmol/L Anion Gap 12 H (3-11) BUN 14 (6-23) mg/dl Creatinine 0.48 L (0.6-1.2) mg/dl Est Cr Clr Drug Dosing 101.5 ml/min eGFR 99.95 BUN/Creatinine Ratio 29.2 H (10-20) Glucose 114 H (70-99(Fasting)) mg/dl Calcium 8.8 (8.6-10.3) mg/dl Total Bilirubin 1.4 H (0.2-1.0) mg/dl AST 29 (13-39) U/L ALT 15 (7-52) U/L Alkaline Phosphatase 90 (34-104) U/L C-Reactive Protein 6.13 H (0-0.5) mg/dl Total Protein 5.7 L (6.0-8.3) gm/dl Albumin 3.5 (3.4-5.0) gm/dl Globulin 2.2 L (2.5-4.0) gm/dl Albumin/Globulin Ratio 1.6 (0.9-2) Administered Medications Digoxin (Digoxin 0.125 Mg Tab) 0.[address] [facility] Stop: 10/19/24 10:25 Last Admin: 09/19/24 11:21 Dose: 0.125 mg Documented By: SRL Hydromorphone HCl (Hydromorphone Inj 1 Mg/Ml Syringe) 1 mg IV Q30M PRN PRN Reason: severe Stop: 10/03/24 06:11 Last Admin: 09/19/24 08:26 Dose: 1 mg Documented By: Admin: 09/19/24 07:17 Dose: 1 mg Documented By: Admin: 09/19/24 06:30 Dose: 1 mg Documented By: JUANCARLOS Pantoprazole Sodium (Protonix) 40 mg in 10 mls @ 5 mls/min IV DAILY [facility] Stop: 10/19/24 10:25 Last Admin: 09/19/24 11:22 Dose: 5 mls/min Documented By: SRL Potassium Chloride/Sodium Chloride (Normal Saline W/20 Meq Kcl) 20 meq in 1,000 mls @ 80 mls/hr IV .[id number] [facility] Stop: 09/19/24 22:55 Last Admin: 09/19/24 11:22 Dose: 80 mls/hr Documented By: SRL Levothyroxine Sodium (Levothyroxine Sodium 100 Mcg Tablet) 100 mcg PO DAILYBB MARISOL Stop: 10/19/24 10:25 Last Admin: 09/19/24 11:21 Dose: 100 mcg Documented By: SRL Metoprolol Succinate (Metoprolol Succ 25mg Ext Rel Tab) 12.[address] [facility] Stop: 10/19/24 10:25 Last Admin: 09/19/24 11:21 Dose: 12.5 mg Documented By: L Discontinued Medications Hydromorphone HCl (Hydromorphone Inj 1 Mg/Ml Syringe) Confirm Administered Dose 1 mg .ROUTE .STK-MED ONE Stop: 09/19/24 04:02 Last Admin: 09/19/24 04:05 Dose: 1 mg Documented By: JUANCARLOS Hydromorphone HCl (Hydromorphone Inj 1 Mg/Ml Syringe) 1 mg IV NOW STA Stop: 09/19/24 04:08 Last Admin: 09/19/24 04:20 Dose: Not Given Documented By: JUANCARLOS Hydromorphone HCl (Hydromorphone Inj 0.5 Mg/0.5 Ml Syr) 0.5 mg IV NOW STA Stop: 09/19/24 04:56 Last Admin: 09/19/24 05:05 Dose: 0.5 mg Documented By: JING Hydromorphone HCl (Hydromorphone Inj 0.5 Mg/0.5 Ml Syr) 0.5 mg IV NOW STA Stop: 09/19/24 05:49 Last Admin: 09/19/24 05:56 Dose: 0.5 mg Documented By: JUANCARLOS Ceftriaxone Sodium (Rocephin) 2,000 mg in 50 mls @ 100 mls/hr IV Q24H [facility]; Protocol Stop: 10/31/24 10:25 Last Infusion: 09/19/24 11:49 Dose: Infused Documented By: Admin: 09/19/24 11:22 Dose: 100 mls/hr Documented By: MANDEEP Ioversol (Optiray 320 100ml) 94 ml IV ONCE ONE Stop: 09/19/24 07:37 Last Admin: 09/19/24 07:36 Dose: 94 ml Documented By: YARI Ondansetron HCl (Ondansetron Inj 2 Mg/Ml 2 Ml Vial) Confirm Administered Dose 4 mg .ROUTE .STK-MED ONE Stop: 09/19/24 04:02 Last Admin: 09/19/24 04:05 Dose: 4 mg Documented By: JUANCARLOS Ondansetron HCl (Ondansetron Inj 2 Mg/Ml 2 Ml Vial) 4 mg IV NOW STA Stop: 09/19/24 04:20 Last Admin: 09/19/24 04:21 Dose: Not Given Documented By: JUANCARLOS Imaging Data Radiologist's Impression: Knee X-Ray 09/19/24 04:08 EXAM: XR knee LT 1 or 2V routine CLINICAL HISTORY: LT KNEE REPLACEMENT 09/06/24 PAIN/SWELLING/REDNESS INPATIENT TECHNIQUE: X-ray of the left knee was performed ( 2 views ) AP and lateral projections. COMPARISON: 09/06/2024. FINDINGS: Status post left knee joint total replacement with no signs of loosening or dislocation. Moderate sclerotic reaction is seen at the upper tibial plateau and shaft. No acute fracture was seen. Slightly increased soft tissue swelling around the knee joint is seen. Reduced bone mineralization. IMPRESSION: 1. Status post left knee joint total replacement with no signs of loosening or dislocation. 2. Slightly increased soft tissue swelling around the knee joint is seen. No other interval changes compared to the prior study. 3. Osteopenia. DISCLAIMER:A subtle bone abnormality or fracture may not be readily apparent on x-rays, thus clinical correlation and further imaging including follow up CT, MRI, or follow up x-rays are advised as needed. Electronically signed by Javier Butler 09-19-2024 05:[address] 09/19/24 06:16 Clinical history: Severe pain Technique: Axial computed tomography images were obtained of the left knee after the administration of intravenous contrast. Sagittal and coronal reconstructions were obtained Comparison is made to the radiographs obtained earlier today Findings: No fracture is identified. Again seen is a left knee total arthroplasty in expected position. There is no definite sign of infection or loosening.. No focal osseous lesion is evident The visualized musculature appears unremarkable. There is a large knee effusion that is heterogeneous and partially high attenuation. This could be due to blood products. Surgical skin henrietta are again seen anteriorly There is mild multifocal subcutaneous edema. No definite soft tissue abscess or hematoma is seen Impression: 1. Large hemorrhagic knee effusion 2. Left knee replacement Electronically signed by Paul Escobar 09-19-2024 09:02 AM Discharge Plan Visit Data Chief Complaint: Knee Injury/Pain Stated Complaint: L KNEE PAIN ED Provider: Jennifer Valenzuela Discharge Problem: Acute pain of left knee, Anemia Patient Disposition: Admitted As Inpatient Discharge Instructions Interventions: ED Discharge Assessment Last Done: 09/19/24 15:16
[2024-09-19 04:37] LABS: Albumin Globulin Ratio 1.6 (0.9-2); Albumin Level 3.5 gm/dl (3.4-5.0); BUN Creatinine Ratio 29.2 (10-20); Bilirubin,Total 1.4 mg/dl (0.2-1.0); C Reactive Protein 6.13 mg/dl (0-0.5); Calcium 8.8 mg/dl (8.6-10.3); Creatinine Clr Calc Pharmacy 101.5 ml/min; Globulin 2.2 gm/dl (2.5-4.0); Total Protein 5.7 gm/dl (6.0-8.3)
[2024-09-19] MEDS: HYDROmorphone INJ 0.5 MG/0.5 ML SYR IV STA ×2 (05:05→05:56)
--- NOTE | 2024-09-19 05:19 | XRay Report ---
EXAM: XR knee LT 1 or 2V routine CLINICAL HISTORY: LT KNEE REPLACEMENT 09/06/24 PAIN/SWELLING/REDNESS INPATIENT TECHNIQUE: X-ray of the left knee was performed ( 2 views ) AP and lateral projections. COMPARISON: 09/06/2024. FINDINGS: Status post left knee joint total replacement with no signs of loosening or dislocation. Moderate sclerotic reaction is seen at the upper tibial plateau and shaft. No acute fracture was seen. Slightly increased soft tissue swelling around the knee joint is seen. Reduced bone mineralization. IMPRESSION: 1. Status post left knee joint total replacement with no signs of loosening or dislocation. 2. Slightly increased soft tissue swelling around the knee joint is seen. No other interval changes compared to the prior study. 3. Osteopenia. DISCLAIMER:A subtle bone abnormality or fracture may not be readily apparent on x-rays, thus clinical correlation and further imaging including follow up CT, MRI, or follow up x-rays are advised as needed. Electronically signed by Javier Butler 09-19-2024 05:19 AM
[2024-09-19 06:06] LABS: Prothrombin Time 38.6 Seconds (9.0-12.0)
--- NOTE | 2024-09-19 06:24 | History & Physical Report ---
Date of Service September 19, 2024 Assessment & Plan (1) Status post left knee replacement: (2) Pain and swelling of left knee: (3) Chronic anticoagulation: (4) S/P mitral valve replacement: (5) Atrial flutter: Plan Pain and swelling of left knee/status post left total knee arthroplasty- N.p.o. except essential medications Acetaminophen 1 g IV every 8 hours as needed for mild pain or fever Dilaudid 1 mg IV every 30 minutes as needed for severe pain. 0.5 mg IV did not work Zofran 4 mg IV every 6 hours as needed Pantoprazole 40 mg IV daily Ceftriaxone [address] scan left knee ordered Consult orthopedic surgery Atrial flutter/status post mitral valve replacement- On chronic anticoagulation with warfarin per anticoagulation clinic, INR is 4.0 Continue digoxin and metoprolol succinate. Digoxin level ordered and pending Anemia- Hemoglobin is decreased from 10.4-8.7 Concern regarding bleeding into left leg Ordering CT scan as noted Type and screen History of Present Illness Chief Complaint: The patient presents to the emergency department with the acute onset of severe left knee pain at 8 PM last evening. She had undergone a left total knee arthroplasty with Dr. Quispe on 09/06/2024, and reports that she had been doing well without problems, until the acute events at 8 PM last evening Primary Care Provider: Joshua Stahl MD The patient is a 74-year-old female with a past medical history including vitamin B12 deficiency, gluten sensitive enteropathy, IBS, patent foramen ovale, Dupuytren's contracture, generalized osteoarthritis, hypothyroidism, hypersensitivity pneumonitis, status post mechanical mitral valve replacement, and history of lumpectomy. Patient presents to the emergency department with severe left knee pain as noted. She denies any recent trauma. She is requiring Dilaudid 1 mg IV for some improvement in her pain. Her hemoglobin was noted to have dropped from 10.4 down to 8.7. Her INR on warfarin is 4.0 Allergies Allergy/AdvReac Type Severity Reaction Status Date / Time gluten Allergy Intermediate gluten Verified 09/06/24 05:31 allergy/gluten free diet Sulfa (Sulfonamide Allergy Intermediate RASH Verified 09/06/24 05:31 Antibiotics) Home Medications Medication Instructions Recorded Confirmed Type multivitamin 1 tab PO QAM 08/20/18 09/06/24 History acetaminophen 650 mg 650 mg PO UD PRN Pain 12/18/19 09/06/24 History tablet,extended release (Tylenol Arthritis Pain) cholecalciferol (vitamin D3) 50 2,000 unit PO QAM 12/18/19 09/06/24 History mcg (2,000 unit) tablet (Vitamin D3) triamcinolone acetonide 0.1 % 1 applic topical UD PRN Rash 09/17/20 09/06/24 History topical cream montelukast 10 mg tablet 10 mg PO QPM 02/15/21 09/06/24 History (Singulair) fluticasone propionate 50 1 spray intranasal QAM #9.9 mL 04/01/24 09/06/24 Rx mcg/actuation nasal spray,suspension (Flonase Allergy Relief) amoxicillin 500 mg capsule 2,000 mg PO DIRECTED PRN PRIOR 04/17/24 09/06/24 History TO DENTAL PROCEDURES cyanocobalamin (vitamin B-12) 500 500 mcg PO HS 04/17/24 09/06/24 History mcg tablet (Vitamin B-12) warfarin 5 mg tablet 5 mg PO QPM 04/17/24 09/06/24 History levothyroxine 100 mcg tablet 100 mcg PO QAM #90 tabs 04/24/24 09/06/24 Rx hydrochlorothiazide 12.5 mg tablet 12.5 mg PO QAM PRN edema #30 tabs 04/27/24 09/06/24 Rx metoprolol succinate 25 mg 12.5 mg (1/2 x 25 mg) PO BID #90 06/01/24 09/06/24 Rx tablet,extended release 24 hr tabs digoxin 125 mcg (0.125 mg) tablet 125 mcg PO QAM #30 tabs 07/20/24 09/06/24 Rx tramadol 50 mg tablet 50 mg PO DAILY pain #30 tabs 07/20/24 09/06/24 Rx omega 3-fwi-due-fish oil 1,200 mg 1 cap PO QAM 08/17/24 09/06/24 History (144 mg-216 mg) capsule (Fish Oil) acetaminophen 500 mg tablet 1,000 mg (2 x 500 mg) PO Q8 #30 09/07/24 Rx (Tylenol Extra Strength) tabs docusate sodium 100 mg capsule 100 mg PO BID 14 days #28 caps 09/07/24 Rx oxycodone 5 mg tablet 5 - 10 mg (1 - 2 x 5 mg) PO Q4H 09/07/24 Rx PRN pain #18 tabs tramadol 50 mg tablet 50 - 100 mg (1 - 2 x 50 mg) PO Q4H 09/07/24 Rx PRN pain #18 tabs enoxaparin 60 mg/0.6 mL 60 mg (0.6 mL) subcut Q12H #3 mL 09/08/24 Rx subcutaneous syringe (Lovenox) Past Med/Surg History Problem List (Updated 09/19/24 @ 06:41 by Sean Almazan MD) Atrial flutter Digoxin/Metoprolol Dr Lopez no cardioversion Pain and swelling of left knee Status post left knee replacement Constipation (Acute) Status post knee replacement Osteoarthritis of left knee Heterogeneously dense tissue of both breasts on mammography Family history of malignant neoplasm of breast Tachycardia (Acute) Arthritis Dense breast tissue Vitamin B12 deficiency Tubular adenoma of colon Abnormal celiac antibody panel Elevated anti-tissue transglutaminase (tTG) IgA level IBS (irritable bowel syndrome) Family history of colon cancer History of colon polyps HX: breast cancer RT BREAST (SURGERY ONLY) DCIS Frequent loose stools Chronic anticoagulation Palpitations Patent foramen ovale Health care maintenance Dupuytrens contracture (Acute) Generalized osteoarthritis (Chronic) S/p R total knee replacement. Pain associated with the hands. Primarily taking tramadol for pain. Avoidance of NSAIDs given on AC with warfarin. Has also received corticosteroid injections in the past via ortho. Working on tapering tramadol Osteopenia (Chronic) DEXA (02/25) demonstrating lowest T-score -1.3 right femur neck. Currently treated with Vit D supplementation. Hypothyroidism (Chronic) Maintained on levoythyroxine and has remained stable Hypersensitivity pneumonitis (Chronic) Recurrent episodes of prolonged flu like illness x2. Seen by pulm. BAL performed (2018) with neutrophilic and lymphocytic alveolitis. Currently on prednisone taper S/P mitral valve replacement (Chronic) 2/2 Severe MR. Mechanical mitral valve replacement (). On AC with warfarin. Followed by cardiology. Medical History (Updated 09/19/24 @ 06:41 by Sean Almazan MD) Atrial flutter dx 04/2024; started on meds; scheduled for cardioversion 05/24/24 History of blood transfusion several, nikki-operative; during mitral valve replacement, hysterectomy and right TKA Allergy to gluten Hypothyroidism Chronic anticoagulation Pulmonary nodule History of COVID-19 2021 & 2022 no issues since Patent foramen ovale PFO suspected per 04/09/23 ECHO. also mentioned in 06/01/23 Cardio note. no mention of PFO in 04/2024 ECHO Osteoarthritis Osteopenia History of breast cancer right, 2012, lumpectomy. DCIS IBS (irritable bowel syndrome) History of colon polyps Interstitial lung disease per chart review, 'hx of Siegel's lung/hypersensitivity pneumonitis tx at [facility]' 2018 Arthritis History of pneumonia (04/2024) hospitalized for [facility] 04/17/24-04/20/24. pt denies ongoing sx History of asthma unclear if dx in hx. Pt denies breathing problems, known active dx. No medications. History of restless legs syndrome Resolved Seasonal allergies History of DIC syndrome s/p MVR surgery 1994 Surgical History (Updated 09/19/24 @ 06:41 by Sean Almazan MD) Status post mitral valve replacement 2/2 Severe MR. Mechanical mitral valve replacement (1994). On AC with warfarin. Followed by cardiology. History of esophagogastroduodenoscopy (EGD) History of bronchoscopy History of partial hysterectomy ovaries remain History of carpal tunnel release Left History of tooth extraction History of cardiac cath 1994, no stents. Prior to mitral valve replacement. History of dilation and curettage History of cataract surgery Bilateral History of lumpectomy of right breast History of colonoscopy W/polypectomy History of appendectomy History of arthroscopy Left Knee History of total knee replacement Right 2011 Family History Mother Family hx of colon cancer Osteoarthritis Colorectal cancer Cancer Brother Prostate cancer Son Diabetes Family history of diabetes mellitus Sister Breast cancer Family history of reaction to anesthesia Father Cancer Denies family history of Ovarian cancer Myocardial infarction Stroke Social History Smoking Status: Never smoker Second Hand Exposure: No; Do You Dip or Chew Tobacco: No; Hx Alcohol Use: Yes Alcohol type: wine Alcohol Intake Frequency: 2-3 x/Week Hx Substance Use: No Preferred Language: Kittitian Communication Ability: Effective Visual Impairment: No Limitations Hearing Ability: Normal Skill Training Program Coordinator Required: No Beliefs That Will Affect Care: None marital status: Current Living Situation: Spouse current occupational status: employed and retired current occupation: [employer] employee Feels Safe at Home: Yes Childhood Exposure to Second-Hand Smoke: Yes (Mother) Diet: gluten free Diet Comment: dairy free during the past year weight has: remained stable Dental Care, Regularly: Yes Physical Activity Frequency: Daily Seatbelt Use: always Sunscreen Use: Yes Assistive Devices: Crutches and Walker Review of Systems Review of Systems: The patient denies chest pain, palpitations, shortness of breath, dyspnea on exertion, cough, sore throat, fevers, chills, sweats, weight change, fatigue, nausea, vomiting, diarrhea , constipation, abdominal pain, pelvic pain, blood in urine or stool, dysuria, urinary frequency or urgency, lightheadedness, dizziness, headache, memory loss, loss of consciousness, rash, focal or generalized weakness, numbness or tingling in arms or right leg, generalized arthralgias or myalgias, back or neck pain, or night sweats. The review of systems is otherwise negative other than for that already noted above, and at least 10 systems have been reviewed. Physical Exam Physical Exam: The patient is awake, alert and oriented 3, well developed and well nourished, normocephalic and atraumatic, lying in bed and in moderately severe distress due to left knee pain HEENT--PERRL, EOMI, mucous membranes and oropharynx dry. Neck--supple. No JVD. No bruits. Thyroid normal, trachea midline, no adenopathy. Heart--normal S1 and S2. MR murmur. No rubs or gallops. Lungs--clear bilaterally, no respiratory distress, no accessory muscle use. Abdomen--normal bowel sounds and soft. Nontender. Nondistended, no hernias or masses, no organomegaly. Extremities--right lower extremity normal. Left lower extremity, knee with henrietta intact, ecchymosis/bruising extends superiorly through the thigh Dermatologic--see above Neurologic--cranial nerves II through XII grossly intact. Rheumatologic-Limited range of motion left knee due to pain Psychiatric--normal affect. Results & Data Results & Data Vital Signs (Past 12 Hours) Vital Signs Temp Pulse Resp BP Pulse Ox O2 Del Method 09/19/24 06:03 85 22 100 09/19/24 05:51 87 30 H 100 09/19/24 05:45 88 29 H 100 09/19/24 05:21 87 21 97 09/19/24 05:06 87 16 115/64 100 09/19/24 04:18 81 20 93 09/19/24 04:03 85 24 09/19/24 03:48 89 22 99 09/19/24 03:47 88 09/19/24 03:32 36.7 C 83 16 120/70 98 Room Air Laboratory Results Laboratory Results WBC 13.93 K/ul (4.8-10.8) H 09/19/24 03:54 RBC 2.63 M/uL (4.20-5.40) L 09/19/24 03:54 Hgb 8.7 g/dl (12.0-16.0) L 09/19/24 03:54 Hct 26.1 % (37.0-47.0) L 09/19/24 03:54 MCV 99.2 fL (80.0-100.0) 09/19/24 03:54 MCH 33.1 pg (25.0-34.0) 09/19/24 03:54 MCHC 33.3 g/dL (32.0-36.0) 09/19/24 03:54 RDW Std Deviation 58.1 fL (36.4-46.3) H 09/19/24 03:54 RDW Coeff of Aracelis 16.7 % (11.5-14.5) H 09/19/24 03:54 Plt Count 440 K/uL (130-400) H 09/19/24 03:54 MPV 9.0 fL (9.4-12.4) L 09/19/24 03:54 Immature Gran % (Auto) 1.9 % 09/19/24 03:54 Neut % (Auto) 79.0 % 09/19/24 03:54 Lymph % (Auto) 7.8 % 09/19/24 03:54 Kendall % (Auto) 9.5 % 09/19/24 03:54 Eos % (Auto) 1.4 % 09/19/24 03:54 Baso % (Auto) 0.4 % 09/19/24 03:54 Neut # (Auto) 11.00 K/uL (1.40-6.50) H 09/19/24 03:54 Lymph # (Auto) 1.09 K/uL (1.20-3.40) L 09/19/24 03:54 Kendall # (Auto) 1.33 K/uL (0.11-0.59) H 09/19/24 03:54 Eos # (Auto) 0.19 K/uL (0.00-0.50) 09/19/24 03:54 Baso # (Auto) 0.06 K/uL (0.00-0.20) 09/19/24 03:54 Immature Gran # (Auto) 0.26 K/uL (0.01-0.20) H 09/19/24 03:54 ESR 18 mm/hr (0-30) 09/19/24 03:54 PT 38.6 Seconds (9.0-12.0) H 09/19/24 03:54 INR 4.0 (0.9-1.1) H 09/19/24 03:54 Sodium 130 mmol/L (136-145) L 09/19/24 03:54 Potassium 4.0 mmol/L (3.5-5.1) 09/19/24 03:54 Chloride 97 mmol/L (98-107) L 09/19/24 03:54 Carbon Dioxide 21 mmol/L (21-32) 09/19/24 03:54 Anion Gap 12 (3-11) H 09/19/24 03:54 BUN 14 mg/dl (6-23) 09/19/24 03:54 Creatinine 0.48 mg/dl (0.6-1.2) L 09/19/24 03:54 Est Cr Clr Drug Dosing 101.5 ml/min 09/19/24 03:54 eGFR 99.95 09/19/24 03:54 BUN/Creatinine Ratio 29.2 (10-20) H 09/19/24 03:54 Glucose 114 mg/dl (70-99(Fasting)) H 09/19/24 03:54 Calcium 8.8 mg/dl (8.6-10.3) 09/19/24 03:54 Total Bilirubin 1.4 mg/dl (0.2-1.0) H 09/19/24 03:54 AST 29 U/L (13-39) 09/19/24 03:54 ALT 15 U/L (7-52) 09/19/24 03:54 Alkaline Phosphatase 90 U/L (34-104) 09/19/24 03:54 C-Reactive Protein 6.13 mg/dl (0-0.5) H 09/19/24 03:54 Total Protein 5.7 gm/dl (6.0-8.3) L 09/19/24 03:54 Albumin 3.5 gm/dl (3.4-5.0) 09/19/24 03:54 Globulin 2.2 gm/dl (2.5-4.0) L 09/19/24 03:54 Albumin/Globulin Ratio 1.6 (0.9-2) 09/19/24 03:54 Impressions Knee X-Ray 09/19/24 04:08 EXAM: XR knee LT 1 or 2V routine CLINICAL HISTORY: LT KNEE REPLACEMENT 09/06/24 PAIN/SWELLING/REDNESS INPATIENT TECHNIQUE: X-ray of the left knee was performed ( 2 views ) AP and lateral projections. COMPARISON: 09/06/2024. FINDINGS: Status post left knee joint total replacement with no signs of loosening or dislocation. Moderate sclerotic reaction is seen at the upper tibial plateau and shaft. No acute fracture was seen. Slightly increased soft tissue swelling around the knee joint is seen. Reduced bone mineralization. IMPRESSION: 1. Status post left knee joint total replacement with no signs of loosening or dislocation. 2. Slightly increased soft tissue swelling around the knee joint is seen. No other interval changes compared to the prior study. 3. Osteopenia. DISCLAIMER:A subtle bone abnormality or fracture may not be readily apparent on x-rays, thus clinical correlation and further imaging including follow up CT, MRI, or follow up x-rays are advised as needed. Electronically signed by Javier Butler 09-19-2024 05:19 AM Code Status & VTE Plan Code Status Full code VTE Prophylaxis Plan VTE Prophylaxis will be ordered: Yes PG Care Time/CCT Total # of Minutes Spent Total Time Spent with Patient: Total time spent is greater than 50% in coordination of care (as documented) at patient's floor/unit and/or counseling patient: Coding Level of Care Code 33698 INT INP/OBS CARE 3/75MIN Diagnoses Status post left knee replacement Z96.652 Pain and swelling of left knee M25.562; M25.462 Chronic anticoagulation Z79.01 S/P mitral valve replacement Z95.2 Atrial flutter I48.92
[2024-09-19] MEDS: HYDROmorphone INJ 1 MG/ML SYRINGE IV PRN (06:30)
[2024-09-19] MEDS: OPTIRAY 320 100ml IV ONE (07:36)
--- NOTE | 2024-09-19 09:03 | CT Scan Report ---
Clinical history: Severe pain Technique: Axial computed tomography images were obtained of the left knee after the administration of intravenous contrast. Sagittal and coronal reconstructions were obtained Comparison is made to the radiographs obtained earlier today Findings: No fracture is identified. Again seen is a left knee total arthroplasty in expected position. There is no definite sign of infection or loosening.. No focal osseous lesion is evident The visualized musculature appears unremarkable. There is a large knee effusion that is heterogeneous and partially high attenuation. This could be due to blood products. Surgical skin henrietta are again seen anteriorly There is mild multifocal subcutaneous edema. No definite soft tissue abscess or hematoma is seen Impression: 1. Large hemorrhagic knee effusion 2. Left knee replacement Electronically signed by Paul Escobar 09-19-2024 09:02 AM
[2024-09-19] MEDS ORDERED: ONDANSETRON INJ 2 MG/ML 2 ML VIAL IV PRN (10:26)
[2024-09-19] MEDS: LEVOTHYROXINE SODIUM 100 MCG TABLET PO SCH (11:21)
[2024-09-19] MEDS: DIGOXIN 0.125 MG TAB PO SCH (11:21)
[2024-09-19] MEDS: METOPROLOL SUCC 25MG EXT REL TAB PO SCH (11:21)
[2024-09-19] MEDS: NSS + 20MEQ KCL 20 MEQ/1,000 ML BAG IV SCH (11:22)
[2024-09-19] MEDS: PANTOprazole 40 MG/10 ML SYR IV SCH (11:22)
[2024-09-19] MEDS: cefTRIAXone SODIUM 2,000 MG/50 ML BAG IV SCH (11:22)
[2024-09-19 11:24] LABS: Hematocrit (blood only) 24.4 % (37.0-47.0); Hemoglobin 8.2 g/dl (12.0-16.0)
--- NOTE | 2024-09-19 15:59 | Orthopedic Consultation ---
Date of Consultation September 19, 2024 Assessment & Plan (1) Hemarthrosis of left knee: Patient has an acute hemarthrosis status post a left total knee arthroplasty on August. She is on chronic warfarin. Her INR was 4.0. Recommended holding the Coumadin as of today. She was currently n.p.o. but we with no evidence of infection we will allow her to eat today. A diet order has been placed. Encouraged ice and elevation. Will discuss findings with Dr. Quispe but most likely will plan to attempt and aspiration later this afternoon. She can do range of motion as tolerated. She may be out of bed with bathroom pledges with the assistance of a walker. Most likely will need PT and OT consultations. She was placed on IV ceftriaxone which has been discontinued at this time. If fluid aspirated has any concerns for infection would like to get cultures so best to be off antibiotics for now. She does have an elevated white blood count but she is currently afebrile and no other evidence of any type of infectious process at this time. Encouraged elevation. She was propped on 2 pillows. Will reevaluate with Dr. Quispe later today. Patient understands and agrees with the plan. (2) Status post left knee replacement: History of Present Illness Reason for Consultation: Intractable left knee pain; status post total knee arthroplasty on September 06, 2024 Attending Physician: Sean Almazan MD History of Present Illness Patient is a pleasant 74-year-old female who presented to the emergency room early this morning with severe left knee pain that started yesterday. She denies any known injury. She states that she started suddenly. She has been going about her postoperative rehab as instructed and was doing exercises fairly easily with bending, straightening and ambulating up until yesterday evening. She noted some increased pain and discomfort and swelling of her left knee. She does take chronic warfarin. She was on Lovenox bridging 60 mg twice daily but has not taken Lovenox for a week. She also has been having issues with constipation. She was in the emergency room about 4 days ago and had a bowel movement then but has not had 1 since. Denies any abdominal pain. Denies any fevers or chills. Denies any numbness or tingling down her left leg. She notes a lot of bruising and swelling down the left leg. She notes some posterior knee pain. She states that it "has been tight back there since surgery". No issues with her incision. No drainage from the incision. Up until yesterday she was getting around fairly well and was pleased with her recovery. She states now she "has fallen behind". Her INR today in the emergency room was 4.0. This is currently being held. She had an x-ray in the emergency room which showed no evidence of fracture and a stable left knee prosthesis. She had a CT scan of her left knee which showed a large hemarthrosis to the left knee and no evidence of fracture. Due to these findings and her current severe pain a consultation was placed for Dr. Quispe. She is going to be admitted by the hospitalist service for pain management. Allergies Allergy/AdvReac Type Severity Reaction Status Date / Time gluten Allergy Intermediate gluten Verified 09/06/24 05:31 allergy/gluten free diet Sulfa (Sulfonamide Allergy Intermediate RASH Verified 09/06/24 05:31 Antibiotics) Home Medications Medication Instructions Recorded Confirmed Type multivitamin 1 tab PO QAM 08/20/18 09/19/24 History acetaminophen 650 mg 650 mg PO UD PRN Pain 12/18/19 09/19/24 History tablet,extended release (Tylenol Arthritis Pain) cholecalciferol (vitamin D3) 50 2,000 unit PO QAM 12/18/19 09/19/24 History mcg (2,000 unit) tablet (Vitamin D3) triamcinolone acetonide 0.1 % 1 applic topical UD PRN Rash 09/17/20 09/19/24 History topical cream montelukast 10 mg tablet 10 mg PO QPM 02/15/21 09/19/24 History (Singulair) fluticasone propionate 50 1 spray intranasal QAM #9.9 mL 04/01/24 09/19/24 Rx mcg/actuation nasal spray,suspension (Flonase Allergy Relief) amoxicillin 500 mg capsule 2,000 mg PO DIRECTED PRN PRIOR 04/17/24 09/19/24 History TO DENTAL PROCEDURES cyanocobalamin (vitamin B-12) 500 500 mcg PO HS 04/17/24 09/19/24 History mcg tablet (Vitamin B-12) warfarin 5 mg tablet 5 mg PO UD 04/17/24 09/19/24 History levothyroxine 100 mcg tablet 100 mcg PO QAM #90 tabs 04/24/24 09/19/24 Rx hydrochlorothiazide 12.5 mg tablet 12.5 mg PO QAM PRN edema #30 tabs 04/27/24 09/19/24 Rx metoprolol succinate 25 mg 12.5 mg (1/2 x 25 mg) PO BID #90 06/01/24 09/19/24 Rx tablet,extended release 24 hr tabs digoxin 125 mcg (0.125 mg) tablet 125 mcg PO QAM #30 tabs 07/20/24 09/19/24 Rx tramadol 50 mg tablet 50 mg PO DAILY pain #30 tabs 07/20/24 09/19/24 Rx omega 1-lmy-hjv-fish oil 1,200 mg 1 cap PO QAM 08/17/24 09/19/24 History (144 mg-216 mg) capsule (Fish Oil) acetaminophen 500 mg tablet 1,000 mg (2 x 500 mg) PO Q8 #30 09/07/24 09/19/24 Rx (Tylenol Extra Strength) tabs docusate sodium 100 mg capsule 100 mg PO BID 14 days #28 caps 09/07/24 09/19/24 Rx oxycodone 5 mg tablet 5 - 10 mg (1 - 2 x 5 mg) PO Q4H 09/07/24 09/19/24 Rx PRN pain #18 tabs tramadol 50 mg tablet 50 - 100 mg (1 - 2 x 50 mg) PO Q4H 09/07/24 09/19/24 Rx PRN pain #18 tabs enoxaparin 60 mg/0.6 mL 60 mg (0.6 mL) subcut Q12H #3 mL 09/08/24 09/19/24 Rx subcutaneous syringe (Lovenox) Patient History Medical History (Updated 09/19/24 @ 15:57 by Emma Mccauley PA-C) Atrial flutter dx 04/2024; started on meds; scheduled for cardioversion 05/24/24 History of blood transfusion several, nikki-operative; during mitral valve replacement, hysterectomy and right TKA Allergy to gluten Hypothyroidism Chronic anticoagulation Pulmonary nodule History of COVID-19 2021 & 2022 no issues since Patent foramen ovale PFO suspected per 04/09/23 ECHO. also mentioned in 06/01/23 Cardio note. no mention of PFO in 04/2024 ECHO Osteoarthritis Osteopenia History of breast cancer right, 2012, lumpectomy. DCIS IBS (irritable bowel syndrome) History of colon polyps Interstitial lung disease per chart review, 'hx of Siegel's lung/hypersensitivity pneumonitis tx at [facility]' 2018 Arthritis History of pneumonia (04/2024) hospitalized for CAP [facility] 04/17/24-04/20/24. pt denies ongoing sx History of asthma unclear if dx in hx. Pt denies breathing problems, known active dx. No medications. History of restless legs syndrome Resolved Seasonal allergies History of DIC syndrome s/p MVR surgery 1994 Surgical History (Updated 09/19/24 @ 06:41 by Sean Almazan MD) Status post mitral valve replacement 2/2 Severe MR. Mechanical mitral valve replacement (1994). On AC with warfarin. Followed by cardiology. History of esophagogastroduodenoscopy (EGD) History of bronchoscopy History of partial hysterectomy ovaries remain History of carpal tunnel release Left History of tooth extraction History of cardiac cath 1994, no stents. Prior to mitral valve replacement. History of dilation and curettage History of cataract surgery Bilateral History of lumpectomy of right breast History of colonoscopy W/polypectomy History of appendectomy History of arthroscopy Left Knee History of total knee replacement Right 2011 Family History Mother Family hx of colon cancer Osteoarthritis Colorectal cancer Cancer Brother Prostate cancer Son Diabetes Family history of diabetes mellitus Sister Breast cancer Family history of reaction to anesthesia Father Cancer Denies family history of Ovarian cancer Myocardial infarction Stroke Social History Smoking Status: Never smoker Second Hand Exposure: No; Do You Dip or Chew Tobacco: No; Hx Alcohol Use: Yes Alcohol type: wine Alcohol Intake Frequency: 2-3 x/Week Hx Substance Use: No Preferred Language: Divehi Communication Ability: Effective Visual Impairment: No Limitations Hearing Ability: Normal Nurse Administrator Required: No Beliefs That Will Affect Care: None marital status: Current Living Situation: Spouse current occupational status: employed and retired current occupation: [employer] employee Other Information That Helps Us Care for You: No Feels Safe at Home: Yes Safety Concerns: Feels Safe At This Time Childhood Exposure to Second-Hand Smoke: Yes (Mother) Diet: gluten free Diet Comment: dairy free during the past year weight has: remained stable Dental Care, Regularly: Yes Physical Activity Frequency: Daily Seatbelt Use: always Sunscreen Use: Yes Assistive Devices: Crutches and Walker Review of Systems 2 Review of Systems: as per HPI. Physical Exam Musculoskeletal: Exam of her left lower extremity: She has ecchymosis down to the base of her toes and up to the inner thigh. The calf is mildly tender with palpation but supple and soft. She tolerates full ankle dorsiflexion, plantarflexion, inversion and eversion. Trace dorsalis posterior tibial pulse and 1+ dorsalis pedis pulse present. Wiggles her toes freely. Strength of her ankle is 5/5. She is unable to independently straight leg raise today. Limited due to pain. She has a tense effusion to the left knee. No prepatellar effusion is noted. No active drainage of the incision. The henrietta are retained. She is some dried bloody drainage at the proximal and distal aspects of the incision. There is a fracture blister that has dried on the lateral aspect of her knee. Otherwise skin is healthy and intact. On the medial and lateral aspects of the joint line there is hard tense effusions. Tolerates logrolling of the left hip without any discomfort in her hip itself. The thigh is soft and supple. Results & Data Vital Signs (Past 12 Hours) Vital Signs Temp Pulse Resp BP BP Pulse Ox Pulse Ox 09/19/24 15:38 36.6 C 15 114/66 92 09/19/24 15:38 92 09/19/24 14:42 77 17 134/59 L 100 09/19/24 14:00 74 13 119/53 L 100 09/19/24 13:42 80 12 103/71 100 09/19/24 12:36 82 23 128/61 98 09/19/24 11:21 83 09/19/24 10:48 86 09/19/24 10:42 86 12 136/75 99 09/19/24 10:00 92 H 16 123/71 99 09/19/24 09:57 90 17 09/19/24 09:00 90 15 137/69 95 09/19/24 08:30 85 21 123/45 L 98 09/19/24 08:00 95 H 26 H 133/65 09/19/24 07:36 93 H 15 98 09/19/24 07:03 91 H 14 126/63 96 09/19/24 06:53 78 09/19/24 06:33 85 21 100 09/19/24 06:03 85 22 100 09/19/24 05:51 87 30 H 100 09/19/24 05:45 88 29 H 100 09/19/24 05:21 87 21 97 09/19/24 05:06 87 16 115/64 100 09/19/24 04:18 81 20 93 09/19/24 04:03 85 24 O2 Del Method O2 Del Method O2 Flow Rate 09/19/24 15:38 Room Air 09/19/24 15:38 Room Air 09/19/24 14:42 Nasal Cannula 4 09/19/24 14:00 09/19/24 13:42 09/19/24 12:36 09/19/24 11:21 09/19/24 10:48 09/19/24 10:42 Nasal Cannula 4 09/19/24 10:00 09/19/24 09:57 09/19/24 09:00 Nasal Cannula 4 09/19/24 08:30 09/19/24 08:00 09/19/24 07:36 09/19/24 07:03 Nasal Cannula 2 09/19/24 06:53 09/19/24 06:33 09/19/24 06:03 09/19/24 05:51 09/19/24 05:45 09/19/24 05:21 09/19/24 05:06 09/19/24 04:18 09/19/24 04:03 Laboratory Results 09/19/24 09/19/24 09/19/24 Range/Units 11:08 07:04 03:54 WBC 13.93 H (4.8-10.8) K/ul RBC 2.63 L (4.20-5.40) M/uL Hgb 8.2 L 8.7 L (12.0-16.0) g/dl Hct 24.4 L 26.1 L (37.0-47.0) % MCV 99.2 (80.0-100.0) fL MCH 33.1 (25.0-34.0) pg MCHC 33.3 (32.0-36.0) g/dL RDW Std Deviation 58.1 H (36.4-46.3) fL RDW Coeff of Aracelis 16.7 H (11.5-14.5) % Plt Count 440 H (130-400) K/uL MPV 9.0 L (9.4-12.4) fL Immature Gran % (Auto) 1.9 % Neut % (Auto) 79.0 % Lymph % (Auto) 7.8 % [place] % (Auto) 9.5 % Eos % (Auto) 1.4 % Baso % (Auto) 0.4 % Neut # (Auto) 11.00 H (1.40-6.50) K/uL Lymph # (Auto) 1.09 L (1.20-3.40) K/uL [place] # (Auto) 1.33 H (0.11-0.59) K/uL Eos # (Auto) 0.19 (0.00-0.50) K/uL Baso # (Auto) 0.06 (0.00-0.20) K/uL Immature Gran # (Auto) 0.26 H (0.01-0.20) K/uL ESR 18 (0-30) mm/hr PT 38.6 H (9.0-12.0) Seconds INR 4.0 H (0.9-1.1) Sodium 130 L (136-145) mmol/L Potassium 4.0 (3.5-5.1) mmol/L Chloride 97 L (98-107) mmol/L Carbon Dioxide 21 (21-32) mmol/L Anion Gap 12 H (3-11) BUN 14 (6-23) mg/dl Creatinine 0.48 L (0.6-1.2) mg/dl Est Cr Clr Drug Dosing 101.5 ml/min eGFR 99.95 BUN/Creatinine Ratio 29.2 H (10-20) Glucose 114 H (70-99(Fasting)) mg/dl Calcium 8.8 (8.6-10.3) mg/dl Total Bilirubin 1.4 H (0.2-1.0) mg/dl AST 29 (13-39) U/L ALT 15 (7-52) U/L Alkaline Phosphatase 90 (34-104) U/L C-Reactive Protein 6.13 H (0-0.5) mg/dl Total Protein 5.7 L (6.0-8.3) gm/dl Albumin 3.5 (3.4-5.0) gm/dl Globulin 2.2 L (2.5-4.0) gm/dl Albumin/Globulin Ratio 1.6 (0.9-2) Digoxin 0.4 L (0.8-2.0) ng/ml Blood Type O Positive Antibody Screen NEGATIVE Diagnostic Findings Knee X-Ray 09/19/24 04:08 EXAM: XR knee LT 1 or 2V routine CLINICAL HISTORY: LT KNEE REPLACEMENT 09/06/24 PAIN/SWELLING/REDNESS INPATIENT TECHNIQUE: X-ray of the left knee was performed ( 2 views ) AP and lateral projections. COMPARISON: 09/06/2024. FINDINGS: Status post left knee joint total replacement with no signs of loosening or dislocation. Moderate sclerotic reaction is seen at the upper tibial plateau and shaft. No acute fracture was seen. Slightly increased soft tissue swelling around the knee joint is seen. Reduced bone mineralization. IMPRESSION: 1. Status post left knee joint total replacement with no signs of loosening or dislocation. 2. Slightly increased soft tissue swelling around the knee joint is seen. No other interval changes compared to the prior study. 3. Osteopenia. DISCLAIMER:A subtle bone abnormality or fracture may not be readily apparent on x-rays, thus clinical correlation and further imaging including follow up CT, MRI, or follow up x-rays are advised as needed. Electronically signed by Javier Butler 09-19-2024 05:[address] 09/19/24 06:16 Clinical history: Severe pain Technique: Axial computed tomography images were obtained of the left knee after the administration of intravenous contrast. Sagittal and coronal reconstructions were obtained Comparison is made to the radiographs obtained earlier today Findings: No fracture is identified. Again seen is a left knee total arthroplasty in expected position. There is no definite sign of infection or loosening.. No focal osseous lesion is evident The visualized musculature appears unremarkable. There is a large knee effusion that is heterogeneous and partially high attenuation. This could be due to blood products. Surgical skin henrietta are again seen anteriorly There is mild multifocal subcutaneous edema. No definite soft tissue abscess or hematoma is seen Impression: 1. Large hemorrhagic knee effusion 2. Left knee replacement Electronically signed by Paul Escobar 09-19-2024 09:02 AM
[2024-09-19 16:40] LABS: Hematocrit (blood only) 24.7 % (37.0-47.0)
[2024-09-19] MEDS: ACETAMINOPHEN 1000 MG/100 ML IV IV PRN (18:16)
[2024-09-19] MEDS: PHYTONADIONE 10 MG in DEXTROSE 5% 50 ML IV STA (20:15)
[2024-09-19 23:02] LABS: Hematocrit (blood only) 23.5 % (37.0-47.0); Hemoglobin 7.5 g/dl (12.0-16.0)
[2024-09-19] MEDS ORDERED: SODIUM CHLORIDE 0.9% 100 ML IV PRN (23:31)
[2024-09-19] MEDS ORDERED: SODIUM CHLORIDE 0.9% 50 ML IV PRN (23:31)
[2024-09-20] MEDS: oxyCODONE HCL IR 5 MG TAB (IMMEDIATE RELEASE) PO STA (04:26)
[2024-09-20 05:46] LABS: Basophils # (auto) 0.04 K/uL (0.00-0.20); Basophils % (auto) 0.4 %; Eosinophils % (auto) 1.9 %; Hematocrit (blood only) 24.5 % (37.0-47.0); Hemoglobin 7.8 g/dl (12.0-16.0); Immature Granulocytes # (auto) 0.18 K/uL (0.01-0.20); Immature Granulocytes % (auto) 1.7 %; Lymphocytes # (auto) 0.61 K/uL (1.20-3.40); Lymphocytes % (auto) 5.7 %; Mean Corpuscular Hemoglobin 32.6 pg (25.0-34.0); Mean Corpuscular Hgb Conc 31.8 g/dL (32.0-36.0); Mean Corpuscular Volume 102.5 fL (80.0-100.0); Monocytes # (auto) 0.83 K/uL (0.11-0.59); Monocytes % (auto) 7.8 %; Neutrophils # (auto) 8.82 K/uL (1.40-6.50); Neutrophils % (auto) 82.5 %; Platelet Count 330 K/uL (130-400); RDW Coefficient of Variation 17.1 % (11.5-14.5); RDW Standard Deviation 62.5 fL (36.4-46.3); Red Blood Count 2.39 M/uL (4.20-5.40); White Blood Count 10.68 K/ul (4.8-10.8)
[2024-09-20 06:05] LABS: Albumin Globulin Ratio 1.5 (0.9-2); Albumin Level 3.1 gm/dl (3.4-5.0); BUN Creatinine Ratio 20.5 (10-20); Calcium 8.7 mg/dl (8.6-10.3); Creatinine Clr Calc Pharmacy 110.7 ml/min; Globulin 2.1 gm/dl (2.5-4.0); Magnesium 1.8 mg/dl (1.7-2.4); Potassium 4.9 mmol/L (3.5-5.1); Total Protein 5.2 gm/dl (6.0-8.3)
[2024-09-20 06:27] LABS: INR 1.3 (0.9-1.1); Prothrombin Time 13.6 Seconds (9.0-12.0)
[2024-09-20 06:39] LABS: Polychromasia 1+
[2024-09-20] MEDS ORDERED: fentaNYL citrate PF 100 MCG/2 ML VIAL ONE (11:42)
[2024-09-20] MEDS ORDERED: MIDAZOLAM HCL 1 MG/ML 2ML VIAL ONE (11:42)
[2024-09-20] MEDS ORDERED: PROPOFOL IV EMULSION 10 MG/ML 20 ML VIAL IV ONE (11:45)
--- NOTE | 2024-09-20 11:52 | History & Physical Bridge Note ---
Date of Service September 20, 2024 History & Physical Bridge Note I have examined the patient, reviewed the History & Physical and in the interval since the performance of the History & Physical I have noted the following changes of clinical significance: no changes noted. She is having minimal pain. Her leg swelling is much improved. She has extensive bruising. There is no wound erythema or drainage. There is a tense left knee effusion. Hemoglobin 8 hematocrit 25. INR 1.3. She has 2 units of blood available.
[2024-09-20] MEDS ORDERED: ONDANSETRON INJ 2 MG/ML 2 ML VIAL IV PRN (11:53)
[2024-09-20] MEDS ORDERED: ePHEDrine sulfate 50 MG/ML AMP IV PRN (11:53)
[2024-09-20] MEDS ORDERED: ATROPINE SULFATE 0.1 MG/ML 10ML SYR IV PRN (11:53)
[2024-09-20] MEDS ORDERED: fentaNYL citrate PF 100 MCG/2 ML VIAL IV PRN (11:53)
--- NOTE | 2024-09-20 11:53 | Anesthesiology Consultation ---
Date of Service September 20, 2024 Assessment & Plan (1) Encounter for pre-operative examination: Chart Review Chart Review: Acceptable Risk for Surgery and Patient NOT seen in Pre Admission Testing Consults Requested none History Surgery Operation Date: 09/20/24 07:00 Proposed Procedures p Left Knee Incision and Drainage, Evacuation of Hematoma - Phill Quispe MD Height/Weight Height: 5 ft 7 in Weight: 63.8 kg Allergies Allergy/AdvReac Type Severity Reaction Status Date / Time gluten Allergy Intermediate gluten Verified 09/06/24 05:31 allergy/gluten free diet Sulfa (Sulfonamide Allergy Intermediate RASH Verified 09/06/24 05:31 Antibiotics) Medications Home Medications Medication Instructions Recorded Confirmed Last Taken multivitamin 1 tab PO QAM 08/20/18 09/19/24 08/31/24 08:00 acetaminophen 650 mg 650 mg PO UD PRN Pain 12/18/19 09/19/24 09/05/24 20:00 tablet,extended release (Tylenol Arthritis Pain) cholecalciferol (vitamin D3) 50 2,000 unit PO QAM 12/18/19 09/19/24 08/31/24 08:00 mcg (2,000 unit) tablet (Vitamin D3) triamcinolone acetonide 0.1 % 1 applic topical UD PRN Rash 09/17/20 09/19/24 07/01/21 topical cream montelukast 10 mg tablet 10 mg PO QPM 02/15/21 09/19/24 09/05/24 20:00 (Singulair) fluticasone propionate 50 1 spray intranasal QAM #9.9 mL 04/01/24 09/19/24 09/06/24 04:30 mcg/actuation nasal spray,suspension (Flonase Allergy Relief) amoxicillin 500 mg capsule 2,000 mg PO DIRECTED PRN PRIOR 04/17/24 09/19/24 Unknown TO DENTAL PROCEDURES cyanocobalamin (vitamin B-12) 500 500 mcg PO HS 04/17/24 09/19/24 08/31/24 20:00 mcg tablet (Vitamin B-12) warfarin 5 mg tablet 5 mg PO UD 04/17/24 09/19/24 08/30/24 08:00 levothyroxine 100 mcg tablet 100 mcg PO QAM #90 tabs 04/24/24 09/19/24 09/06/24 04:30 hydrochlorothiazide 12.5 mg tablet 12.5 mg PO QAM PRN edema #30 tabs 04/27/24 09/19/24 Unknown metoprolol succinate 25 mg 12.5 mg (1/2 x 25 mg) PO BID #90 06/01/24 09/19/24 09/06/24 04:30 tablet,extended release 24 hr tabs digoxin 125 mcg (0.125 mg) tablet 125 mcg PO QAM #30 tabs 07/20/24 09/19/24 09/06/24 04:30 tramadol 50 mg tablet 50 mg PO DAILY pain #30 tabs 07/20/24 09/19/24 09/05/24 13:00 omega 8-bqr-edx-fish oil 1,200 mg 1 cap PO QAM 08/17/24 09/19/24 08/31/24 08:00 (144 mg-216 mg) capsule (Fish Oil) acetaminophen 500 mg tablet 1,000 mg (2 x 500 mg) PO Q8 #30 09/07/24 09/19/24 Unknown (Tylenol Extra Strength) tabs docusate sodium 100 mg capsule 100 mg PO BID 14 days #28 caps 09/07/24 09/19/24 Unknown oxycodone 5 mg tablet 5 - 10 mg (1 - 2 x 5 mg) PO Q4H 09/07/24 09/19/24 Unknown PRN pain #18 tabs tramadol 50 mg tablet 50 - 100 mg (1 - 2 x 50 mg) PO Q4H 09/07/24 09/19/24 Unknown PRN pain #18 tabs enoxaparin 60 mg/0.6 mL 60 mg (0.6 mL) subcut Q12H #3 mL 09/08/24 09/19/24 Unknown subcutaneous syringe (Lovenox) Active Medications Generic Name Dose Route Start Last Admin Trade Name Freq PRN Reason Stop Dose Admin Acetaminophen 1,000 mg 09/19/24 10:09/20/24 05:50 Acetaminophen 1000 Mg/100 Ml Iv IV 09/22/24 10:25 1,000 mg Q8H PRN Administration Pain or Fever Digoxin 0.125 mg 09/19/24 10:26 09/20/24 08:04 Digoxin 0.125 Mg Tab PO 10/19/24 10:25 0.125 mg QAM MARISOL Administration Hydromorphone HCl 1 mg 09/19/24 06:12 09/19/24 08:26 Hydromorphone Inj 1 Mg/Ml Syringe IV 10/03/24 06:11 1 mg Q30M PRN Administration severe Pantoprazole Sodium 40 mg in 10 mls @ 5 mls/min 09/19/24 10:26 09/20/24 08:03 Protonix IV 10/19/24 10:25 5 mls/min DAILY MARISOL Administration Levothyroxine Sodium 100 mcg 09/19/24 10:26 09/20/24 05:50 Levothyroxine Sodium 100 Mcg Tablet PO 10/19/24 10:25 100 mcg DAILYBB MARISOL Administration Metoprolol Succinate 12.5 mg 09/19/24 10:26 09/20/24 08:04 Metoprolol Succ 25mg Ext Rel Tab PO 10/19/24 10:25 12.5 mg BID MARISOL Administration NPO Date Last Intake of Fluids: 09/19/24 Time Last Intake of Fluids: 20:00 Last Intake of Fluids Comment: sip of water 0804 w/meds Date Last Intake of Solids: 09/19/24 Time Last Intake of Solids: 19:00 Past Medical History Medical History Atrial flutter dx 04/2024; started on meds; scheduled for cardioversion 05/24/24 History of blood transfusion several, nikki-operative; during mitral valve replacement, hysterectomy and right TKA Allergy to gluten Hypothyroidism Chronic anticoagulation Pulmonary nodule History of COVID-19 2021 & 2022 no issues since Patent foramen ovale PFO suspected per 04/09/23 ECHO. also mentioned in 06/01/23 Cardio note. no mention of PFO in 04/2024 ECHO Osteoarthritis Osteopenia History of breast cancer right, 2012, lumpectomy. DCIS IBS (irritable bowel syndrome) History of colon polyps Interstitial lung disease per chart review, 'hx of Siegel's lung/hypersensitivity pneumonitis tx at [facility]' 2019 Arthritis History of pneumonia (04/2024) hospitalized for CAP [facility] 04/17/24-04/20/24. pt denies ongoing sx History of asthma unclear if dx in hx. Pt denies breathing problems, known active dx. No medications. History of restless legs syndrome Resolved Seasonal allergies History of DIC syndrome s/p MVR surgery 1994 Past Family History Family History Mother Family hx of colon cancer Osteoarthritis Colorectal cancer Cancer Brother Prostate cancer Son Diabetes Family history of diabetes mellitus Sister Breast cancer Family history of reaction to anesthesia n/v Father Cancer Denies family history of Ovarian cancer Myocardial infarction Stroke Past Surgical History Surgical History Status post mitral valve replacement 2/2 Severe MR. Mechanical mitral valve replacement (1994). On AC with warfarin. Followed by cardiology. History of esophagogastroduodenoscopy (EGD) History of bronchoscopy History of partial hysterectomy ovaries remain History of carpal tunnel release Left History of tooth extraction History of cardiac cath 1994, no stents. Prior to mitral valve replacement. History of dilation and curettage History of cataract surgery Bilateral History of lumpectomy of right breast History of colonoscopy W/polypectomy History of appendectomy History of arthroscopy Left Knee History of total knee replacement Right 2011 Social History Smoking Status: Never smoker Do You Dip or Chew Tobacco: No Hx Alcohol Use: Yes Alcohol type: wine alcohol intake frequency: 0-2 drinks per day Alcohol Intake Frequency Comment: 1 glass of wine every night Hx Substance Use: No substance use type: does not use Physical Exam Vital Signs Last Vital Signs Temp 98.6 F 09/20/24 09:55 Pulse 80 09/20/24 09:55 Resp 18 09/20/24 09:55 BP 111/55 L 09/20/24 09:55 Pulse Ox 98 09/20/24 09:55 O2 Del Method Room Air 09/20/24 09:55 O2 Flow Rate 4 09/19/24 14:42 Testing Laboratory Results 09/20/24 05:23 09/20/24 05:23 PT 13.6 Seconds (9.0-12.0) H 09/20/24 05:23 INR 1.3 (0.9-1.1) H 09/20/24 05:23 Blood Type O Positive 09/19/24 07:04 Antibody Screen NEGATIVE 09/19/24 07:04
[2024-09-20] MEDS: ceFAZolin 2000MG 2,000 MG/15 ML SYR IV ONE (12:18)
[2024-09-20] MEDS ORDERED: DEXAMETHASONE SOD INJ 4 MG/ML VIAL ONE (12:22)
[2024-09-20] MEDS ORDERED: ONDANSETRON INJ 2 MG/ML 2 ML VIAL ONE (12:22)
[2024-09-20] MEDS ORDERED: HYDROmorphone INJ 2 MG/ML SYR/VIAL ONE ×2 (12:23→13:01)
[2024-09-20] MEDS: TRANEXAMIC ACID / 0.7% NACL 1000MG/100ML BAG IV ONE (12:26)
[2024-09-20] MEDS ORDERED: SODIUM CHLORIDE 0.9% PF INJ 10 ML VIAL ONE (13:01)
[2024-09-20] MEDS: VANCOMYCIN HCL 1000MG/20ML VIAL ONE (13:35)
[2024-09-20] MEDS ORDERED: PHENYLEPHRINE 100MCG/ML 5ML SYR ONE (13:49)
--- NOTE | 2024-09-20 13:55 | Hospitalist Progress Note ---
Date of Service September 20, 2024 Assessment & Plan (1) Status post left knee replacement: Plan: Pain and swelling of left knee/status post left total knee arthroplasty To OR for hemarthrosis evacuation Follow up as per orthopedics sheila (2) Pain and swelling of left knee: Plan: Acetaminophen 1 g IV every 8 hours as needed for mild pain or fever Dilaudid 1 mg IV every 30 minutes as needed for severe pain (3) Chronic anticoagulation: Plan: -INR reversed with vitamin K -1.3 today -Coumadin on hold for surgery (4) S/P mitral valve replacement: (5) Atrial flutter: Plan: continue digoxin and metoprolol succinate Plan PT/OT evalaution post procedure Admission and Anticipated Discharge Date Admission Date: September 19, 2024 Subjective Pt awaiting OR this am. No events overnight. Review of Systems Review of Systems: CONST: Negative for fever, body aches and chills. HENT: Negative for neck pain/stiffness, headache, congestion, sore throat, swelling. EYES: Negative for discharge/pain or vision changes. RESP: Negative for cough/hemoptysis and shortness of breath. CV: Negative chest pain, difficulty breathing, palpitations. ABD: Negative pain, nausea, vomiting. : Negative increase frequency, dysuria, blood in urine or stool. MUSC: Negative for muscle aches, edema. Left knee swelling SKIN: Negative rash, lesions/sores. NEURO: Negative headache, dizziness, weakness. Physical Exam Physical Exam: GENERAL APPEARANCE NAD, activity normal for age, well developed/ well nourished, no cyanosis, pallor, or diaphoresis. EYES lids/conjunctiva normal. EARS/NOSE/THROAT Mucous membranes moist, nares normal, lips/teeth normal uvula midline without oral pharyngeal erythema, exudate or swelling TMs normal bilaterally. No lymphangitis/lymphedema. HEAD/NECK normocephalic atraumatic, no facial trauma, neck is supple. RESPIRATORY respiratory effort normal, speaks in full sentences, no tripod p osition, no accessory muscle use. Lungs clear to auscultation without rhonchi, wheezes, rales CARDIAC Regular rate and rhythm, no edema. ABDOMINAL Soft, ND/NT. No evidence of fluid wave. No pulsatile masses on exam, rebound tenderness, Nielsen sign or pain over Mcburney's point. MUSCLES/EXTREMITIES No abnormal range of motion, left knee swelling. SKIN Warm, pink and dry. No rashes, dermatoses, petechiae or lesions. NEUROLOGICAL Speech is clear and appropriate. Normal level of consciousness. Gait and coordination are normal. 5/5 strength in all extremities. PSYCH Normal mood and affect. Judgement/competence is appropriate Results & Data Results & Data Vital Signs (Past 12 Hours) Vital Signs Temp Pulse Pulse Resp BP Pulse Ox O2 Del Method 09/20/24 09:55 37 C 80 18 111/55 L 98 Room Air 09/20/24 08:04 79 09/20/24 07:55 Room Air 09/20/24 07:40 36.8 C 76 18 115/63 96 Room Air 09/20/24 05:40 78 09/20/24 03:39 36.7 C 80 16 112/61 92 Room Air PG Care Time/CCT Total # of Minutes Spent Total Time Spent with Patient: Total time spent is greater than 50% in coordination of care (as documented) at patient's floor/unit and/or counseling patient: Coding Level of Care Code 78900 SUB INP/OBS CARE 2/35MIN Diagnoses Status post left knee replacement Z96.652 Pain and swelling of left knee M25.562; M25.462 Chronic anticoagulation Z79.01 S/P mitral valve replacement Z95.2 Atrial flutter I48.92
--- NOTE | 2024-09-20 15:03 | Operative Report ---
Post Operative Report Pre & Post Diagnosis Operation Date: 09/20/24 07:00 Pre-Op Diagnosis: Hemarthrosis of left knee status post left total knee arthroplasty Post-Op Diagnosis: Hemarthrosis of left knee status post left total knee arthroplasty I identified the patient and participated in the time-out.: Yes Procedure Operation Date: 09/20/24 07:00 Actual Procedures p Left Knee Incision and Drainage, Evacuation of Hematoma(Left) - Phill Quispe MD Surgeon Phill Quispe MD Edge Cutter Emma Mccauley physicians hotel administrative assistant no resident or fellow available Estimated Blood Loss 100 Findings Consistent with Post-Op Diagnosis Specimens Culture x 2. #1 was superficial subcutaneous tissue #2 was a deep periprosthetic culture. Drains Hemovac x 1 deep intra-articular Anesthesia Type General Regional Complications none Disposition Accompanied Patient To Recovery: No Disposition: Recovery Room Indications Julieta is 74 years old. She is 2 weeks status post an otherwise uncomplicated total knee arthroplasty. Thursday evening she developed significantly increased pain and swelling in her knee. She was seen in the ER and admitted to the hospital with a suspected hemarthrosis. This was confirmed by CT scan and physical examination. She is on chronic Coumadin for mitral valve replacement. We talked about her options and she elected to proceed with surgical intervention. I recommended evacuation of the hematoma. This significantly affected her ability to function and rehabilitate. She did not have any clinical evidence of infection. There was some bruising around the incision but no erythema or drainage. She has been afebrile. Description of Procedure Informed consent. Patient identified. She identified the procedure site as the left knee. I marked with my initials. A preoperative surgical timeout was performed. A preop dose of intravenous antibiotics was given. TXA given. She was taken to the operating room positioned supine on the operating room table. A bump was placed under the left hip and a tourniquet on the left thigh. A padded post under the left calf. There was a large healed blister on the lateral side of the knee which was debrided essentially removing some superficial skin. It has been 2 weeks since surgery. Her henrietta were removed. There is no redness or drainage from her incision however there were 2 areas of marginal wound necrosis. 1 was distally about 1-1/2 cm. Very minor. During the surgical procedure I elected to ellipse out the skin margins as this was incompletely healed and there was some dark skin present on either side of the wound. I removed about 2 mm on either side full-thickness through the skin excising with a scalpel. This left a defect that was about 4 to 5 mm wide and about 2 to 2-1/2 cm long. Superficial only. Any stitches that were encountered from the previous surgery were removed. At the end of the surgical procedure this was closed using 3-0 nylon near far far near stitches and horizontal mattress stitches. DVT prophylaxis intraoperatively with foot pumps. Postop early mobility and resumption of some form of chemoprophylaxis. The knee was then prepped and draped in usual sterile fashion scrubbed with Betadine and then painted with Betadine. After the prep and drape I attempted reaspiration of the knee with an 18-gauge needle which was unsuccessful. I then went ahead and opened the proximal wound. Approximately the proximal half of the incision. The previous Vicryl stitches superficial and deep were removed as encountered. There was no purulence or drainage but the wound was not healed as well as the other parts of the more distal incision. 1 part was because of skin invagination over a 1 cm area. I went ahead and used a rongeur to debride the subcutaneous tissue area. I used a scalpel to excise the lateral skin flap which had some areas of epidermal necrosis present. This was over an area a couple millimeters wide and 5 or 6 cm long. Because of the wound healing status I elected to obtain a superficial culture which I labeled #1 superficial. I then washed this area out. I open the arthrotomy removing the #2 FiberWire sutures from the top of the patella proximally. The knee was then entered and the large hematoma was identified. Prior to starting the procedure the limb was exsanguinated with the Esmarch and tourniquet inflated to 250 mmHg. A large hematoma was evacuated which I would estimate to be about 250 cc of liquid and coagulated blood. I used my finger to evacuate this from the medial lateral gutters as well as the retro fat pad area. A deep culture labeled #2 periprosthetic was then obtained from the medial and lateral gutters of the knee joint. Subsequently the joint was irrigated with 3 L of sterile saline. There was substantial diffuse oozing which initially attempted to control with electrocautery and then with pressure. This then required the use of inserted a deep Hemovac drain with 22 holes and put 1/2 g of vancomycin powder into the suprapatellar pouch. The quad tendon arthrotomy was then closed with db which very nicely stopped the use. I then #1 PDS. The subcutaneous tissue was closed with 0 Vicryl. I then used 2-0 nylon on the skin near far far near stitches and horizontal mattresses with confirmation of skin edge eversion. The leg was cleaned with wet and dry sponges a saw sterile dressing was applied Xeroform 4 x 4's ABD soft wrap and a full-length Marek with the knee immobilizer. Patient awakened from anesthesia without difficulty she was then taken to the recovery room in stable condition. Specimens were as mentioned above. Counts were correct and blood loss is estimated to be 100 cc not counting the hematoma. At the conclusion the operation I spoke to patient's informed of my findings postop instructions were given a quarter of a gram of vancomycin was placed into the superficial wound. There were no complications. Plan is to follow-up on cultures. Check an H&H in recovery. Discussed her anticoagulation with cardiology and medicine. For now we will hold at least 24 hours. Will hold knee range of motion until the drain is pulled. Postop dose of TXA. Postop antibiotics. She may weight-bear as tolerated. The hematoma looks completely benign with essentially loculated and liquid blood. I attest to the content of the Intraoperative Record and any orders documented therein. Any exceptions are noted below.
--- NOTE | 2024-09-20 15:08 | Operative Report ---
Post Operative Report Pre & Post Diagnosis Operation Date: 09/20/24 07:00 Pre-Op Diagnosis: Hemarthrosis of left knee status post left total knee arthroplasty Post-Op Diagnosis: Hemarthrosis of left knee status post left total knee arthroplasty I identified the patient and participated in the time-out.: Yes Procedure Operation Date: 09/20/24 07:00 Actual Procedures p Left Knee Incision and Drainage, Evacuation of Hematoma(Left) - Phill Quispe MD Surgeon Phill Quispe M.D. Splicing Supervisor Emma Mccauley physicians automotive service assistant no resident or fellow available Estimated Blood Loss 100 Findings Consistent with Post-Op Diagnosis marginal skin edge necrosis/breakdown Hematoma left knee Specimens superficial culture left knee #1 intra-articular culture #2 Anesthesia Type General Description of Procedure Patient Was taken to the operating room and placed under general anesthesia. Time out was performed. She was given IV Ancef and IV TXA preoperatively. She was prepped and draped in routine sterile fashion. Is present during the entire case please see Dr. Quispe's operative report for further details. She tolerated the procedure well without any intraoperative complications. She was awakened and transferred to the recovery room in stable condition. I attest to the content of the Intraoperative Record and any orders documented therein. Any exceptions are noted below.
--- NOTE | 2024-09-20 15:27 | Anesthesiology Progress Note ---
Date of Service September 20, 2024 Anesthesia Post Procedure Vital Signs Vital Signs: Temp Pulse Pulse Pulse Resp BP Pulse Ox 09/20/24 15:15 97.5 F L 81 14 129/52 L 100 09/20/24 15:10 82 14 128/58 L 100 09/20/24 15:00 85 15 134/55 L 98 09/20/24 14:50 85 15 128/49 L 100 09/20/24 14:44 97.3 F L 90 15 94/52 L 97 09/20/24 09:55 98.6 F 80 18 111/55 L 98 09/20/24 08:04 79 09/20/24 07:55 09/20/24 07:40 98.2 F 76 18 115/63 96 09/20/24 05:40 78 09/20/24 03:39 98.1 F 80 16 112/61 92 09/19/24 22:32 98.6 F 80 16 107/61 93 09/19/24 21:43 81 09/19/24 20:17 97.9 F 77 18 112/65 94 09/19/24 17:03 75 09/19/24 15:38 97.9 F 15 114/66 92 09/19/24 15:38 Pulse Ox O2 Del Method O2 Del Method O2 Flow Rate 09/20/24 15:15 Nasal Cannula 2 09/20/24 15:10 Nasal Cannula 2 09/20/24 15:00 Room Air 09/20/24 14:50 Oxymask 5 09/20/24 14:44 Oxymask 5 09/20/24 09:55 Room Air 09/20/24 08:04 09/20/24 07:55 Room Air 09/20/24 07:40 Room Air 09/20/24 05:40 09/20/24 03:39 Room Air 09/19/24 22:32 Room Air 09/19/24 21:43 09/19/24 20:17 Room Air 09/19/24 17:03 09/19/24 15:38 Room Air 09/19/24 15:38 92 Room Air Pain Intensity Left Knee: Pain Intensity: 3 Transfer of Care Handoff Completed per policy Notes Mental Status: alert / awake / arousable and participated in evaluation Patient Amnestic to Procedure: Yes Nausea / Vomiting: adequately controlled Pain: adequately controlled Airway Patency, RR, SpO2: stable & adequate BP & HR: stable & adequate Hydration State: stable & adequate Anesthetic Complications: no major complications apparent and Pt Satisfied with anesthetic care
[2024-09-20] MEDS: ceFAZolin 2,000 MG/15 ML IV PUSH IV ONE (15:29)
[2024-09-20] MEDS: TRANEXAMIC ACID 100 MG/ML 10 ML VIAL IV SCH (15:29)
[2024-09-20] MEDS ORDERED: oxyCODONE HCL IR 5 MG TAB (IMMEDIATE RELEASE) PO PRN (15:46)
[2024-09-20] MEDS ORDERED: NALOXONE HCL 0.4 MG/1 ML VIAL/CARP IV PRN (15:46)
[2024-09-20] MEDS ORDERED: VANCOMYCIN CONSULT ACTIVE PRN (15:46)
[2024-09-20] MEDS ORDERED: MAGNESIUM HYDROXIDE SUSP 30 ML UDC PO PRN (15:46)
[2024-09-20] MEDS ORDERED: bisacodyL 10 MG SUPP PR PRN (15:46)
[2024-09-20] MEDS: traMADol HCL 50 MG TABLET PO PRN (16:23)
--- NOTE | 2024-09-20 16:36 | Cardiology Consultation ---
Date of Consultation September 20, 2024 History of Present Illness Reason for Consultation: Anticoagulation postop Attending Physician: Vinod Adler MD History of Present Illness 1. Anticoagulation: She has a mechanical mitral valve and is on warfarin chronically, this is appropriate and is the only oral anticoagulant that can be safely used with this type of valve. Warfarin was reversed preoperatively. Mitral valves can be quite thrombogenic and it would be safest to get her back on anticoagulation as soon as possible. I would recommend starting warfarin now if possible as it would take several days for the INR to change, especially since it was reversed. There is probably not much benefit to giving her high doses of warfarin, starting at 5 mg daily is probably sufficient. In the meantime I would recommend starting heparin as soon as possible, and continue this until her INR increases to 3.0. If heparin can be started now that would be ideal, otherwise I would defer to surgery. Allergies Allergy/AdvReac Type Severity Reaction Status Date / Time gluten Allergy Intermediate gluten Verified 09/06/24 05:31 allergy/gluten free diet Sulfa (Sulfonamide Allergy Intermediate RASH Verified 09/06/24 05:31 Antibiotics) Home Medications Medication Instructions Recorded Confirmed Type multivitamin 1 tab PO QAM 08/20/18 09/19/24 History acetaminophen 650 mg 650 mg PO UD PRN Pain 12/18/19 09/19/24 History tablet,extended release (Tylenol Arthritis Pain) cholecalciferol (vitamin D3) 50 2,000 unit PO QAM 12/18/19 09/19/24 History mcg (2,000 unit) tablet (Vitamin D3) triamcinolone acetonide 0.1 % 1 applic topical UD PRN Rash 09/17/20 09/19/24 History topical cream montelukast 10 mg tablet 10 mg PO QPM 02/15/21 09/19/24 History (Singulair) fluticasone propionate 50 1 spray intranasal QAM #9.9 mL 04/01/24 09/19/24 Rx mcg/actuation nasal spray,suspension (Flonase Allergy Relief) amoxicillin 500 mg capsule 2,000 mg PO DIRECTED PRN PRIOR 04/17/24 09/19/24 History TO DENTAL PROCEDURES cyanocobalamin (vitamin B-12) 500 500 mcg PO HS 04/17/24 09/19/24 History mcg tablet (Vitamin B-12) warfarin 5 mg tablet 5 mg PO UD 04/17/24 09/19/24 History levothyroxine 100 mcg tablet 100 mcg PO QAM #90 tabs 04/24/24 09/19/24 Rx hydrochlorothiazide 12.5 mg tablet 12.5 mg PO QAM PRN edema #30 tabs 04/27/24 09/19/24 Rx metoprolol succinate 25 mg 12.5 mg (1/2 x 25 mg) PO BID #90 06/01/24 09/19/24 Rx tablet,extended release 24 hr tabs digoxin 125 mcg (0.125 mg) tablet 125 mcg PO QAM #30 tabs 07/20/24 09/19/24 Rx tramadol 50 mg tablet 50 mg PO DAILY pain #30 tabs 07/20/24 09/19/24 Rx omega 1-snt-mhx-fish oil 1,200 mg 1 cap PO QAM 08/17/24 09/19/24 History (144 mg-216 mg) capsule (Fish Oil) acetaminophen 500 mg tablet 1,000 mg (2 x 500 mg) PO Q8 #30 09/07/24 09/19/24 Rx (Tylenol Extra Strength) tabs docusate sodium 100 mg capsule 100 mg PO BID 14 days #28 caps 09/07/24 09/19/24 Rx oxycodone 5 mg tablet 5 - 10 mg (1 - 2 x 5 mg) PO Q4H 09/07/24 09/19/24 Rx PRN pain #18 tabs tramadol 50 mg tablet 50 - 100 mg (1 - 2 x 50 mg) PO Q4H 09/07/24 09/19/24 Rx PRN pain #18 tabs enoxaparin 60 mg/0.6 mL 60 mg (0.6 mL) subcut Q12H #3 mL 09/08/24 09/19/24 Rx subcutaneous syringe (Lovenox) Patient History Medical History Atrial flutter dx 04/2024; started on meds; scheduled for cardioversion 05/24/24 History of blood transfusion several, nikki-operative; during mitral valve replacement, hysterectomy and right TKA Allergy to gluten Hypothyroidism Chronic anticoagulation Pulmonary nodule History of COVID-19 2021 & 2022 no issues since Patent foramen ovale PFO suspected per 04/09/23 ECHO. also mentioned in 06/01/23 Cardio note. no mention of PFO in 04/2024 ECHO Osteoarthritis Osteopenia History of breast cancer right, 2012, lumpectomy. DCIS IBS (irritable bowel syndrome) History of colon polyps Interstitial lung disease per chart review, 'hx of Siegel's lung/hypersensitivity pneumonitis tx at [facility]' 2018 Arthritis History of pneumonia (04/2024) hospitalized for [facility] 04/17/24-04/20/24. pt denies ongoing sx History of asthma unclear if dx in hx. Pt denies breathing problems, known active dx. No medications. History of restless legs syndrome Resolved Seasonal allergies History of DIC syndrome s/p MVR surgery 1994 Surgical History Status post mitral valve replacement 2/2 Severe MR. Mechanical mitral valve replacement (1994). On AC with warfarin. Followed by cardiology. History of esophagogastroduodenoscopy (EGD) History of bronchoscopy History of partial hysterectomy ovaries remain History of carpal tunnel release Left History of tooth extraction History of cardiac cath 1994, no stents. Prior to mitral valve replacement. History of dilation and curettage History of cataract surgery Bilateral History of lumpectomy of right breast History of colonoscopy W/polypectomy History of appendectomy History of arthroscopy Left Knee History of total knee replacement Right 2011 Family History Mother Family hx of colon cancer Osteoarthritis Colorectal cancer Cancer Brother Prostate cancer Son Diabetes Family history of diabetes mellitus Sister Breast cancer Family history of reaction to anesthesia n/v Father Cancer Denies family history of Ovarian cancer Myocardial infarction Stroke Social History Smoking Status: Never smoker Second Hand Exposure: No; Do You Dip or Chew Tobacco: No; Hx Alcohol Use: Yes Alcohol type: wine Alcohol Intake Frequency: 2-3 x/Week Hx Substance Use: No Preferred Language: Romanian Communication Ability: Effective Visual Impairment: No Limitations Hearing Ability: Normal Studio Operator Required: No Beliefs That Will Affect Care: None marital status: Current Living Situation: Spouse current occupational status: employed and retired current occupation: [employer] employee Other Information That Helps Us Care for You: No Feels Safe at Home: Yes Safety Concerns: Feels Safe At This Time Childhood Exposure to Second-Hand Smoke: Yes (Mother) Diet: gluten free Diet Comment: dairy free during the past year weight has: remained stable Dental Care, Regularly: Yes Physical Activity Frequency: Daily Seatbelt Use: always Sunscreen Use: Yes Assistive Devices: Crutches and Walker Results & Data Vital Signs (Past 12 Hours) Vital Signs Temp Pulse Pulse Pulse Resp BP Pulse Ox 09/20/24 16:12 36.4 C L 87 20 117/48 L 98 09/20/24 15:42 36.4 C L 86 20 122/54 L 98 09/20/24 15:15 36.4 C L 81 14 129/52 L 100 09/20/24 15:10 82 14 128/58 L 100 09/20/24 15:00 85 15 134/55 L 98 09/20/24 14:50 85 15 128/49 L 100 09/20/24 14:44 36.3 C L 90 15 94/52 L 97 09/20/24 09:55 37 C 80 18 111/55 L 98 09/20/24 08:04 79 09/20/24 07:55 09/20/24 07:40 36.8 C 76 18 115/63 96 09/20/24 05:40 78 O2 Del Method O2 Flow Rate 09/20/24 16:12 Room Air 09/20/24 15:42 Room Air 09/20/24 15:15 Nasal Cannula 2 09/20/24 15:10 Nasal Cannula 2 09/20/24 15:00 Room Air 09/20/24 14:50 Oxymask 5 09/20/24 14:44 Oxymask 5 09/20/24 09:55 Room Air 09/20/24 08:04 09/20/24 07:55 Room Air 09/20/24 07:40 Room Air 09/20/24 05:40 PG Care Time/CCT Total # of Minutes Spent Total Time Spent with Patient: Total time spent is greater than 50% in coordination of care (as documented) at patient's floor/unit and/or counseling patient: Coding
[2024-09-20] MEDS: CEFEPIME 2000MG 2,000 MG/20 ML SYR IV SCH (17:35)
[2024-09-20] MEDS: VANCOMYCIN HCL 1,000 MG in DEXTROSE 5% 250 ML IV SCH (17:37)
[2024-09-20] MEDS: TRANEXAMIC ACID / 0.7% NACL 1,000 MG/100 ML BAG IV SCH (20:55)
[2024-09-20] MEDS: DOCUSATE SODIUM 100 MG CAP PO SCH (20:56)
[2024-09-20] MEDS: SENNA 8.6 MG TAB PO SCH (20:58)
[2024-09-21 05:39] LABS: Basophils # (auto) 0.03 K/uL (0.00-0.20); Basophils % (auto) 0.3 %; Eosinophils # (auto) 0.01 K/uL (0.00-0.50); Eosinophils % (auto) 0.1 %; Hematocrit (blood only) 22.2 % (37.0-47.0); Immature Granulocytes # (auto) 0.17 K/uL (0.01-0.20); Immature Granulocytes % (auto) 1.9 %; Lymphocytes % (auto) 5.5 %; Mean Corpuscular Hemoglobin 32.6 pg (25.0-34.0); Mean Corpuscular Hgb Conc 31.5 g/dL (32.0-36.0); Mean Corpuscular Volume 103.3 fL (80.0-100.0); Mean Platelet Volume 8.8 fL (9.4-12.4); Monocytes # (auto) 0.68 K/uL (0.11-0.59); Monocytes % (auto) 7.5 %; Neutrophils # (auto) 7.71 K/uL (1.40-6.50); Neutrophils % (auto) 84.7 %; Platelet Count 311 K/uL (130-400); RDW Coefficient of Variation 16.9 % (11.5-14.5); RDW Standard Deviation 62.5 fL (36.4-46.3); Red Blood Count 2.15 M/uL (4.20-5.40)
[2024-09-21 05:56] LABS: Albumin Globulin Ratio 1.5 (0.9-2); Albumin Level 2.9 gm/dl (3.4-5.0); BUN Creatinine Ratio 21.6 (10-20); Bilirubin,Total 0.9 mg/dl (0.2-1.0); Calcium 8.3 mg/dl (8.6-10.3); Creatinine Clr Calc Pharmacy 95.5 ml/min; Globulin 1.9 gm/dl (2.5-4.0); Magnesium 1.7 mg/dl (1.7-2.4); Potassium 5.1 mmol/L (3.5-5.1); Total Protein 4.8 gm/dl (6.0-8.3)
[2024-09-21] MEDS ORDERED: SODIUM CHLORIDE 0.9% 50 ML IV PRN (05:58)
[2024-09-21] MEDS ORDERED: SODIUM CHLORIDE 0.9% 100 ML IV PRN (05:58)
[2024-09-21 06:06] LABS: Polychromasia 1+
[2024-09-21 06:07] LABS: INR 1.1 (0.9-1.1); Prothrombin Time 11.4 Seconds (9.0-12.0)
[2024-09-21] MEDS: POLYETHYLENE (MIRALAX) 17 GM PACK PO ONE (08:17)
[2024-09-21] MEDS: MULTIVITAMIN TAB PO SCH (08:19)
--- NOTE | 2024-09-21 09:47 | Orthopedic Progress Note ---
Date of Service September 21, 2024 Assessment & Plan (1) Hemarthrosis of left knee: Plan: Pulled drain. Gram stain negative. Nutrition consult. Acute blood loss anemia requiring a transfusion. She is clinically asymptomatic. Discussed with her regarding the findings of the surgical procedure. There was less robust healing of the proximal portion of the wound compared to distally. I did not see any evidence of infection. I took a culture. The hemarthrosis was evacuated. At this point I see no evidence that this has reaccumulated to the previous degree. Overall she feels better. Spoke with Dr. Whatley. Cardiology consult noted. Need to balance the risks of bleeding with the risks of stroke related to her artificial heart valve. Starting the heparin drip tomorrow I think would be reasonable. At some point thereafter resume her Coumadin. There is a possible need for further surgery if she reaccumulates a hemarthrosis of significant degree. Also need to follow-up on the cultures. Continue the broad-spectrum IV antibiotics presently. Mechanical devices for DVT prophylaxis. Also the heparin starting tomorrow. She can be up with PT. Use walker. Weight-bear as tolerated. Be conservative given the recent hemarthrosis. The knee immobilizer can be discontinued and she may bend her knee now that the drain has been pulled. (2) Status post left knee replacement: Admission and Anticipated Discharge Date Admission Date: September 19, 2024 Subjective Pain well-controlled. Not lightheaded or dizzy. She received a unit of blood this morning. Surgical findings and results discussed. Physical Exam Physical Exam: She can do a leg lift. Her dressing is not removed but the suprapatellar pouch is not full. She has 5 out of 5 ankle and toe plantarflexion dorsiflexion inversion and eversion strength and palpable pedal pulses. Dressing is clean and dry. Drainage for the first 8 hours was 90 cc. There is minimal fluid in the barrientos presently. The drain is pulled and confirmed at 22 holes. Results & Data Vital Signs (Past 12 Hours) Vital Signs Temp Pulse Pulse Pulse Resp BP BP 09/21/24 09:09 78 09/21/24 08:21 36.6 C 75 18 105/56 L 09/21/24 08:18 81 09/21/24 07:20 09/21/24 07:20 36.6 C 76 18 113/66 09/21/24 07:20 36.6 C 76 18 113/66 09/21/24 06:50 36.6 C 78 18 111/63 09/21/24 06:35 36.7 C 76 18 111/59 L 09/21/24 06:20 36.6 C 76 18 106/56 L 09/21/24 05:57 36.5 C 80 18 93/51 L 09/21/24 05:48 75 09/21/24 03:23 36.7 C 81 16 105/60 09/20/24 23:16 09/20/24 22:16 36.6 C 83 16 108/61 09/20/24 21:50 81 Pulse Ox O2 Del Method O2 Flow Rate 09/21/24 09:09 09/21/24 08:21 93 0 09/21/24 08:18 09/21/24 07:20 Room Air 09/21/24 07:20 94 Room Air 09/21/24 07:20 94 09/21/24 06:50 96 09/21/24 06:35 94 09/21/24 06:20 94 09/21/24 05:57 96 Room Air 09/21/24 05:48 09/21/24 03:23 95 Room Air 09/20/24 23:16 Room Air 09/20/24 22:16 94 Room Air 09/20/24 21:50 Laboratory Results Laboratory Results WBC 9.10 K/ul (4.8-10.8) 09/21/24 05:25 RBC 2.15 M/uL (4.20-5.40) L 09/21/24 05:25 Hgb 7.0 g/dl (12.0-16.0) L 09/21/24 05:25 Hct 22.2 % (37.0-47.0) L 09/21/24 05:25 MCV 103.3 fL (80.0-100.0) H 09/21/24 05:25 MCH 32.6 pg (25.0-34.0) 09/21/24 05:25 MCHC 31.5 g/dL (32.0-36.0) L 09/21/24 05:25 RDW Std Deviation 62.5 fL (36.4-46.3) H 09/21/24 05:25 RDW Coeff of Aracelis 16.9 % (11.5-14.5) H 09/21/24 05:25 Plt Count 311 K/uL (130-400) 09/21/24 05:25 MPV 8.8 fL (9.4-12.4) L 09/21/24 05:25 Immature Gran % (Auto) 1.9 % 09/21/24 05:25 Neut % (Auto) 84.7 % 09/21/24 05:25 Lymph % (Auto) 5.5 % 09/21/24 05:25 Boyd % (Auto) 7.5 % 09/21/24 05:25 Eos % (Auto) 0.1 % 09/21/24 05:25 Baso % (Auto) 0.3 % 09/21/24 05:25 Neut # (Auto) 7.71 K/uL (1.40-6.50) H 09/21/24 05:25 Lymph # (Auto) 0.50 K/uL (1.20-3.40) L 09/21/24 05:25 [place] # (Auto) 0.68 K/uL (0.11-0.59) H 09/21/24 05:25 Eos # (Auto) 0.01 K/uL (0.00-0.50) 09/21/24 05:25 Baso # (Auto) 0.03 K/uL (0.00-0.20) 09/21/24 05:25 Immature Gran # (Auto) 0.17 K/uL (0.01-0.20) 09/21/24 05:25 Polychromasia 1+ 09/21/24 05:25 ESR 18 mm/hr (0-30) 09/19/24 03:54 PT 11.4 Seconds (9.0-12.0) 09/21/24 05:25 INR 1.1 (0.9-1.1) 09/21/24 05:25 Sodium 132 mmol/L (136-145) L 09/21/24 05:25 Potassium 5.1 mmol/L (3.5-5.1) 09/21/24 05:25 Chloride 100 mmol/L (98-107) 09/21/24 05:25 Carbon Dioxide 29 mmol/L (21-32) 09/21/24 05:25 Anion Gap 3 (3-11) 09/21/24 05:25 BUN 11 mg/dl (6-23) 09/21/24 05:25 Creatinine 0.51 mg/dl (0.6-1.2) L 09/21/24 05:25 Est Cr Clr Drug Dosing 95.5 ml/min 09/21/24 05:25 eGFR 98.50 09/21/24 05:25 BUN/Creatinine Ratio 21.6 (10-20) H 09/21/24 05:25 Glucose 138 mg/dl (70-99(Fasting)) H 09/21/24 05:25 Calcium 8.3 mg/dl (8.6-10.3) L 09/21/24 05:25 Magnesium 1.7 mg/dl (1.7-2.4) 09/21/24 05:25 Total Bilirubin 0.9 mg/dl (0.2-1.0) 09/21/24 05:25 AST 20 U/L (13-39) 09/21/24 05:25 ALT 9 U/L (7-52) 09/21/24 05:25 Alkaline Phosphatase 58 U/L (34-104) 09/21/24 05:25 C-Reactive Protein 6.13 mg/dl (0-0.5) H 09/19/24 03:54 Total Protein 4.8 gm/dl (6.0-8.3) L 09/21/24 05:25 Albumin 2.9 gm/dl (3.4-5.0) L 09/21/24 05:25 Globulin 1.9 gm/dl (2.5-4.0) L 09/21/24 05:25 Albumin/Globulin Ratio 1.5 (0.9-2) 09/21/24 05:25 Digoxin 0.4 ng/ml (0.8-2.0) L 09/19/24 07:04 Blood Type O Positive 09/19/24 07:04 Antibody Screen NEGATIVE 09/19/24 07:04 Crossmatch See Detail 09/19/24 07:04 Impressions
--- NOTE | 2024-09-21 09:55 | Pharmacy Report ---
Pharmacy PK ABX Note - Date of Service September 21, 2024 - Assessment and Plan 2 Assessment 74 year old F receiving empiric vancomycin and cefepime for treatment of possible knee infection in context of recent left knee replacement (09/06/24). POD #1 s/p left knee I&D. Pertinent microbiologic data includes: left knee cultures currently pending. Renal function appears to be at/near baseline. Leukocytosis on presentation (WBC: ~14 K). Day # 2 of antimicrobial therapy. Plan Vancomycin * Loading dose: 1000 mg IV x 1 * Maintenance dose: 1000 mg IV every 12 hours * Regimen is predicted to achieve target AUC/MIRYAM of 400-600 mg/L.hr * Trough level ordered for: 09/22/24 Cefepime * 2 g IV q8h - appropriately dosed for renal function/indication Pharmacy will continue to follow and will adjust dose/frequency as necessary. Thank you. Pharmacy has transitioned to AUC monitoring for vancomycin. AUC/MIRYAM is the preferred PK/PD target and is associated with decreased risk of nephrotoxicity compared to traditional trough targets.
[2024-09-21 11:04] LABS: Hematocrit (blood only) 25.9 % (37.0-47.0); Hemoglobin 8.4 g/dl (12.0-16.0); Mean Corpuscular Hemoglobin 32.4 pg (25.0-34.0); Mean Corpuscular Hgb Conc 32.4 g/dL (32.0-36.0); Mean Platelet Volume 8.7 fL (9.4-12.4); Platelet Count 319 K/uL (130-400); RDW Standard Deviation 64.3 fL (36.4-46.3); Red Blood Count 2.59 M/uL (4.20-5.40); White Blood Count 10.89 K/ul (4.8-10.8)
[2024-09-21] MEDS: bisacodyL 10 MG SUPP PR STA (16:25)
[2024-09-21] MEDS: POLYETHYLENE (MIRALAX) 17 GM PACK PO PRN (16:26)
--- NOTE | 2024-09-21 17:56 | Hospitalist Progress Note ---
Date of Service September 21, 2024 Assessment & Plan (1) Status post left knee replacement: Plan: Pain and swelling of left knee/status post left total knee arthroplasty To OR for hemarthrosis evacuation Follow up as per orthopedics sheila (2) Pain and swelling of left knee: Plan: Acetaminophen 1 g IV every 8 hours as needed for mild pain or fever Dilaudid 1 mg IV every 30 minutes as needed for severe pain (3) Chronic anticoagulation: Plan: -INR reversed with vitamin K -1.3 today -Coumadin on hold for surgery. plan to restart AC in am of 09/22, considering lovenox vs heparin gtt, will eventually go home on lovenox until knee is assesed to be out of risk for bleeding (4) S/P mitral valve replacement: Plan: in need of therpeutic anticoagulation (5) Atrial flutter: Plan: continue digoxin and metoprolol succinate Plan PT/OT evalaution post procedure Admission and Anticipated Discharge Date Admission Date: September 19, 2024 Subjective pain well controlled discussed anticoagulation with patient and surgery knee is not painful and pt is in no distress Physical Exam Physical Exam: cardiac is regular, no murmur, lungs are clear leg is bandaged Results & Data Results & Data Vital Signs (Past 12 Hours) Vital Signs Temp Pulse Pulse Pulse Resp BP BP 09/21/24 15:04 99.0 F 77 18 106/57 L 09/21/24 13:11 76 09/21/24 11:25 98.2 F 75 16 99/60 L 09/21/24 09:09 78 09/21/24 08:21 97.9 F 75 18 105/56 L 09/21/24 08:18 81 09/21/24 07:20 09/21/24 07:20 97.9 F 76 18 113/66 09/21/24 07:20 97.9 F 76 18 113/66 09/21/24 06:50 97.9 F 78 18 111/63 09/21/24 06:35 98.1 F 76 18 111/59 L 09/21/24 06:20 97.9 F 76 18 106/56 L 09/21/24 05:57 97.7 F 80 18 93/51 L Pulse Ox O2 Del Method O2 Flow Rate 09/21/24 15:04 93 Room Air 09/21/24 13:11 09/21/24 11:25 97 Room Air 09/21/24 09:09 09/21/24 08:21 93 0 09/21/24 08:18 09/21/24 07:20 Room Air 09/21/24 07:20 94 Room Air 09/21/24 07:20 94 09/21/24 06:50 96 09/21/24 06:35 94 09/21/24 06:20 94 09/21/24 05:57 96 Room Air Laboratory Results review cbc review chemistry PG Care Time/CCT Total # of Minutes Spent Total Time Spent with Patient: Total time spent is greater than 50% in coordination of care (as documented) at patient's floor/unit and/or counseling patient: Coding Level of Care Code 34434 SUB INP/OBS CARE 3/50MIN Diagnoses Status post left knee replacement Z96.652 Pain and swelling of left knee M25.562; M25.462 Chronic anticoagulation Z79.01 S/P mitral valve replacement Z95.2 Atrial flutter I48.92
[2024-09-22 04:40] LABS: Basophils # (auto) 0.05 K/uL (0.00-0.20); Basophils % (auto) 0.6 %; Eosinophils # (auto) 0.32 K/uL (0.00-0.50); Eosinophils % (auto) 3.9 %; Hematocrit (blood only) 26.5 % (37.0-47.0); Hemoglobin 8.5 g/dl (12.0-16.0); Immature Granulocytes # (auto) 0.13 K/uL (0.01-0.20); Immature Granulocytes % (auto) 1.6 %; Lymphocytes # (auto) 0.89 K/uL (1.20-3.40); Lymphocytes % (auto) 10.7 %; Mean Corpuscular Hemoglobin 32.3 pg (25.0-34.0); Mean Corpuscular Hgb Conc 32.1 g/dL (32.0-36.0); Mean Corpuscular Volume 100.8 fL (80.0-100.0); Mean Platelet Volume 8.8 fL (9.4-12.4); Monocytes # (auto) 0.76 K/uL (0.11-0.59); Monocytes % (auto) 9.2 %; Neutrophils # (auto) 6.14 K/uL (1.40-6.50); Platelet Count 294 K/uL (130-400); RDW Coefficient of Variation 18.5 % (11.5-14.5); Red Blood Count 2.63 M/uL (4.20-5.40); White Blood Count 8.29 K/ul (4.8-10.8)
[2024-09-22 05:00] LABS: Albumin Globulin Ratio 1.5 (0.9-2); Albumin Level 2.9 gm/dl (3.4-5.0); Bilirubin,Total 0.9 mg/dl (0.2-1.0); Calcium 8.3 mg/dl (8.6-10.3); Creatinine Clr Calc Pharmacy 97.4 ml/min; Magnesium 1.7 mg/dl (1.7-2.4); Total Protein 4.9 gm/dl (6.0-8.3)
[2024-09-22 05:05] LABS: Prothrombin Time 11.1 Seconds (9.0-12.0)
--- NOTE | 2024-09-22 07:56 | Hospitalist Progress Note ---
Date of Service September 22, 2024 Assessment & Plan (1) Status post left knee replacement: Plan: Pain and swelling of left knee/status post left total knee arthroplasty To OR for hemarthrosis evacuation 09/20 Dr Quispe [facility] culture negative to date (2) Pain and swelling of left knee: Plan: Acetaminophen 1 g IV every 8 hours as needed for mild pain or fever Dilaudid 1 mg IV every 30 minutes as needed for severe pain (3) Chronic anticoagulation: Plan: -INR reversed with vitamin K -1.3 today -Coumadin on hold for surgery. plan to restart AC in am of 09/22, discussed with cardiology will use Lovenox until knee is assessed to be out of risk for bleeding (4) S/P mitral valve replacement: Plan: in need of therpeutic anticoagulation (5) Atrial flutter: Plan: continue digoxin and metoprolol succinate Plan PT/OT evalaution post procedure Admission and Anticipated Discharge Date Admission Date: September 19, 2024 Subjective despite fleet enema, remains very constipated and will order enema today. left knee pain is controlled, ambulating with PT/OT. starting lovenox 09/22. Physical Exam Physical Exam: awake and no distress cardiac is rate controlled abd is soft maybe some lower quadrant fullness knee has dressing in place Results & Data Results & Data Vital Signs (Past 12 Hours) Vital Signs Temp Pulse Pulse Resp BP Pulse Ox O2 Del Method 09/22/24 03:49 98.2 F 77 20 128/67 95 Room Air 09/21/24 23:36 98.1 F 78 20 112/63 92 Room Air 09/21/24 21:41 81 09/21/24 20:00 Room Air 09/21/24 19:56 97.5 F L 79 20 111/61 94 Room Air Laboratory Results Reviewed CBC Reviewed chemistry PG Care Time/CCT Total # of Minutes Spent Total Time Spent with Patient: Total time spent is greater than 50% in coordination of care (as documented) at patient's floor/unit and/or counseling patient: Coding Level of Care Code 81877 SUB INP/OBS CARE 3/50MIN Diagnoses Status post left knee replacement Z96.652 Pain and swelling of left knee M25.562; M25.462 Chronic anticoagulation Z79.01 S/P mitral valve replacement Z95.2 Atrial flutter I48.92
[2024-09-22] MEDS ORDERED: ENOXAPARIN 1 MG/KG SQ SCH (08:00)
[2024-09-22] MEDS: VANCOMYCIN LEVEL ONE (08:57)
[2024-09-22] MEDS: ENOXAPARIN INJ 60 MG/0.6 ML SYR SQ SCH (10:17)
--- NOTE | 2024-09-22 10:20 | Pharmacy Report ---
Pharmacy PK ABX Note - Date of Service September 22, 2024 - Assessment and Plan 2 Assessment 09/22 * Vancomycin level this morning was 8.8mcg/mL. This extrapolates to an AUC < the target of 400-600 (~385). The vancomycin has been increased to 1gm iv q 8 hours. * POD #2 left knee I&D. leukocytosis has resolved and she remains afebrile. Left knee cultures are negative to date. 09/21 * 74 year old F receiving empiric vancomycin and cefepime for treatment of possible knee infection in context of recent left knee replacement (09/06/24). POD #1 s/p left knee I&D. Pertinent microbiologic data includes: left knee cultures currently pending. Renal function appears to be at/near baseline. Leukocytosis on presentation (WBC: ~14 K). Day # 3 of antimicrobial therapy. Plan Vancomycin * Maintenance dose increased to 1000 mg IV every 8 hours * Regimen is predicted to achieve target AUC/MIRYAM of 400-600 mg/L.hr * Another trough level has been ordered for 09/23 prior to 1300 dose. Cefepime * 2 g IV q8h - appropriately dosed for renal function/indication Pharmacy will continue to follow and will adjust dose/frequency as necessary. Thank you. Pharmacy has transitioned to AUC monitoring for vancomycin. AUC/MIRYAM is the preferred PK/PD target and is associated with decreased risk of nephrotoxicity compared to traditional trough targets.
[2024-09-22] MEDS: ACETAMINOPHEN 500 MG TAB PO PRN (10:32)
--- NOTE | 2024-09-22 10:44 | Orthopedic Progress Note ---
Date of Service September 22, 2024 Assessment & Plan (1) Hemarthrosis of left knee: Plan: POD 2- s/p I &D, evacuation of hematoma left knee with Dr. Quispe Abnormal Low protein level - nutrition consult placed. Patient has Boost at bedside but holding off on this until constipation handled. She "doesn't want to put anything more in her belly". Will continue to follow cultures - currently negative, no growth. Continue IV antibiotics while inpatient. Once discharge, if cultures remain negative then no need for oral antibiotics. If turns positive then most likely will need possible repeat I&D and ID consult. Acute blood loss anemia - asymptomatic, improved after transfusion POD 0. H/H stable. Will start heparin drip today and resume Warfarin. Dressing of left knee changed today. Pressure dressing applied, due to anticoagulation resuming today. Leave dressing in place until outpatient PT appt on 09/26/24 PT/OT to continue. May be out of bed with walker as tolerated. Be conservative given the recent hemarthrosis. With anticoagulation resuming, if hematoma reaccumulates, may need another surgical procedure. Allowed for full ROM to left knee as tolerated. Ice to left knee as needed. Encouraged elevation with pillows, cautioned advised to not put pillow directly under back of knee. Benjamin stockings applied to B/L lower extremities today. Will order AV impulse boots. She prefers these over the leg SCDs. Dr. Quispe present for today's visit. Patient understands and agrees with the plan. All questions answered. Tracking towards discharge to home in the next day or so, as long as cultures remain negative and hematoma doesn't reaccumulate. (2) Status post left knee replacement: Admission and Anticipated Discharge Date Admission Date: September 19, 2024 Subjective Julieta is resting in bed, states that she's very constipated and feels that she's going to need an enema today. She otherwise doesn't have pain in her left knee. She's been out of bed, ambulating with PT/OT. Denies any lightheadedness, chest pain, shortness of breath or nausea, or vomiting. Physical Exam Musculoskeletal: Exam of left knee/leg: Leg still with diffuse ecchymosis. Incision of left knee clean, dry and intact. Mild bloody drainage/dried on the gauze, no actively bleeding. No effusion. Minimal edema of left leg. Full ROM of left hip. ROM improved of left knee to almost 90. Distal sensation is normal. Sutures retained in incision. Steri-strips applied over healed areas of incision. no prepatellar effusion. Distal pulses 1+. 5 degrees of extension. Results & Data Vital Signs (Past 12 Hours) Vital Signs Temp Pulse Pulse Resp BP Pulse Ox O2 Del Method 09/22/24 10:17 72 09/22/24 08:00 36.4 C L 75 16 119/55 L 96 Room Air 09/22/24 08:00 Room Air 09/22/24 03:49 36.8 C 77 20 128/67 95 Room Air 09/21/24 23:36 36.7 C 78 20 112/63 92 Room Air Laboratory Results 09/20/24 13:30 Gram Stain - Final Knee,Left Aerobic and Anaerobic Culture - Preliminary No growth to date. 09/20/24 12:55 Gram Stain - Final Knee,Left Aerobic and Anaerobic Culture - Preliminary No growth to date. 09/22/24 09/21/24 04:23 10:49 WBC 8.29 10.89 H RBC 2.63 L 2.59 L Hgb 8.5 L 8.4 L Hct 26.5 L 25.9 L MCV 100.8 H 100.0 MCH 32.3 32.4 MCHC 32.1 32.4 RDW Std Deviation 66.0 H 64.3 H RDW Coeff of Aracelis 18.5 H 18.0 H Plt Count 294 319 MPV 8.8 L 8.7 L Immature Gran % (Auto) 1.6 Neut % (Auto) 74.0 Lymph % (Auto) 10.7 [place] % (Auto) 9.2 Eos % (Auto) 3.9 Baso % (Auto) 0.6 Neut # (Auto) 6.14 Lymph # (Auto) 0.89 L [place] # (Auto) 0.76 H Eos # (Auto) 0.32 Baso # (Auto) 0.05 Immature Gran # (Auto) 0.13 PT 11.1 INR 1.0 Sodium 136 Potassium 4.0 D Chloride 102 Carbon Dioxide 30 Anion Gap 4 BUN 10 Creatinine 0.50 L Est Cr Clr Drug Dosing 97.4 eGFR 98.97 BUN/Creatinine Ratio 20.0 Glucose 101 H Calcium 8.3 L Magnesium 1.7 Total Bilirubin 0.9 AST 20 ALT 10 Alkaline Phosphatase 68 Total Protein 4.9 L Albumin 2.9 L Globulin 2.0 L Albumin/Globulin Ratio 1.5 Random Vancomycin 8.8 L
[2024-09-22] MEDS: SOD PHOSPHATE/SOD BIPHOSPHATE ENEMA 132 ML BTL PR STA ×2 (11:00→19:51)
[2024-09-22] MEDS: VANCOMYCIN HCL 1,000 MG in DEXTROSE 5% 250 ML IV SCH (14:49)
--- NOTE | 2024-09-22 15:28 | Hospitalist Progress Note ---
Date of Service September 22, 2024 Assessment & Plan (1) Status post left knee replacement: Plan: Pain and swelling of left knee/status post left total knee arthroplasty To OR for hemarthrosis evacuation 09/20 Dr Quispe Follow up as per orthopedics [facility]-> wound culture negative to date (2) Pain and swelling of left knee: Plan: Acetaminophen 1 g IV every 8 hours as needed for mild pain or fever Dilaudid 1 mg IV every 30 minutes as needed for severe pain (3) Chronic anticoagulation: Plan: -INR reversed with vitamin K -1.3 today -Coumadin on hold for surgery. plan to restart AC in am of 09/22, discussed with cardiology will use Lovenox until knee is assessed to be out of risk for bleeding (4) S/P mitral valve replacement: Plan: in need of therpeutic anticoagulation (5) Atrial flutter: Plan: continue digoxin and metoprolol succinate (6) Anemia: Plan: acute blood loss anemia 1 u prbc transfused Plan PT/OT evalaution post procedure Admission and Anticipated Discharge Date Admission Date: September 19, 2024 Results & Data Results & Data Vital Signs (Past 12 Hours) Vital Signs Temp Pulse Pulse Resp BP Pulse Ox O2 Del Method 09/22/24 12:00 98.4 F 78 16 107/58 L 96 Room Air 09/22/24 10:17 72 09/22/24 08:00 73 09/22/24 08:00 97.5 F L 75 16 119/55 L 96 Room Air 09/22/24 08:00 Room Air 09/22/24 03:49 98.2 F 77 20 128/67 95 Room Air PG Care Time/CCT Total # of Minutes Spent Total Time Spent with Patient: Total time spent is greater than 50% in coordination of care (as documented) at patient's floor/unit and/or counseling patient: Coding Level of Care Code None Diagnoses Status post left knee replacement Z96.652 Pain and swelling of left knee M25.562; M25.462 Chronic anticoagulation Z79.01 S/P mitral valve replacement Z95.2 Atrial flutter I48.92 Anemia D64.9
[2024-09-23 06:29] LABS: Hematocrit (blood only) 26.9 % (37.0-47.0); Hemoglobin 8.6 g/dl (12.0-16.0); Mean Corpuscular Hemoglobin 32.2 pg (25.0-34.0); Mean Corpuscular Volume 100.7 fL (80.0-100.0); Mean Platelet Volume 8.9 fL (9.4-12.4); Platelet Count 271 K/uL (130-400); RDW Coefficient of Variation 17.6 % (11.5-14.5); RDW Standard Deviation 64.1 fL (36.4-46.3); Red Blood Count 2.67 M/uL (4.20-5.40)
[2024-09-23 06:50] LABS: Calcium 8.6 mg/dl (8.6-10.3); Potassium 3.8 mmol/L (3.5-5.1)
[2024-09-23 06:56] LABS: BUN Creatinine Ratio 15.6 (10-20); Creatinine Clr Calc Pharmacy 108.3 ml/min
[2024-09-23 06:58] LABS: Prothrombin Time 11.3 Seconds (9.0-12.0)
--- NOTE | 2024-09-23 10:21 | Hospitalist Progress Note ---
Date of Service September 23, 2024 Assessment & Plan (1) Status post left knee replacement: Plan: Pain and swelling of left knee/status post left total knee arthroplasty s/p hemarthrosis evacuation 09/20 Dr Quispe - Follow up as per orthopedics - appt on Wednesday 09/26 to have surgical bandages removed - Rocephin and Vanco throughout hospital stay -> wound culture negative to date, final result pending although with no growth yet, unlikely - will discontinue abx on discharge, ortho to follow up if growth results - pharmacy followed given Vancomycin - renal function stable (2) Pain and swelling of left knee: Plan: secondary to above - Acetaminophen 1 g PO every 8 hours prn for mild pain - Oxy 5 -10 prn for moderate to severe pain - tramadol 50-100 prn Patient stated her pain has been well controlled. Will send home on Tylenol prn and can continue home tramadol 50 mg. (3) Chronic anticoagulation: Plan: - INR reversed with vitamin K - INR 1.0 on discharge - Coumadin was on hold for surgery - Cardiology consulted - plan to restart AC in am of 09/22 - discussed with beam warper - will use Lovenox until knee is assessed to be out of risk for bleeding - discharge home on Lovenox until able to have appointment to assess knee - Follows with Dr. Lopez out pt - follow up within 1-2 weeks? (4) S/P mitral valve replacement: Plan: in need of therapeutic anticoagulation - see plan above (5) Atrial flutter: Plan: - EKG on admission showed NSR - continue digoxin and metoprolol succinate - telemetry monitoring did not show A fib (6) Anemia: Plan: acute blood loss anemia secondary to #1 - 1 u prbc transfused 09/21 - Hgb 8.6 - stable - repeat CBC in 1 week with PCP Plan VTE ppx: Lovenox - discharge home with Lovenox Diet: regular Code status: full Dispo: Discharge home with out patient PT follow up (appointment 09/26), ortho follow up (appointment 09/26), Cardiology follow up (1-2 weeks), and repeat CBC in 1 week with PCP follow up (1-2 weeks) Admission and Anticipated Discharge Date Admission Date: September 19, 2024 Review of Systems Review of Systems: see hpi Physical Exam Physical Exam: The patient is awake, alert and oriented 3, well developed and well nourished, normocephalic and atraumatic, in no acute distress. Non-toxic appearing. HEENT- EOMI, mucous membranes moist. Hearing grossly intact. Heart-normal S1 and S2. No murmurs, rubs or gallops. Lungs-clear bilaterally, no respiratory distress, no accessory muscle use. Abdomen-normal bowel sounds and soft. No ascites noted. Non-tender. Extremities- no clubbing, cyanosis, or edema. SAAD stockings and surgical bandages to left knee. Rheumatologic-normal range of motion. Psychiatric-tearful affect. Results & Data Results & Data Vital Signs (Past 12 Hours) Vital Signs Temp Pulse Pulse Resp BP Pulse Ox O2 Del Method 09/23/24 07:54 36.7 C 78 16 124/67 92 Room Air 09/23/24 07:16 82 09/23/24 04:36 36.8 C 75 20 120/67 92 Room Air 09/23/24 00:29 36.8 C 81 20 124/67 94 Room Air Laboratory Results CBC, PT/INR, BMP PG Care Time/CCT Total # of Minutes Spent Total Time Spent with Patient: Total time spent is greater than 50% in coordination of care (as documented) at patient's floor/unit and/or counseling patient: Coding Level of Care Code 12052 SUB INP/OBS CARE 3/50MIN Diagnoses Status post left knee replacement Z96.652 Pain and swelling of left knee M25.562; M25.462 Chronic anticoagulation Z79.01 S/P mitral valve replacement Z95.2 Atrial flutter I48.92 Anemia D64.9
[2024-09-23 11:26] VITALS: RESP 18; TEMP 97.9; O2SAT 95
--- NOTE | 2024-09-23 12:59 | Orthopedic Progress Note ---
Date of Service September 23, 2024 Assessment & Plan (1) Hemarthrosis of left knee: Plan: POD 3- s/p I &D, evacuation of hematoma left knee with Dr. uQispe Abnormal Low protein level - nutrition consult placed. Patient has Boost at bedside but holding off on this until constipation handled. She "doesn't want to put anything more in her belly". Cultures continue to be no growth to date. She does not need to go home on any oral antibiotics. Continue IV antibiotics while inpatient. Acute blood loss anemia - asymptomatic, improved after transfusion POD 0. H/H stable. Patient currently on Lovenox for DVT prophylaxis. Pressure dressing applied 09/22, due to anticoagulation resuming today. Leave dressing in place until outpatient PT appt on 09/26/24. PT/OT to continue. May be out of bed with walker as tolerated. Be conservative given the recent hemarthrosis. With anticoagulation resuming, if hematoma reaccumulates, may need another surgical procedure. Allowed for full ROM to left knee as tolerated. Ice to left knee as needed. Encouraged elevation with pillows, cautioned advised to not put pillow directly under back of knee. Saad stockings applied to B/L lower extremities today. Will order AV impulse boots. She prefers these over the leg SCDs. Patient understands and agrees with the plan. All questions answered. Discussed with hospitalist. Plan for discharge home later today. Discharge instructions were reviewed. (2) Status post left knee replacement: Admission and Anticipated Discharge Date Admission Date: September 19, 2024 Subjective Denies any pain in her left knee today. States that when she does try to lift her leg she still has some tightness across the top of her knee. She seems little upset when I enter the room. She states that someone told her she needs to continue to stay here for IV antibiotics. She feels that she is ready to go home. She feels that she will be better rested at home and will also have a better appetite at home. She did have a bowel movement yesterday and a small 1 this morning and feels better with that. She has been working with physical therapy. She has been using a walker to assist with ambulation. Physical Exam Musculoskeletal: Exam of her left knee: Dressing that was applied yesterday and the SAAD stockings still in place. I did elect to leave this in place and plan for dressing change on Thursday as an outpatient. She has full ankle range of motion and strength. No calf discomfort. Distal sensation is normal. Distal pulses are 1+. She is unable to independently straight leg raise and will not even try because she has had pain with that. She tolerates logrolling of her left hip. Results & Data Vital Signs (Past 12 Hours) Vital Signs Temp Pulse Pulse Resp BP Pulse Ox O2 Del Method 09/23/24 11:26 36.6 C 89 18 102/61 95 Room Air 09/23/24 07:54 36.7 C 78 16 124/67 92 Room Air 09/23/24 07:16 82 09/23/24 04:36 36.8 C 75 20 120/67 92 Room Air Laboratory Results 09/20/24 13:30 Gram Stain - Final Knee,Left Aerobic and Anaerobic Culture - Preliminary No growth to date. 09/20/24 12:55 Gram Stain - Final Knee,Left Aerobic and Anaerobic Culture - Preliminary No growth to date. 09/23/24 06:02 WBC 6.30 RBC 2.67 L Hgb 8.6 L Hct 26.9 L MCV 100.7 H MCH 32.2 MCHC 32.0 RDW Std Deviation 64.1 H RDW Coeff of Aracelis 17.6 H Plt Count 271 MPV 8.9 L PT 11.3 INR 1.0 Sodium 138 Potassium 3.8 Chloride 103 Carbon Dioxide 30 Anion Gap 5 BUN 7 Creatinine 0.45 L Est Cr Clr Drug Dosing 108.3 eGFR 101.52 BUN/Creatinine Ratio 15.6 Glucose 98 Calcium 8.6
--- NOTE | 2024-09-23 13:12 | Discharge Summary ---
Discharge Summary Date of Service September 23, 2024 Principal Dx & Hospital Course #1 = Principal Diagnosis (1) Status post left knee replacement: Pain and swelling of left knee/status post left total knee arthroplasty, found to have left knee hemarthrosis s/p hemarthrosis evacuation 09/20 Dr Quispe - Follow up as per orthopedics - appt on Wednesday 09/26 to have surgical bandages removed - Rocephin and Vanco throughout hospital stay -> wound culture negative to date, final result pending although with no growth yet, unlikely - will discontinue abx on discharge, ortho to follow up if growth results - pharmacy followed given Vancomycin - renal function stable (2) Pain and swelling of left knee: secondary to above - Acetaminophen 1 g PO every 8 hours prn for mild pain - Oxy 5 -10 prn for moderate to severe pain - tramadol 50-100 prn Patient stated her pain has been well controlled. Pain regimen per orthopedic team. (3) Chronic anticoagulation: - INR reversed with vitamin K - INR 1.0 on discharge - Coumadin held - Cardiology consulted - discussed with rn anesthetist - will use Lovenox until knee is assessed to be out of risk for bleeding - discharge home on Lovenox until able to have appointment to assess knee - Patient has home INR monitor, to have follow-up with PCP next week regarding anticoagulation treatment (4) S/P mitral valve replacement: in need of therapeutic anticoagulation - see plan above (5) Atrial flutter: - EKG on admission showed NSR - continue digoxin and metoprolol succinate - telemetry monitoring did not show A fib (6) Anemia: acute blood loss anemia secondary to #1 - 1 u prbc transfused 09/21 - Hgb 8.6 - stable - will give 1 month of supple of Iron supplement to be taken every other day - repeat CBC in 1 week with PCP Plan Tele: Sinus, Hr 70-80s. VTE ppx: Lovenox - discharge home with Lovenox Diet: regular Code status: full Dispo: Discharge home with out patient PT follow up (appointment 09/26), ortho follow up (appointment 10/05), and repeat CBC in 1 week with PCP follow up next week regarding anticoagulation Notes For Next Care Provider Patient will need bridged from Lovenox back to Coumadin when determined 'not at risk' for rebleeding by orthopedics. I am sending 10 day supply of Lovenox to cover through next week and weekend as will take roughly 5 days to reach therapeutic INR once cleared to restart Coumadin. Medication Changes From Visit Discontinue warfarin Lovenox 60 Mgs SQ every 12 hours Iron supplement to be taken every other day x 1 month Admission HPI Per Admitting Provider The patient is a 74-year-old female with a past medical history including vitamin B12 deficiency, gluten sensitive enteropathy, IBS, patent foramen ovale, Dupuytren's contracture, generalized osteoarthritis, hypothyroidism, hypersensitivity pneumonitis, status post mechanical mitral valve replacement, and history of lumpectomy. Patient presents to the emergency department with severe left knee pain as noted. She denies any recent trauma. She is requiring Dilaudid 1 mg IV for some improvement in her pain. Her hemoglobin was noted to have dropped from 10.4 down to 8.7. Her INR on warfarin is 4.0 Admission Exam Per Admitting Provider The patient is awake, alert and oriented 3, well developed and well nourished, normocephalic and atraumatic, lying in bed and in moderately severe distress due to left knee pain HEENT--PERRL, EOMI, mucous membranes and oropharynx dry. Neck--supple. No JVD. No bruits. Thyroid normal, trachea midline, no adenopathy. Heart--normal S1 and S2. MR murmur. No rubs or gallops. Lungs--clear bilaterally, no respiratory distress, no accessory muscle use. Abdomen--normal bowel sounds and soft. Nontender. Nondistended, no hernias or masses, no organomegaly. Extremities--right lower extremity normal. Left lower extremity, knee with henrietta intact, ecchymosis/bruising extends superiorly through the thigh Dermatologic--see above Neurologic--cranial nerves II through XII grossly intact. Rheumatologic-Limited range of motion left knee due to pain Psychiatric--normal affect. Discharge Exam The patient is awake, alert and oriented 3, well developed and well nourished, normocephalic and atraumatic, in no acute distress. Non-toxic appearing. HEENT- EOMI, mucous membranes moist. Hearing grossly intact. Heart-normal S1 and S2. No murmurs, rubs or gallops. Lungs-clear bilaterally, no respiratory distress, no accessory muscle use. Abdomen-normal bowel sounds and soft. No ascites noted. Non-tender. Extremities- no clubbing, cyanosis, or edema. ASAD stockings and surgical bandages to left knee. Rheumatologic-normal range of motion. Psychiatric-tearful affect. Discharge Plan Discharge Items Patient Disposition: Home - Self-Care Reason For Visit: INTRACTABLE POST-OP LEFT KNEE PAIN Discharge Diagnosis: 1. left knee hemarthrosis 2. pain and swelling of left knee 3. Chronic anticoagulation due to mitral valve placement Activity: Per Instructions section Activity Comment: To have out patient PT on Thursday - gradually increase as tole rated Weightbearing: Left weightbearing Weightbearing Comment: with a walker at all times. Non-emergency contact: Surgeon Call non-emergency contact if: you have any medication questions, your symptoms worsen, your pain is not controlled, your pain is worsening, your temperature is above 101, your wound has increased redness and your wound has increased drainage Follow-up/Referrals: physical, therapy [Other] - 09/26/24 1:00 pm Joshua Stahl MD [Primary Care Provider] - (Follow up next week (09/29 or )) Phill Quispe MD [Surgeon] - 10/05/24 2:30 pm Diet: Regular Addtl Attending Provider Instructions: You are seen in the hospital for hemarthrosis of your left knee. This was managed by orthopedics. Due to this bleeding in your knee, your Coumadin was held on admission. You are to use Lovenox at home until your bleeding risk is cleared by orthopedics. I have sent a 10-day supply to your pharmacy, although you are to be seen by your PCP regarding further anticoagulation. You were given IV antibiotics during your hospitalization. Your wound culture showed no growth for multiple days, although the results are not final as discussed. Orthopedics will follow up with these and call you if anything changes, and the need for possible outpatient antibiotics. At this time you do not need to take any antibiotics at home. You also experience what we call acute blood loss anemia, your blood levels are currently stable. I have sent an iron supplement to your pharmacy for you to take for the next month, this could be continued with your PCP. You can take this every other day. Iron supplements can sometimes cause dark tarry stool, stomach upset, nausea, constipation. With taking it every other day you should experience less side effects. You can take a [id number] stool softener as needed for constipation. You are to continue with your already scheduled physical therapy appointment on Thursday, as per orthopedics they are to remove your surgical dressings. Orthopedics will see you on 10/05. With any hospitalization, I recommend that you follow-up with your PCP next week regarding your Lovenox use and I would like for them to recheck a CBC in about 1 week to monitor your blood levels given the recent anemia. Addtl Precision Inspector Provider Instructions: You may put weight on your leg as tolerated. Use walker at all times when out of bed. No need for your knee immobilizer. You may advance range of motion as tolerated. Be conservative due to recent hematoma Ice with EZ wrap for 15-20 minutes as needed for pain/swelling. Elevate left leg frequently to aid in swelling reduction. Do not put a pillow directly behind your left knee. Start outpatient Physical therapy as scheduled on 09/26/24. Keep your dressing on your left knee until your physical therapy appointment on 09/26/24. Anticoagulation as per your [employer] team. Continue your Boost or protein shakes. This will aid in healing of your incision. Over the counter bowel regimen for constipation as needed. Saad stockings on left leg at all times. May remove the one on the right knee at night and reapply in the morning x 2 weeks. Pain control with Tylenol, alternated with tramadol and oxycodone as needed for pain (call the office if you need any refills of these medications) Follow up with Dr. Quispe as scheduled on 10/05/24. Please contact our office with any increased pain, swelling, bruising, drainage from incision, questions or concerns. Call [phone]. Pending Studies at Discharge: No Stand-Alone Forms: My uTaP, Smoking Cessation Medications and DC Order Prescriptions: New ferrous sulfate [Iron (ferrous sulfate)] 325 mg (65 mg iron) tablet 325 mg PO Q OTHER DAY Qty: 14 0RF Continued fluticasone propionate [Flonase Allergy Relief] 50 mcg/actuation spray,suspension 1 spray INTRANASAL QAM Qty: 9.9 3RF levothyroxine 100 mcg tablet 100 mcg PO QAM Qty: 90 3RF hydrochlorothiazide 12.5 mg tablet 12.5 mg PO QAM PRN (Reason: edema) Qty: 30 2RF Patient Comments: never taken it, never needed metoprolol succinate 25 mg tablet extended release 24 hr 12.5 mg PO BID Qty: 90 3RF digoxin 125 mcg (0.125 mg) tablet 125 mcg PO QAM Qty: 30 11RF tramadol 50 mg tablet 50 mg PO DAILY Qty: 30 5RF Hold Instructions: Resume after completed with Dr. Quispe's Tramadol Rx Instructions: Ongoing therapy montelukast [Singulair] 10 mg tablet 10 mg PO QPM triamcinolone acetonide 0.1 % cream 1 applic TOP UD PRN (Reason: Rash) Rx Instructions: Apply to areas of the trunk twice daily x 2 weeks as needed for flaring. multivitamin Tablet 1 tab PO QAM acetaminophen [Tylenol Arthritis Pain] 650 mg Tablet Extended Release 650 mg PO UD PRN (Reason: Pain) Hold Instructions: Resume on 10/08/24. hold while on Extra Strength Tylenol; resume once completed with 500mg tablets cholecalciferol (vitamin D3) [Vitamin D3] 2,000 unit Tablet 2,000 unit PO QAM cyanocobalamin (vitamin B-12) [Vitamin B-12] 500 mcg Tablet 500 mcg PO HS amoxicillin 500 mg capsule 2,000 mg PO DIRECTED PRN (Reason: PRIOR TO DENTAL PROCEDURES) omega 0-dly-ooo-fish oil [Fish Oil] 1,200 (144-216) mg Capsule 1 cap PO QAM acetaminophen [Tylenol Extra Strength] 500 mg Tablet 1,000 mg PO Q8 Qty: 30 0RF oxycodone 5 mg Tablet 5 - 10 mg PO Q4H PRN (Reason: pain) Qty: 18 0RF Rx Instructions: 5 mg for pain 1-5 10 mg for pain 6-10 alternate with tramadol for breakthrough pain tramadol 50 mg Tablet 50 - 100 mg PO Q4H PRN (Reason: pain) Qty: 18 0RF Rx Instructions: 50 mg for pain 1-5 100 mg for pain 6-10 Alternate with oxycodone docusate sodium 100 mg Capsule 100 mg PO BID 14 Days Qty: 28 0RF Rx Instructions: over the counter; take while on pain medication enoxaparin [Lovenox] 60 mg/0.6 mL syringe 60 mg subcut Q12H 10 Days Qty: 12 0RF Held warfarin 5 mg tablet 5 mg PO UD Hold Instructions: Until cleared by orthopedics Protocol: Dose Management Condition: Thursday Dose/Route: 7.5 mg Instruction: 1.5 x 5 mg tablets Condition: Thursday Dose/Route: 2.5 mg Instruction: 0.5 x 5 mg tablets Condition: Thursday Dose/Route: 5 mg Instruction: 1 x 5 mg tablet Condition: Thursday Dose/Route: 5 mg Instruction: 1 x 5 mg tablet Condition: Dose/Route: 5 mg Instruction: 1 x 5 mg tablet Condition: Thursday Dose/Route: 5 mg Instruction: 1 x 5 mg tablet Condition: Thursday Dose/Route: 5 mg Instruction: 1 x 5 mg tablet Protocol Text: Adjustment Start Date: Thursday09/12/24 INR Value: 3.0 INR Date: 09/12/24 Patient Comments: current is 5 mg daily in the evening 6x week/2.5 mg 1x week - adjusted based on INR Rx Instructions: 09/19: Per pharmacy, most recent pick on the has sig of : 1 tab po in addition to 1 mg for total of 6 mg dose. Original: 5 mg po pm RECENT CHANGE TO 5 MG QPM, UNTIL NEXT INR SCHEDULED. Discharge Orders: Discharge Order (Routine); Ordered 09/23/24 Ordered By: Jennifer Osuna Admission Data Admit Date/Time: 09/19/24 06:24 Attending Provider: Sherine Christianson Admit Provider: Sean Almazan Primary Care Provider: Joshua Stahl V. Other Providers: Sean Almazan; Phill Quispe Kip M.; Danielito Hemphill; Shon Lopez; Andrew Velazquez; Blas Rdz; Tj Churchill Jr; Jose Villatoro; Batsheva Hollingsworth; Lyndsay Griffith; Zoran Malik; Zoran Diop; Noel Ybarra; Emma Man; Jamar Horn; Estephania Perea; Gideon Bryson; Jamar Gautam; Macho Bose; Jeevan Howard; [facility] Other Interventions: Discharge Summary Assessment (RN) Last Done: 09/23/24 14:31 Hospital Stay Data Consultations 09/19/24 06:09 ED Decision to Admit Stat 09/19/24 06:24 Consult Orthopedic Surgery Routine 09/20/24 15:46 Consult Cardiology Routine Procedures Performed Operation Date: 09/20/24 07:00 Actual Procedures p Left Knee Incision and Drainage, Evacuation of Hematoma(Left) - Phill olsen MD Diagnostic Imagining Performed 09/19/24 06:16 CT knee LT w con Stat Pending Results Patient Have Any Pending Studies at Discharge: No Discharge Instructions Given to Patient (Per Discharging Provider) You are seen in the hospital for hemarthrosis of your left knee. This was managed by orthopedics. Due to this bleeding in your knee, your Coumadin was held on admission. You are to use Lovenox at home until your bleeding risk is cleared by orthopedics. I have sent a 10-day supply to your pharmacy, although you are to be seen by your PCP regarding further anticoagulation. You were given IV antibiotics during your hospitalization. Your wound culture showed no growth for multiple days, although the results are not final as discussed. Orthopedics will follow up with these and call you if anything changes, and the need for possible outpatient antibiotics. At this time you do not need to take any antibiotics at home. You also experience what we call acute blood loss anemia, your blood levels are currently stable. I have sent an iron supplement to your pharmacy for you to take for the next month, this could be continued with your PCP. You can take this every other day. Iron supplements can sometimes cause dark tarry stool, stomach upset, nausea, constipation. With taking it every other day you should experience less side effects. You can take a oqgu-fde-hgvhqjq stool softener as needed for constipation. You are to continue with your already scheduled physical therapy appointment on Thursday, as per orthopedics they are to remove your surgical dressings. Orthopedics will see you on 10/05. With any hospitalization, I recommend that you follow-up with your PCP next week regarding your Lovenox use and I would like for them to recheck a CBC in about 1 week to monitor your blood levels given the recent anemia. Total Time Total Time Spent Total Time Spent (In Minutes): 60 min Total Time Includes: Examination of the Patient, Discharge Planning, Medication Reconciliation and Communication With Other Providers (Ortho) Coding Level of Care Code 73366 INP/OBS DISCH >30 MIN Diagnoses Status post left knee replacement Z96.652 Pain and swelling of left knee M25.562; M25.462 Chronic anticoagulation Z79.01 S/P mitral valve replacement Z95.2 Atrial flutter I48.92 Anemia D64.9
[2024-09-23] MEDS: VANCOMYCIN LEVEL ONE (14:24)
[2024-09-23 14:32] VITALS: BP 107/58; PULSE 89
== END 2024-09-23 16:27 | disposition home or self-care (01) | DRG 464 ==
LOC: SUATTDRO → ED 03:39 → EDINP 06:24 → SUATTDRO 06:24 → 2N 15:16